=== PATIENT | male | born 1950 | race Caucasian/White ===

== ENCOUNTER 2020-12-17 10:09 | Inpatient (IN) ==
[2020-12-17] MEDS ORDERED: ONDANSETRON INJ 2 MG/ML 2 ML VIAL IV STA ×2 (11:54→14:15)
[2020-12-17] MEDS ORDERED: MoRPHine SULFATE 2 MG/ML CARP IV STA (11:54)
--- NOTE | 2020-12-17 11:56 | Emergency Department Note ---
History of Present Illness General Chief complaint: Pain (Generalized) Stated complaint: ACID REFLUX AND GENERALIZED PAIN Time Seen by Provider: 12/17/20 11:42 History of Present Illness Maximum Pain Intensity: 8 This is a 70-year-old male with a past medical history significant for that of [place], CHF, hypertension, chronic back pain, diabetes that presents to the emergency department via private vehicle accompanied by male with complaints of "acid reflux and generalized pain". The patient notes that he is here because he has been experiencing back pain for the past 40 years. This began when he fell from a ladder. He notes that the site of the pain is at L3-L4. He has been managing this. Then yesterday he notes that he went to pick something up and turned and went to grab the item quickly. As he did this he felt a pop and heard a pop in his back. He notes pain in his low back since that time. He has been in pain he notes for about 12 hours. Patient does note some soreness in the chest and does feel shortness of breath with the pain. He denies any true chest pain. Patient denies any pain radiating down his legs. In addition, the patient notes that he is now nauseous and is vomiting. He does also note some pain in the epigastric region. He denies any current anticoagulant use but recent hospitalization at [facility] is he notes he was on Plavix and heparin about a month ago but had a significant bleeding in the urine, stool and stomach. The antiplatelet/anticoagulants were then stopped. The patient denies any fevers or chills. Current pain /10. Patient does note that he is able to tolerate morphine and Zofran but does have significant adverse reactions to other meds. Home Medications Medication Instructions Recorded Confirmed Type aspirin 81 mg tablet,delayed 81 mg PO QAM 12/17/20 12/17/20 History release carvedilol 3.125 mg tablet 3.125 mg PO HS 12/17/20 12/17/20 History furosemide 40 mg tablet 40 mg PO BIDM 12/17/20 12/17/20 History insulin detemir U-100 100 unit/mL 20 unit SUBCUT BID 12/17/20 12/17/20 History (3 mL) subcutaneous pen (Levemir FlexTouch U-100 Insulin) isosorbide mononitrate 30 mg 30 mg PO DAILY 12/17/20 12/17/20 History tablet,extended release 24 hr pantoprazole 40 mg tablet,delayed 40 mg PO QAM 12/17/20 12/17/20 History release spironolactone 25 mg tablet 25 mg PO QAM 12/17/20 12/17/20 History trazodone 50 mg tablet 50 mg PO BID 12/17/20 12/17/20 History Allergies Allergy/AdvReac Type Severity Reaction Status Date / Time amlodipine [From [facility]] Allergy Confusion Verified 12/17/20 17:42 lisinopril Allergy Unconscious Verified 12/17/20 17:42 metoprolol Allergy Hypertensio Verified 12/17/20 17:42 n oxycodone Allergy "stops my Verified 12/17/20 17:42 breathing" tramadol Allergy "stops my Verified 12/17/20 17:42 breathing" insulin glargine AdvReac muscle Verified 12/17/20 17:42 [From Lantus U-100 Insulin] spasms metformin AdvReac muscle Verified 12/17/20 17:42 spasms sitagliptin [From Januvia] AdvReac makes me Verified 12/17/20 17:42 just vibrate [id number] Reductase AdvReac "it Verified 12/17/20 17:42 Inhibitor destroys my organs Past Med/Surg History Medical History (Updated 12/17/20 @ 21:13 by Deshawn Li PA-C) CAD (coronary artery disease) Cardiac cath in 2019 showed severe multivessel CAD, patient declining CABG Chronic back pain Chronic diastolic CHF (congestive heart failure) DM type 2 (diabetes mellitus, type 2) History of CVA (cerebrovascular accident) History of GI bleed History of hypertension Paranoid personality (disorder) Surgical History Hx of tonsillectomy Family History Denies family history of Heart disease Social History (Updated 12/17/20 @ 17:14 by VIC Davis) Smoking Status: Never smoker Second Hand Exposure: No; Do You Dip or Chew Tobacco: No; Tobacco Cessation Education Requested by Patient: No Hx Alcohol Use: No Hx Substance Use: No Preferred Language: Cape Verdean Communication Ability: Effective 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 Beliefs That Will Affect Care: None Current Living Situation: Family Current Living Situation Comment: lives with 90 year old mother Other Information That Helps Us Care for You: No Feels Safe at Home: Yes Safety Concerns: Feels Safe At This Time Assistive Devices: Cane and Glasses Assistive Devices Comment: none with paitient Review of Systems A total of 10 systems reviewed and were otherwise negative Physical Exam Vital Signs Vital Signs - 24 hr 12/17/20 10:31 12/17/20 10:36 12/17/20 11:54 Temperature 36.7 C Temperature Source Temporal Artery Scan Pulse Rate 92 H Pulse Rate [Right Finger] Pulse Rhythm [Right Finger] Pulse Strength [Right Finger] Respiratory Rate 20 Respiratory Effort / Characteristics Non-Labored Non-Labored Spontaneous Respiratory Depth Normal Normal Respiratory Pattern Regular Blood Pressure 159/80 H Blood Pressure [Right Arm] Blood Pressure Mean 106 Blood Pressure Mean [Right Arm] Blood Pressure Position [Right Arm] Pulse Oximetry 96 Oxygen Delivery Method Room Air Room Air Sepsis Recent Fever Within 48 Hours No Sepsis New/Unexplained Change in Mental Status N/A Sepsis Action Taken by Nursing No Action Required 12/17/20 12:04 12/17/20 14:00 Temperature Temperature Source Pulse Rate Pulse Rate [Right Finger] 92 H 95 H Pulse Rhythm [Right Finger] Regular Regular Pulse Strength [Right Finger] Normal Normal Respiratory Rate 20 16 Respiratory Effort / Characteristics Non-Labored Non-Labored Respiratory Depth Normal Normal Respiratory Pattern Regular Regular Blood Pressure Blood Pressure [Right Arm] 217/115 H 184/101 H Blood Pressure Mean Blood Pressure Mean [Right Arm] 149 128 Blood Pressure Position [Right Arm] Lying Lying Pulse Oximetry 95 96 Oxygen Delivery Method Room Air Room Air Sepsis Recent Fever Within 48 Hours Sepsis New/Unexplained Change in Mental Status Sepsis Action Taken by Nursing VITAL SIGNS - Vital signs and nursing notes were reviewed. Hypertensive, otherwise stable. GENERAL -70-year-old male appearing his stated age who is in no acute distress. Communicates well with provider and answers questions appropriately. SKIN -overlying the low back region within the integument there is a dark er ythematous hue with mottling noted throughout this region. No bleeding. No fluctuance. HEAD - NC/AT. EYES - Sclera anicteric. EARS - No deformities of external structures noted on gross examination bilaterally. No pain elicited with palpation of the tragus bilaterally. External auditory canals without discharge or otorrhea. Tympanic membranes pearly clemens without retraction or bulging. No fluid or purulent material visualized behind the TM. Handle of malleus, umbo, cone of light, pars tensa/flaccid all easily visualized. NOSE - Midline and without cyanosis. No epistaxis or purulent drainage noted. MOUTH/OROPHARYNX - Without perioral cyanosis. NECK - Neck with FROM. No nuchal rigidity. LUNGS - Chest wall symmetric without accessory muscle use, intercostals retractions, or central cyanosis. Normal vesicular breath sounds CTA B/L. No wheezes, rales, or rhonchi appreciated. CARDIAC - RRR with S1/S2. No murmur, rubs, or gallops appreciated. ABDOMEN - Abdominal contour normal without pulsations or visible masses. BS normoactive all four quadrants. No tenderness, palpable masses, hepato splenomegaly, or ascites noted. EXTREMITIES - No clubbing or peripheral cyanosis. +5/5 strength noted in UE/LE bilaterally. NEUROLOGIC - Cranial nerves II through XII grossly intact. PSYCH - A&Ox3 and cooperates fully with examiner. Pt is very pleasant and interacts well with examiner. Course Administered Medications Pantoprazole Sodium 40 mg/ (Dextrose) 100 mls @ 20 mls/hr IV Q5H AMANDO Stop: 01/16/21 13:14 Last Admin: 12/17/20 13:46 Dose: 8 mg/hr, 20 mls/hr Documented by: [id number] Sodium Chloride (Nss 1000ml) 1,000 mls @ 125 mls/hr IV .Q8H AMANDO Stop: 01/16/21 15:59 Last Admin: 12/17/20 17:48 Dose: 80 mls/hr Documented by: [id number] Nitroglycerin (Nitroglycerin 2% Ointment 30gm Tube) 1 inch EXT Q6 AMANDO Stop: 01/16/21 17:59 Last Admin: 12/17/20 17:48 Dose: 1 inch Documented by: [id number] Discontinued Medications Pantoprazole Sodium (Protonix Bolus/Drip) 0 mls @ 1 mls/hr IV ONE STA Stop: 12/17/20 12:55 Last Admin: 12/17/20 20:39 Dose: Not Given Documented by: [id number] Pantoprazole Sodium 80 mg/ (Dextrose) 120 mls @ 400 mls/hr IV NOW ONE Stop: 12/17/20 13:11 Last Infusion: 12/17/20 14:03 Dose: 0 mls/hr Documented by: [id number] Admin: 12/17/20 13:45 Dose: 400 mls/hr Documented by: [id number] Insulin Human Regular 5 units/ (Syringe) 5 mls @ 30 mls/min IV NOW STA Stop: 12/17/20 18:06 Last Admin: 12/17/20 18:22 Dose: 30 mls/min Documented by: [id number] Cosigned by: [id number] Insulin Aspart (Insulin Aspart 100 Units/Ml 3 Ml Pen) 0 units SC NOW STA Stop: 12/17/20 17:52 Last Admin: 12/17/20 18:21 Dose: 7 units Documented by: [id number] Cosigned by: [id number] Insulin Detemir (Insulin Detemir Flexpen/Flex Touch 100 Units/Ml 3ml) 25 units SC NOW STA Stop: 12/17/20 17:51 Last Admin: 12/17/20 18:20 Dose: 25 units Documented by: [id number] Cosigned by: [id number] Ioversol (Optiray 320 125ml) 120 ml IV ONCE ONE Stop: 12/17/20 13:11 Last Admin: 12/17/20 17:48 Dose: Not Given Documented by: [id number] Ioversol (Optiray 320 125ml) 120 ml IV ONCE ONE Stop: 12/17/20 13:25 Last Admin: 12/17/20 13:24 Dose: 120 ml Documented by: [id number] Morphine Sulfate (Morphine Sulfate 2 Mg/Ml Carp) 1 mg IV NOW STA Stop: 12/17/20 11:55 Last Admin: 12/17/20 12:23 Dose: 1 mg Documented by: [id number] Nitroglycerin (Nitroglycerin 2% Ointment 30gm Tube) Confirm Administered Dose 18 inch .ROUTE .STK-MED ONE Stop: 12/17/20 17:17 Last Admin: 12/17/20 17:48 Dose: Not Given Documented by: [id number] Ondansetron HCl (Ondansetron Inj 2 Mg/Ml 2 Ml Vial) 4 mg IV NOW STA Stop: 12/17/20 11:55 Last Admin: 12/17/20 12:23 Dose: 4 mg Documented by: [id number] Ondansetron HCl (Ondansetron Inj 2 Mg/Ml 2 Ml Vial) 4 mg IV NOW STA Stop: 12/17/20 14:16 Last Admin: 12/17/20 14:24 Dose: 4 mg Documented by: [id number] Medical Decision Making Laboratory Data Result diagrams: 12/17/20 19:33 12/17/20 19:33 Lab Results 12/17/20 12/17/20 12/17/20 Range/Units 12:11 12:12 12:12 WBC (4.8-10.8) K/uL RBC (4.7-6.1) M/uL Hgb (14.0-18.0) g/dL Hct (42-52) % MCV (80-100) fL MCH (25-34) pg MCHC (32-36) g/dL RDW Std Deviation (36.4-46.3) fL RDW Coeff of Pham (11.5-14.5) % Plt Count (130-400) K/uL MPV (7.4-10.4) fL Immature Gran % (Auto) % Neut % (Auto) % Lymph % (Auto) % Mclean % (Auto) % Eos % (Auto) % Baso % (Auto) % Neut # (Auto) (1.4-6.5) K/uL Lymph # (Auto) (1.2-3.4) K/uL Mclean # (Auto) (0.11-0.59) K/uL Eos # (Auto) (0-0.5) K/uL Baso # (Auto) (0-0.2) K/uL Immature Gran # (Auto) (0.00-0.02) K/uL PT 10.1 (9.0-12.0) Seconds INR 1.0 (0.9-1.1) APTT 26.4 (21.0-31.0) Seconds PTT Ratio 1.0 Sodium (136-145) mmol/L Potassium (3.5-5.1) mmol/L Chloride (98-107) mmol/L Carbon Dioxide (21-32) mmol/L Anion Gap (3-11) BUN (7-18) mg/dl Creatinine (0.6-1.4) mg/dl Est Cr Clr Drug Dosing Est GFR ( Amer) ml/min Est GFR (Non-Af Amer) ml/min BUN/Creatinine Ratio (10-20) Glucose (70-99) mg/dl Lactate Calcium (8.5-10.1) mg/dl Magnesium (1.8-2.4) mg/dl Total Bilirubin (0.2-1) mg/dl AST (15-37) U/L ALT (12-78) U/L Alkaline Phosphatase (45-117) U/L Total Creatine Kinase (39-308) U/L Troponin I (0-0.045) ng/ml Total Protein (6.4-8.2) gm/dl Albumin (3.4-5.0) gm/dl Globulin (2.5-4.0) gm/dl Albumin/Globulin Ratio (0.9-2) Lipase (73-393) U/L Procalcitonin (0-0.5) ng/ml TSH (0.300-4.500) uIu/ml Gastric Fluid pH 1 Gastric Occult Blood Positive A (Negative) COVID-19 Eval Order SARS-CoV-2 (PCR) (Negative) Blood Type AB Positive Antibody Screen NEGATIVE Crossmatch See Detail 12/17/20 12/17/20 12/17/20 Range/Units 12:12 12:50 12:50 WBC (4.8-10.8) K/uL RBC (4.7-6.1) M/uL Hgb (14.0-18.0) g/dL Hct (42-52) % MCV (80-100) fL MCH (25-34) pg MCHC (32-36) g/dL RDW Std Deviation (36.4-46.3) fL RDW Coeff of Pham (11.5-14.5) % Plt Count (130-400) K/uL MPV (7.4-10.4) fL Immature Gran % (Auto) % Neut % (Auto) % Lymph % (Auto) % Mclean % (Auto) % Eos % (Auto) % Baso % (Auto) % Neut # (Auto) (1.4-6.5) K/uL Lymph # (Auto) (1.2-3.4) K/uL Mclean # (Auto) (0.11-0.59) K/uL Eos # (Auto) (0-0.5) K/uL Baso # (Auto) (0-0.2) K/uL Immature Gran # (Auto) (0.00-0.02) K/uL PT (9.0-12.0) Seconds INR (0.9-1.1) APTT (21.0-31.0) Seconds PTT Ratio Sodium 132 L (136-145) mmol/L Potassium 4.3 (3.5-5.1) mmol/L Chloride 99 (98-107) mmol/L Carbon Dioxide 25 (21-32) mmol/L Anion Gap 8.0 (3-11) BUN 9 (7-18) mg/dl Creatinine 1.29 (0.6-1.4) mg/dl Est Cr Clr Drug Dosing Not Reportable Est GFR ( Amer) 65.1 ml/min Est GFR (Non-Af Amer) 56.2 ml/min BUN/Creatinine Ratio 7.3 L (10-20) Glucose 293 H (70-99) mg/dl Lactate Calcium 11.0 H (8.5-10.1) mg/dl Magnesium 2.3 (1.8-2.4) mg/dl Total Bilirubin 0.6 (0.2-1) mg/dl AST 19 (15-37) U/L ALT 17 (12-78) U/L Alkaline Phosphatase 99 (45-117) U/L Total Creatine Kinase 96 (39-308) U/L Troponin I 1.100 H* (0-0.045) ng/ml Total Protein 8.6 H (6.4-8.2) gm/dl Albumin 3.6 (3.4-5.0) gm/dl Globulin 5.0 H (2.5-4.0) gm/dl Albumin/Globulin Ratio 0.7 L (0.9-2) Lipase 124 (73-393) U/L Procalcitonin (0-0.5) ng/ml TSH 1.740 (0.300-4.500) uIu/ml Gastric Fluid pH Gastric Occult Blood (Negative) COVID-19 Eval Order Covid19 at [facility] SARS-CoV-2 (PCR) NEGATIVE (Negative) Blood Type Antibody Screen Crossmatch 12/17/20 12/17/20 12/17/20 Range/Units 12:55 12:55 12:55 WBC 10.91 H (4.8-10.8) K/uL RBC 5.06 (4.7-6.1) M/uL Hgb 15.8 (14.0-18.0) g/dL Hct 46.0 (42-52) % MCV 90.9 (80-100) fL MCH 31.2 (25-34) pg MCHC 34.3 (32-36) g/dL RDW Std Deviation 45.2 (36.4-46.3) fL RDW Coeff of Pham 13.7 (11.5-14.5) % Plt Count 282 (130-400) K/uL MPV 10.6 H (7.4-10.4) fL Immature Gran % (Auto) 0.2 % Neut % (Auto) 83.8 % Lymph % (Auto) 11.7 % Mclean % (Auto) 4.0 % Eos % (Auto) 0.1 % Baso % (Auto) 0.2 % Neut # (Auto) 9.14 H (1.4-6.5) K/uL Lymph # (Auto) 1.28 (1.2-3.4) K/uL Mclean # (Auto) 0.44 (0.11-0.59) K/uL Eos # (Auto) 0.01 (0-0.5) K/uL Baso # (Auto) 0.02 (0-0.2) K/uL Immature Gran # (Auto) 0.02 (0.00-0.02) K/uL PT (9.0-12.0) Seconds INR (0.9-1.1) APTT (21.0-31.0) Seconds PTT Ratio Sodium (136-145) mmol/L Potassium (3.5-5.1) mmol/L Chloride (98-107) mmol/L Carbon Dioxide (21-32) mmol/L Anion Gap (3-11) BUN (7-18) mg/dl Creatinine (0.6-1.4) mg/dl Est Cr Clr Drug Dosing Est GFR ( Amer) ml/min Est GFR (Non-Af Amer) ml/min BUN/Creatinine Ratio (10-20) Glucose (70-99) mg/dl Lactate Cancelled Calcium (8.5-10.1) mg/dl Magnesium (1.8-2.4) mg/dl Total Bilirubin (0.2-1) mg/dl AST (15-37) U/L ALT (12-78) U/L Alkaline Phosphatase (45-117) U/L Total Creatine Kinase (39-308) U/L Troponin I (0-0.045) ng/ml Total Protein (6.4-8.2) gm/dl Albumin (3.4-5.0) gm/dl Globulin (2.5-4.0) gm/dl Albumin/Globulin Ratio (0.9-2) Lipase (73-393) U/L Procalcitonin < 0.05 (0-0.5) ng/ml TSH (0.300-4.500) uIu/ml Gastric Fluid pH Gastric Occult Blood (Negative) COVID-19 Eval Order SARS-CoV-2 (PCR) (Negative) Blood Type Antibody Screen Crossmatch 12/17/20 Range/Units 14:30 WBC (4.8-10.8) K/uL RBC (4.7-6.1) M/uL Hgb (14.0-18.0) g/dL Hct (42-52) % MCV (80-100) fL MCH (25-34) pg MCHC (32-36) g/dL RDW Std Deviation (36.4-46.3) fL RDW Coeff of Hpam (11.5-14.5) % Plt Count (130-400) K/uL MPV (7.4-10.4) fL Immature Gran % (Auto) % Neut % (Auto) % Lymph % (Auto) % Mclean % (Auto) % Eos % (Auto) % Baso % (Auto) % Neut # (Auto) (1.4-6.5) K/uL Lymph # (Auto) (1.2-3.4) K/uL Mclean # (Auto) (0.11-0.59) K/uL Eos # (Auto) (0-0.5) K/uL Baso # (Auto) (0-0.2) K/uL Immature Gran # (Auto) (0.00-0.02) K/uL PT (9.0-12.0) Seconds INR (0.9-1.1) APTT (21.0-31.0) Seconds PTT Ratio Sodium (136-145) mmol/L Potassium (3.5-5.1) mmol/L Chloride (98-107) mmol/L Carbon Dioxide (21-32) mmol/L Anion Gap (3-11) BUN (7-18) mg/dl Creatinine (0.6-1.4) mg/dl Est Cr Clr Drug Dosing Est GFR ( Amer) ml/min Est GFR (Non-Af Amer) ml/min BUN/Creatinine Ratio (10-20) Glucose (70-99) mg/dl Lactate 2.1 H* Calcium (8.5-10.1) mg/dl Magnesium (1.8-2.4) mg/dl Total Bilirubin (0.2-1) mg/dl AST (15-37) U/L ALT (12-78) U/L Alkaline Phosphatase (45-117) U/L Total Creatine Kinase (39-308) U/L Troponin I (0-0.045) ng/ml Total Protein (6.4-8.2) gm/dl Albumin (3.4-5.0) gm/dl Globulin (2.5-4.0) gm/dl Albumin/Globulin Ratio (0.9-2) Lipase (73-393) U/L Procalcitonin (0-0.5) ng/ml TSH (0.300-4.500) uIu/ml Gastric Fluid pH Gastric Occult Blood (Negative) COVID-19 Eval Order SARS-CoV-2 (PCR) (Negative) Blood Type Antibody Screen Crossmatch Imaging Data Radiologist's Impression: Abdomen/Pelvis CT 12/17/20 11:54 CT abd pelvis IV con only CLINICAL HISTORY: back pain, emesis TECHNIQUE: Helical axial images of the abdomen and pelvis were obtained and displayed. Automated dose lowering techniques and/or adjustment according to patient size were utilized for this exam. This exam was performed with intravenous contrast. COMPARISON: None available at the time of this dictation. FINDINGS: Lower chest: For findings above the diaphragm, please see CT chest performed same day. Liver: Unremarkable. No focal lesions are seen. Gallbladder and biliary tree: No calcified gallstones. Normal caliber wall. No intra- or extrahepatic biliary ductal dilation. Pancreas: Fatty replacement of the pancreas is seen. Spleen: Unremarkable. Adrenals: Unremarkable. Kidneys and ureters: Unremarkable. Bladder: Unremarkable. Reproductive organs: Prostatomegaly is seen. Bowel: Unremarkable appearance of the bowel. The appendix is normal. A moderate hiatal hernia is seen. Mild smooth wall thickening is seen in the pylorus. Lymph nodes Retroperitoneal: Subcentimeter lewis hepatis nodes are noted. Mesenteric: Unremarkable. Pelvic: Unremarkable. Peritoneum: Normal Vessels: Extensive calcified and noncalcified atherosclerotic disease is seen in the aorta. Origin of the great vessels appears patent in this nonangiographic phase study. Abdominal wall: Bilateral fat-containing inguinal hernias are seen. Bones: Degenerative changes in the visualized spine. IMPRESSION: Moderate hiatal hernia. Questionable smooth wall thickening of the pylorus may represent inflammatory process. No evidence of other acute abnormality and in particular no evidence of bowel obstruction. ACT 112: Negative or not required by law. Electronically signed by: Adonis Bearden M.D. 12/17/2020 1:43 PM Chest CTA 12/17/20 13:01 CT angio chest PE protocol CLINICAL HISTORY: emesis, troponin elevation, dyspnea TECHNIQUE: Multidetector row helical CT of the chest was performed. Coronal and sagittal reformations were obtained. Automated dose lowering techniques and/or adjustment according to patient size were utilized for this exam. Comparison: None available at the time of this dictation. FINDINGS: Lungs and pleura: Pleural based linear and nodular opacities in the right lung base are seen. There is a left upper lobe pulmonary nodule measuring 7 mm in diameter. Heart and pericardium: There is cardiomegaly without evidence of pericardial effusion. Vessels: No evidence of pulmonary embolism. Mediastinum and roly: Unremarkable. Chest wall and lower neck: Unremarkable. Abdomen: For findings below the diaphragm, please refer to CT of the abdomen dated the same. Bones: Degenerative changes in the thoracic spine. IMPRESSION: 1. No evidence of pulmonary embolism. 2. Right lower lung reticulonodular opacities may represent pleural-based scarring, airspace disease, or underlying nodule. Follow-up to resolution is recommended. 3. 7 mm pulmonary nodule in the left upper lobe. According to Fleischner criter ia, CT chest should be performed at 6-12 months. In high-risk patients, a 18-24 month follow-up is recommended, in low-risk patients, this 18-24 month follow-up CT is optional. ACT 112: Negative or not required by law. Electronically signed by: Adonis Bearden M.D. 12/17/2020 1:37 PM MDM Narrative Patient was seen and evaluated as above in room A04. Review was performed of nursing notes and vital signs. No previous history for review in the EMR. Patient reportedly has been to [facility] before. I did have our staff reach out to that facility to obtain record. No report available thus far. After obtaining a thorough history and physical examination the above work up was performed. Patient presents to us today with several complaints. He has back pain but also epigastric abdominal pain that has developed upon arrival with associated nausea, and vomiting that is a black-like/dark substance. No bright red blood. Patient is concerned that this is blood. He also has some soreness in his chest. He has some shortness of breath from the back pain. No signs of trauma. Vital signs reveal hypertension. Afebrile. No evidence of cauda equina syndrome. No lower extremity weakness, bowel or bladder incontinence, numbness or tingling in the genital region. IV access was established. Labs were drawn. Patient does note that he can tolerate morphine and Zofran. These were ordered. Patient also notes he is able to tolerate IV contrast for CT scans. CTA chest and abd/pelvis ct obtained. These are as above. These are essentially negative for any emergent process. EKG was obtained. This reveals sinus rhythm at a rate of [address] elevation. QTc 450. QRS 100. Mild leukocytosis 10.91. No anemia. Mild hyponatremia at 132. There is lactate elevation minimally. Hyperglycemia. Troponin elevation noted at 1.1. Gastric occult blood test positive. Covid negative. Type and screen and 2 units of blood were ordered with the patient's dark emesis that is heme positive. Patient ultimately consented to receiving transfusion if medically necessary but only if medically necessary. Patient does not have any findings of ST [place]RON on EKG. No active chest pain at this time. With the patient's emesis at this time containing blood as well as in the setting of troponin elevation I do believe that further evaluation and management in the inpatient setting is warranted. Case discussed with the attending physician as well as the hospitalist. Please refer to further docum entation regarding his stay. Patient was medicated here with IV Zofran, IV morphine for pain, IV Protonix bolus/drip. GCS: 15 In the evaluation and treatment of this patient the following differential diagnoses were entertained: Perforation, [place], PE, dissection, GI bleed, acute abdomen, bowel obstruction, cauda equina syndrome, among others. Impression & Plan UGIB (upper gastrointestinal bleed), Elevated troponin, Chronic back pain, Coffee ground emesis Discharge Plan Visit Data Chief Complaint: Pain (Generalized) Stated Complaint: ACID REFLUX AND GENERALIZED PAIN ED Provider: Demetrius Stringer ED Midlevel Provider: Deshawn Li Discharge Problem: UGIB (upper gastrointestinal bleed), Elevated troponin, Chronic back pain, Coffee ground emesis Patient Disposition: Admitted As Inpatient Condition: Good Discharge Instructions Interventions: ED Discharge Assessment Last Done: 12/17/20 15:38
[2020-12-17 12:36] LABS: Gastric Occult Blood Positive (Negative); pH Gastric Fluid 1
[2020-12-17 12:39] LABS: Partial Thromboplastin Time 26.4 Seconds (21.0-31.0); Prothrombin Time 10.1 Seconds (9.0-12.0)
[2020-12-17 12:43] LABS: Albumin Level 3.6 gm/dl (3.4-5.0); BUN Creatinine Ratio 7.3 (10-20); Blood Urea Nitrogen 9 mg/dl (7-18); Carbon Dioxide 25 mmol/L (21-32); Chloride 99 mmol/L (98-107); Est GFR (African American) 65.1 ml/min; Est GFR (Non-African American) 56.2 ml/min; Glucose 293 mg/dl (70-99); Lipase 124 U/L (73-393); Magnesium 2.3 mg/dl (1.8-2.4); Potassium 4.3 mmol/L (3.5-5.1); Sodium 132 mmol/L (136-145)
[2020-12-17] MEDS ORDERED: PANTOprazole 80 MG in DEXTROSE 5% 100 ML IV ONE (12:54)
[2020-12-17] MEDS ORDERED: PANTOPRAZOLE BOLUS/DRIP 1 EA IV STA (12:54)
[2020-12-17 12:59] LABS: Alanine Aminotransferase 17 U/L (12-78); Albumin Globulin Ratio 0.7 (0.9-2); Alkaline Phosphatase 99 U/L (45-117); Aspartate Aminotransferase 19 U/L (15-37); Bilirubin,Total 0.6 mg/dl (0.2-1); Creatine Kinase 96 U/L (39-308); Total Protein 8.6 gm/dl (6.4-8.2)
[2020-12-17] MEDS ORDERED: OPTIRAY 320 125ml IV ONE ×2 (13:10→13:24)
[2020-12-17 13:15] LABS: Basophils # (auto) 0.02 K/uL (0-0.2); Basophils % (auto) 0.2 %; Eosinophils # (auto) 0.01 K/uL (0-0.5); Eosinophils % (auto) 0.1 %; Hemoglobin 15.8 g/dL (14.0-18.0); Immature Granulocytes # (auto) 0.02 K/uL (0.00-0.02); Immature Granulocytes % (auto) 0.2 %; Lymphocytes # (auto) 1.28 K/uL (1.2-3.4); Lymphocytes % (auto) 11.7 %; Mean Corpuscular Hemoglobin 31.2 pg (25-34); Mean Corpuscular Hgb Conc 34.3 g/dL (32-36); Mean Corpuscular Volume 90.9 fL (80-100); Mean Platelet Volume 10.6 fL (7.4-10.4); Monocytes # (auto) 0.44 K/uL (0.11-0.59); Neutrophils # (auto) 9.14 K/uL (1.4-6.5); Neutrophils % (auto) 83.8 %; Platelet Count 282 K/uL (130-400); RDW Coefficient of Variation 13.7 % (11.5-14.5); RDW Standard Deviation 45.2 fL (36.4-46.3); Red Blood Count 5.06 M/uL (4.7-6.1); White Blood Count 10.91 K/uL (4.8-10.8)
--- NOTE | 2020-12-17 13:39 | CT Scan Report ---
CT angio chest PE protocol CLINICAL HISTORY: emesis, troponin elevation, dyspnea TECHNIQUE: Multidetector row helical CT of the chest was performed. Coronal and sagittal reformations were obtained. Automated dose lowering techniques and/or adjustment according to patient size were u tilized for this exam. Comparison: None available at the time of this dictation. FINDINGS: Lungs and pleura: Pleural based linear and nodular opacities in the right lung base are seen. There i s a left upper lobe pulmonary nodule measuring 7 mm in diameter. Heart and pericardium: There is cardiomegaly without evidence of pericardial effusion. Vessels: No evidence of pulmonary embolism. Mediastinum and roly: Unremarkable. Chest wall and lower neck: Unremarkable. Abdomen: For findings below the diaphragm, please refer to CT of the abdomen dated the same. Bones: Degenerative changes in the thoracic spine. IMPRESSION: 1. No evidence of pulmonary embolism. 2. Right lower lung reticulonodular opacities may represent pleural-based scarring, airspace disease , or underlying nodule. Follow-up to resolution is recommended. 3. 7 mm pulmonary nodule in the left upper lobe. According to Fleischner criteria, CT chest should b e performed at 6-12 months. In high-risk patients, a 18-24 month follow-up is recommended, in low-ris k patients, this 18-24 month follow-up CT is optional. ACT 112: Negative or not required by law. Electronically signed by: Adonis Bearden M.D. 12/17/2020 1:37 PM
--- NOTE | 2020-12-17 13:44 | CT Scan Report ---
CT abd pelvis IV con only CLINICAL HISTORY: back pain, emesis TECHNIQUE: Helical axial images of the abdomen and pelvis were obtained and displayed. Automated dose lowering techniques and/or adjustment according to patient size were utilized for this exam. This e xam was performed with intravenous contrast. COMPARISON: None available at the time of this dictation. FINDINGS: Lower chest: For findings above the diaphragm, please see CT chest performed same day. Liver: Unremarkable. No focal lesions are seen. Gallbladder and biliary tree: No calcified gallstones. Normal caliber wall. No intra- or extrahepatic biliary ductal dilation. Pancreas: Fatty replacement of the pancreas is seen. Spleen: Unremarkable. Adrenals: Unremarkable. Kidneys and ureters: Unremarkable. Bladder: Unremarkable. Reproductive organs: Prostatomegaly is seen. Bowel: Unremarkable appearance of the bowel. The appendix is normal. A moderate hiatal hernia is seen . Mild smooth wall thickening is seen in the pylorus. Lymph nodes Retroperitoneal: Subcentimeter lewis hepatis nodes are noted. Mesenteric: Unremarkable. Pelvic: Unremarkable. Peritoneum: Normal Vessels: Extensive calcified and noncalcified atherosclerotic disease is seen in the aorta. Origin of the great vessels appears patent in this nonangiographic phase study. Abdominal wall: Bilateral fat-containing inguinal hernias are seen. Bones: Degenerative changes in the visualized spine. IMPRESSION: Moderate hiatal hernia. Questionable smooth wall thickening of the pylorus may represent inflammatory process. No evidence of other acute abnormality and in particular no evidence of bowel obstruction. ACT 112: Negative or not required by law. Electronically signed by: Adonis Bearden M.D. 12/17/2020 1:43 PM
[2020-12-17] MEDS: PANTOprazole 40 MG in DEXTROSE 5% 100 ML IV SCH ×2 (13:46→21:04)
--- NOTE | 2020-12-17 13:52 | Electrocardiogram Report ---
Test Reason : Blood Pressure : / mmHG Vent. Rate : 090 BPM Atrial Rate : 090 BPM P-R Int : 266 ms QRS Dur : 100 ms QT Int : 368 ms P-R-T Axes : 069 -42 112 degrees QTc Int : 450 ms Sinus rhythm with 1st degree A-V block with occasional Premature ventricular complexes Left axis deviation Left ventricular hypertrophy with repolarization abnormality Possible Anterolateral infarct , age undetermined Inferior infarct , age undetermined Abnormal ECG No previous ECGs available Confirmed by Lionel Luther ([id number]) on 12/17/2020 1:51:42 PM Referred By: Confirmed By:Lionel Luther
[2020-12-17] MEDS ORDERED: SODIUM CHLORIDE 0.9% 250 ML IV PRN (14:00)
[2020-12-17] MEDS ORDERED: PATIENT'S ALLERGY INFO NEEDS ENTERED SCH (15:30)
[2020-12-17] MEDS ORDERED: PHARMACY GLYCEMIC MGMT CONSULT PRN (15:49)
--- NOTE | 2020-12-17 15:58 | Gastrointestinal Consultation ---
Date of Consultation December 17, 2020 Assessment & Plan (1) Coffee ground emesis: Tre presented to the emergency room for evaluation of back discomfort and had coffee-ground emesis this afternoon. It appears that he has had no significant drop in his hemoglobin or hematocrit. Of note the patient is presently on dual antiplatelet therapy which could certainly cause gastritis. He does have a hiatal hernia on imaging which could even indicate a lesion such as a Lamine's erosion. As there has been no drop in hematocrit or hemoglobin and the patient has no melena upper endoscopy can probably be done on Sunday unless the patient develops instability over the weekend. Recommendations Protonix 40 mg twice daily Monitor hemoglobin and hematocrit should there be significant drop endoscopy could be expedited Upper endoscopy to be arranged for Sunday with Dr. Contreras Recommend holding NSAIDS, antiplatelet agents and anticoagulation if possible History of Present Illness Reason for Consultation: Coffee-ground emesis Attending Physician: Chema Estrada MD History of Present Illness The patient is a 70-year-old male who presented to the emergency room this afternoon for evaluation of back discomfort. Based on a review of the ER note the patient notes that he was in his usual state of health until he moved in the wrong direction and developed severe back discomfort. He was recently seen at another emergency room and left AGAINST MEDICAL ADVICE. Of note the patient had mild epigastric discomfort and coffee-ground emesis in the emergency room this afternoon. The patient is somewhat of a poor historian as a result of underlying schizophrenia and denies having black sticky stool, difficulty with swallowing pain with swallowing fevers chills or sweats. Home Medications Medication Instructions Recorded Confirmed Type aspirin 81 mg tablet,delayed 81 mg PO QAM 12/17/20 12/17/20 History release carvedilol 3.125 mg tablet 3.125 mg PO HS 12/17/20 12/17/20 History furosemide 40 mg tablet 40 mg PO BIDM 12/17/20 12/17/20 History insulin detemir U-100 100 unit/mL 20 unit SUBCUT BID 12/17/20 12/17/20 History (3 mL) subcutaneous pen (Levemir FlexTouch U-100 Insulin) isosorbide mononitrate 30 mg 30 mg PO DAILY 12/17/20 12/17/20 History tablet,extended release 24 hr pantoprazole 40 mg tablet,delayed 40 mg PO QAM 12/17/20 12/17/20 History release spironolactone 25 mg tablet 25 mg PO QAM 12/17/20 12/17/20 History trazodone 50 mg tablet 50 mg PO BID 12/17/20 12/17/20 History Patient History Medical History CHF (congestive heart failure) History of GI bleed History of hypertension Hx of myocardial infarction Surgical History Hx of tonsillectomy Social History Smoking Status: Never smoker Feels Safe at Home: Yes Review of Systems Constitutional: no fever, no sweats and no weight loss Eyes: no diplopia Ear, Nose, Mouth, Throat: no ear pain and no ear trauma Respiratory: no cough and no hemoptysis Cardiovascular: no chest pain with activity and no dyspnea at rest Gastrointestinal: + heartburn, + vomiting and + coffee ground emesis; no belching, no bloating, no early satiety, no nausea, no hematemesis, no pain with swallowing, no dysphagia and no change in stools Genitourinary: no urinary frequency Musculoskeletal: no radicular pain Integumentary: no rash Neurologic: no falls and no paralysis Psychiatric: + problem reported (history of schizophrenia) Physical Exam Constitutional: WD/WN, vitals as above Eyes: PERRL, conjunctivae normal, anicteric sclerae ENMT: external ear and nose normal, oropharynx normal Neck: + trachea not midline and no neck crepitus Respiratory: Auscultation: + wheezes; no crackles and no rales Cardiovascular: Rate/Rhythm: regular rate Gastrointestinal (Abdomen): normal bowel sounds, soft, nontender, no hepatosplenomegaly Skin: no rashes, warm and dry Neurologic: PERRL, EOMI, accommodation nl, no face palsy, no dysarthria Results & Data ([facility]) Vital Signs (Past 12 Hours) Vital Signs Temp Pulse Pulse Resp BP BP Pulse Ox 12/17/20 15:38 37.0 C 96 H 18 173/98 H 98 12/17/20 14:00 95 H 16 184/101 H 96 12/17/20 12:04 92 H 20 217/115 H 95 12/17/20 10:31 36.7 C 92 H 20 159/80 H 96 Laboratory Results Laboratory Results - last 24 hr 12/17/20 12/17/20 12/17/20 12:11 12:12 12:12 WBC RBC Hgb Hct MCV MCH MCHC RDW Std Deviation RDW Coeff of Pham Plt Count MPV Immature Gran % (Auto) Neut % (Auto) Lymph % (Auto) [place] % (Auto) Eos % (Auto) Baso % (Auto) Neut # (Auto) Lymph # (Auto) [place] # (Auto) Eos # (Auto) Baso # (Auto) Immature Gran # (Auto) PT 10.1 INR 1.0 APTT 26.4 PTT Ratio 1.0 Sodium Potassium Chloride Carbon Dioxide Anion Gap BUN Creatinine Est Cr Clr Drug Dosing Est GFR ( Amer) Est GFR (Non-Af Amer) BUN/Creatinine Ratio Glucose Lactate Calcium Magnesium Total Bilirubin AST ALT Alkaline Phosphatase Total Creatine Kinase Troponin I Total Protein Albumin Globulin Albumin/Globulin Ratio Lipase Procalcitonin TSH Gastric Fluid pH 1 Gastric Occult Blood Positive A COVID-19 Eval Order SARS-CoV-2 (PCR) Blood Type AB Positive Antibody Screen NEGATIVE Crossmatch See Detail 12/17/20 12/17/20 12/17/20 12:12 12:50 12:50 WBC RBC Hgb Hct MCV MCH MCHC RDW Std Deviation RDW Coeff of Pham Plt Count MPV Immature Gran % (Auto) Neut % (Auto) Lymph % (Auto) [place] % (Auto) Eos % (Auto) Baso % (Auto) Neut # (Auto) Lymph # (Auto) [place] # (Auto) Eos # (Auto) Baso # (Auto) Immature Gran # (Auto) PT INR APTT PTT Ratio Sodium 132 L Potassium 4.3 Chloride 99 Carbon Dioxide 25 Anion Gap 8.0 BUN 9 Creatinine 1.29 Est Cr Clr Drug Dosing Not Reportable Est GFR ( Amer) 65.1 Est GFR (Non-Af Amer) 56.2 BUN/Creatinine Ratio 7.3 L Glucose 293 H Lactate Calcium 11.0 H Magnesium 2.3 Total Bilirubin 0.6 AST 19 ALT 17 Alkaline Phosphatase 99 Total Creatine Kinase 96 Troponin I 1.100 H* Total Protein 8.6 H Albumin 3.6 Globulin 5.0 H Albumin/Globulin Ratio 0.7 L Lipase 124 Procalcitonin TSH 1.740 Gastric Fluid pH Gastric Occult Blood COVID-19 Eval Order Covid19 at [facility] SARS-CoV-2 (PCR) NEGATIVE Blood Type Antibody Screen Crossmatch 12/17/20 12/17/20 12/17/20 12:55 12:55 12:55 WBC 10.91 H RBC 5.06 Hgb 15.8 Hct 46.0 MCV 90.9 MCH 31.2 MCHC 34.3 RDW Std Deviation 45.2 RDW Coeff of Pham 13.7 Plt Count 282 MPV 10.6 H Immature Gran % (Auto) 0.2 Neut % (Auto) 83.8 Lymph % (Auto) 11.7 [place] % (Auto) 4.0 Eos % (Auto) 0.1 Baso % (Auto) 0.2 Neut # (Auto) 9.14 H Lymph # (Auto) 1.28 [place] # (Auto) 0.44 Eos # (Auto) 0.01 Baso # (Auto) 0.02 Immature Gran # (Auto) 0.02 PT INR APTT PTT Ratio Sodium Potassium Chloride Carbon Dioxide Anion Gap BUN Creatinine Est Cr Clr Drug Dosing Est GFR ( Amer) Est GFR (Non-Af Amer) BUN/Creatinine Ratio Glucose Lactate Cancelled Calcium Magnesium Total Bilirubin AST ALT Alkaline Phosphatase Total Creatine Kinase Troponin I Total Protein Albumin Globulin Albumin/Globulin Ratio Lipase Procalcitonin < 0.05 TSH Gastric Fluid pH Gastric Occult Blood COVID-19 Eval Order SARS-CoV-2 (PCR) Blood Type Antibody Screen Crossmatch 12/17/20 14:30 WBC RBC Hgb Hct MCV MCH MCHC RDW Std Deviation RDW Coeff of Pahm Plt Count MPV Immature Gran % (Auto) Neut % (Auto) Lymph % (Auto) [place] % (Auto) Eos % (Auto) Baso % (Auto) Neut # (Auto) Lymph # (Auto) [place] # (Auto) Eos # (Auto) Baso # (Auto) Immature Gran # (Auto) PT INR APTT PTT Ratio Sodium Potassium Chloride Carbon Dioxide Anion Gap BUN Creatinine Est Cr Clr Drug Dosing Est GFR ( Amer) Est GFR (Non-Af Amer) BUN/Creatinine Ratio Glucose Lactate 2.1 H* Calcium Magnesium Total Bilirubin AST ALT Alkaline Phosphatase Total Creatine Kinase Troponin I Total Protein Albumin Globulin Albumin/Globulin Ratio Lipase Procalcitonin TSH Gastric Fluid pH Gastric Occult Blood COVID-19 Eval Order SARS-CoV-2 (PCR) Blood Type Antibody Screen Crossmatch Diagnostic Findings CT abd pelvis IV con only CLINICAL HISTORY: back pain, emesis TECHNIQUE: Helical axial images of the abdomen and pelvis were obtained and displayed. Automated dose lowering techniques and/or adjustment according to patient size were utilized for this exam. This exam was performed with intravenous contrast. COMPARISON: None available at the time of this dictation. FINDINGS: Lower chest: For findings above the diaphragm, please see CT chest performed same day. Liver: Unremarkable. No focal lesions are seen. Gallbladder and biliary tree: No calcified gallstones. Normal caliber wall. No intra- or extrahepatic biliary ductal dilation. Pancreas: Fatty replacement of the pancreas is seen. Spleen: Unremarkable. Adrenals: Unremarkable. Kidneys and ureters: Unremarkable. Bladder: Unremarkable. Reproductive organs: Prostatomegaly is seen. Bowel: Unremarkable appearance of the bowel. The appendix is normal. A moderate hiatal hernia is seen. Mild smooth wall thickening is seen in the pylorus. Lymph nodes Retroperitoneal: Subcentimeter lewis hepatis nodes are noted. Mesenteric: Unremarkable. Pelvic: Unremarkable. Peritoneum: Normal Vessels: Extensive calcified and noncalcified atherosclerotic disease is seen in the aorta. Origin of the great vessels appears patent in this nonangiographic phase study. Abdominal wall: Bilateral fat-containing inguinal hernias are seen. Bones: Degenerative changes in the visualized spine. IMPRESSION: Moderate hiatal hernia. Questionable smooth wall thickening of the pylorus may represent inflammatory process. No evidence of other acute abnormality and in particular no evidence of bowel obstruction.
--- NOTE | 2020-12-17 16:42 | Anesthesiology Progress Note ---
Date of Service December 17, 2020 Assessment & Plan Admission and Anticipated Discharge Date Admission Date: December 17, 2020 Subjective The patient developed coffee ground emesis in the ED and may require endoscopy. The patient requested to speak to an anesthesiologist due to his fear of anesthesia. Per the patient, his heart stopped during a surgical procedure in [place] during the 1970s. Since then he has had a fear of anesthesia. He adds that this was further reinforced 4 years ago during an admission to [facility] when he experienced heart failure after being in the ICU. Of note, he denies receiving any anesthesia or having a surgical procedure during that admission. At this time, there are no plans to bring the patient to the operating room in the next 1-2 days. GI currently plans to monitor the patient over the weekend and possibly do an endoscopy on Sunday. In addition, the patient is currently being evaluated by cardiology for his troponin levels. I reassured the patient that we should be able to provide him with a safe anesthetic, but it is difficult to discuss anesthetic details when the patient is still being evaluated and does not have a definitive surgical procedure scheduled. Anesthesia will continue to monitor the patient's chart over the weekend and can discuss an anesthetic plan in more detail when more information is available. Serina Gaston MD, PhD Anesthesiologist Physical Exam Vital Signs: Last Vital Signs Temp 37.0 C 12/17/20 15:38 Pulse 96 H 12/17/20 15:38 Resp 18 12/17/20 15:38 BP 173/98 H 12/17/20 15:38 Pulse Ox 98 12/17/20 15:38 Results & Data ([facility]) Medications Administered Pantoprazole Sodium 40 mg/ (Dextrose) 100 mls @ 20 mls/hr IV Q5H AMANDO Stop: 01/16/21 13:14 Last Admin: 12/17/20 13:46 Dose: 8 mg/hr, 20 mls/hr Documented by: [id number]
--- NOTE | 2020-12-17 16:59 | History & Physical Report ---
Date of Service December 17, 2020 Assessment & Plan (1) UGIB (upper gastrointestinal bleed): Plan: -Admit to telemetry -Patient presenting from home with reports of worsening chronic back pain and coffee-ground emesis. Patient recently admitted to [facility] 11/13- 11/14 for hematemesis. Patient was treated with an NG tube and had improvement in symptoms. Patient declined EGD. FOBT was negative. Hgb 13.7. -In the ED, patient is hemodynamically stable with actually hypertension. Hgb is 15.8 -CT ABD/pelvis unremarkable for acute findings -Emesis tested occult blood positive -S/p Protonix bolus and drip in the ED, continue with IV PPI drip -Trend H&H -Patient expresses concern over sedation for EGD procedure, will have anesthesia evaluate the patient -GI consult, case discussed with Neha HO (2) Elevated troponin: (3) CAD (coronary artery disease): (4) Hypertensive urgency: Plan: -Initial troponin 1.1, EKG nonischemic appearing -Cardiac cath in 2019 demonstrated multivessel CAD however patient declined CABG -No reports of chest pain -Elevated troponin likely due to demand ischemia from acute GI bleeding and hypertensive urgency -Trend troponin, resting echo -Cardiology consult, input appreciated - Recommend discontinuation of isosorbide with addition of topical nitrates to improve blood pressure control -Continue beta-luisa, hold ASA in the setting of acute upper GI bleeding (5) DM type 2 (diabetes mellitus, type 2): Plan: -Unknown HgbA1c, check with a.m. labs -On Levemir at home -Glycemic pharmacy consult (6) Chronic diastolic CHF (congestive heart failure): Plan: -EF reported as low as 35% in the past, however normal per most recent echocardiogram -Appears euvolemic, hold home diuretics for now in the setting of acute upper GI bleeding -Monitor volume status closely (7) Paranoid personality (disorder): Plan: -Currently not on any psychiatric medications -During exam, patient appears to be very paranoid and distrustful of medical procedures and medications. (8) History of CVA (cerebrovascular accident): Plan: -Holding ASA due to acute upper GI bleeding (9) Chronic back pain: Plan: -Typically controlled with Tylenol, patient reports he initially presented with acute worsening of his chronic back pain however states that it is currently at baseline (10) DVT prophylaxis: Plan: -SCDs due to GI bleeding Admission and Anticipated Discharge Date Admission Date: December 17, 2020 History of Present Illness Chief Complaint: Back pain, vomiting Primary Care Provider: Scarlett Ariza MD 70-year-old male with PMH DM type II, chronic diastolic CHF, history of CVA, chart history of CAD, chronic back pain, paranoid personality disorder, other problems to below who presents the ED for evaluation of back pain and vomiting. Patient recently admitted to [facility] 11/13-11/14 for hematemesis. Patient was treated with an NG tube and had improvement in symptoms. Patient declined EGD. FOBT was negative. Hgb 13.7. Patient reports he went to bend over and reach for something yesterday and are exacerbated his chronic back pain. He initially wanted to be evaluated in the ED for worsening back pain however shortly before leaving for the hospital, he developed coffee-ground emesis. Reports a black bowel movement this morning. Patient denies abdominal pain. No chest pain or shortness of breath. Patient denies lightheadedness, dizziness, diaphoresis, syncopal events. No fevers or chills. Denies urinary symptoms. In the ED, Hgb is stable at 15.8. Blood pressures are running on the higher side. CT ABD/pelvis shows signs of moderate hiatal hernia, no other acute findings noted. Initial troponin 1.1, EKG appears nonischemic. Patient was given IV morphine, IV Zofran, Protonix bolus and started on a drip. Allergies Allergy/AdvReac Type Severity Reaction Status Date / Time amlodipine [From Norvasc] Allergy Confusion Verified 12/17/20 17:42 lisinopril Allergy Unconscious Verified 12/17/20 17:42 metoprolol Allergy Hypertensio Verified 12/17/20 17:42 n oxycodone Allergy "stops my Verified 12/17/20 17:42 breathing" tramadol Allergy "stops my Verified 12/17/20 17:42 breathing" insulin glargine AdvReac muscle Verified 12/17/20 17:42 [From Lantus U-100 Insulin] spasms metformin AdvReac muscle Verified 12/17/20 17:42 spasms sitagliptin [From Januvia] AdvReac makes me Verified 12/17/20 17:42 just vibrate [id number] Reductase AdvReac "it Verified 12/17/20 17:42 Inhibitor destroys my organs Home Medications Medication Instructions Recorded Confirmed Type aspirin 81 mg tablet,delayed 81 mg PO QAM 12/17/20 12/17/20 History release carvedilol 3.125 mg tablet 3.125 mg PO HS 12/17/20 12/17/20 History furosemide 40 mg tablet 40 mg PO BIDM 12/17/20 12/17/20 History insulin detemir U-100 100 unit/mL 20 unit SUBCUT BID 12/17/20 12/17/20 History (3 mL) subcutaneous pen (Levemir FlexTouch U-100 Insulin) isosorbide mononitrate 30 mg 30 mg PO DAILY 12/17/20 12/17/20 History tablet,extended release 24 hr pantoprazole 40 mg tablet,delayed 40 mg PO QAM 12/17/20 12/17/20 History release spironolactone 25 mg tablet 25 mg PO QAM 12/17/20 12/17/20 History trazodone 50 mg tablet 50 mg PO BID 12/17/20 12/17/20 History Past Med/Surg History Medical History (Updated 12/17/20 @ 21:13 by Deshawn Li PA-C) CAD (coronary artery disease) Cardiac cath in 2019 showed severe multivessel CAD, patient declining CABG Chronic back pain Chronic diastolic CHF (congestive heart failure) DM type 2 (diabetes mellitus, type 2) History of CVA (cerebrovascular accident) History of GI bleed History of hypertension Paranoid personality (disorder) Surgical History Hx of tonsillectomy Family History Denies family history of Heart disease Social History (Updated 12/17/20 @ 17:14 by VIC Davis) Smoking Status: Never smoker Second Hand Exposure: No; Do You Dip or Chew Tobacco: No; Tobacco Cessation Education Requested by Patient: No Hx Alcohol Use: No Hx Substance Use: No Preferred Language: Kiswahili Communication Ability: Effective Optometrist Owner Required: No Beliefs That Will Affect Care: None Current Living Situation: Family Current Living Situation Comment: lives with 90 year old mother Other Information That Helps Us Care for You: No Feels Safe at Home: Yes Safety Concerns: Feels Safe At This Time Assistive Devices: None Assistive Devices Comment: none with paitient Review of Systems Review of Systems: ROS per HPI, all other systems reviewed and negative Physical Exam Constitutional: WD/WN, vitals as above Eyes: PERRL, conjunctivae normal, anicteric sclerae ENMT: external ear and nose normal, oropharynx normal Respiratory: normal respiratory effort, lungs clear to auscultation Cardiovascular: Rate/Rhythm: regular rate and regular rhythm Vessels: normal peripheral pulses Extremities: + edema (Trace edema BLE) Gastrointestinal (Abdomen): normal bowel sounds, soft, nontender, no hepatosplenomegaly Coffee-ground emesis noted Musculoskeletal: no cyanosis or clubbing, extremities motor strength 5/5 Skin: no rashes, warm and dry Neurologic: PERRL, EOMI, accommodation nl, no face palsy, no dysarthria Psychiatric: Orientation: alert and oriented x 3 Affect: + flat affect Thought Content: + paranoid Results & Data Results & Data ([facility]) Vital Signs (Past 12 Hours) Vital Signs Temp Pulse Pulse Resp BP BP Pulse Ox 12/17/20 15:38 37.0 C 96 H 18 173/98 H 98 12/17/20 14:00 95 H 16 184/101 H 96 12/17/20 12:04 92 H 20 217/115 H 95 12/17/20 10:31 36.7 C 92 H 20 159/80 H 96 Laboratory Results Short CBC 12/17/20 Range/Units 12:55 WBC 10.91 H (4.8-10.8) K/uL Hgb 15.8 (14.0-18.0) g/dL Hct 46.0 (42-52) % Plt Count 282 (130-400) K/uL BMP 12/17/20 12:12 Sodium 132 L Potassium 4.3 Chloride 99 Carbon Dioxide 25 BUN 9 Creatinine 1.29 Glucose 293 H Calcium 11.0 H Cardiac Enzymes 12/17/20 Range/Units 12:12 Total Creatine Kinase 96 (39-308) U/L Troponin I 1.100 H* (0-0.045) ng/ml Liver Function 12/17/20 Range/Units 12:12 Total Bilirubin 0.6 (0.2-1) mg/dl AST 19 (15-37) U/L ALT 17 (12-78) U/L Alkaline Phosphatase 99 (45-117) U/L Albumin 3.6 (3.4-5.0) gm/dl Diagnostic Findings Abdomen/Pelvis CT 12/17/20 11:54 CT abd pelvis IV con only CLINICAL HISTORY: back pain, emesis TECHNIQUE: Helical axial images of the abdomen and pelvis were obtained and displayed. Automated dose lowering techniques and/or adjustment according to patient size were utilized for this exam. This exam was performed with intravenous contrast. COMPARISON: None available at the time of this dictation. FINDINGS: Lower chest: For findings above the diaphragm, please see CT chest performed same day. Liver: Unremarkable. No focal lesions are seen. Gallbladder and biliary tree: No calcified gallstones. Normal caliber wall. No intra- or extrahepatic biliary ductal dilation. Pancreas: Fatty replacement of the pancreas is seen. Spleen: Unremarkable. Adrenals: Unremarkable. Kidneys and ureters: Unremarkable. Bladder: Unremarkable. Reproductive organs: Prostatomegaly is seen. Bowel: Unremarkable appearance of the bowel. The appendix is normal. A moderate hiatal hernia is seen. Mild smooth wall thickening is seen in the pylorus. Lymph nodes Retroperitoneal: Subcentimeter lewis hepatis nodes are noted. Mesenteric: Unremarkable. Pelvic: Unremarkable. Peritoneum: Normal Vessels: Extensive calcified and noncalcified atherosclerotic disease is seen in the aorta. Origin of the great vessels appears patent in this nonangiographic phase study. Abdominal wall: Bilateral fat-containing inguinal hernias are seen. Bones: Degenerative changes in the visualized spine. IMPRESSION: Moderate hiatal hernia. Questionable smooth wall thickening of the pylorus may represent inflammatory process. No evidence of other acute abnormality and in particular no evidence of bowel obstruction. ACT 112: Negative or not required by law. Electronically signed by: Adonis Bearden M.D. 12/17/2020 1:43 PM Chest CTA 12/17/20 13:01 CT angio chest PE protocol CLINICAL HISTORY: emesis, troponin elevation, dyspnea TECHNIQUE: Multidetector row helical CT of the chest was performed. Coronal and sagittal reformations were obtained. Automated dose lowering techniques and/or adjustment according to patient size were utilized for this exam. Comparison: None available at the time of this dictation. FINDINGS: Lungs and pleura: Pleural based linear and nodular opacities in the right lung base are seen. There is a left upper lobe pulmonary nodule measuring 7 mm in diameter. Heart and pericardium: There is cardiomegaly without evidence of pericardial effusion. Vessels: No evidence of pulmonary embolism. Mediastinum and roly: Unremarkable. Chest wall and lower neck: Unremarkable. Abdomen: For findings below the diaphragm, please refer to CT of the abdomen dated the same. Bones: Degenerative changes in the thoracic spine. IMPRESSION: 1. No evidence of pulmonary embolism. 2. Right lower lung reticulonodular opacities may represent pleural-based scarring, airspace disease, or underlying nodule. Follow-up to resolution is recommended. 3. 7 mm pulmonary nodule in the left upper lobe. According to Fleischner criteria, CT chest should be performed at 6-12 months. In high-risk patients, a 18-24 month follow-up is recommended, in low-risk patients, this 18-24 month follow-up CT is optional. ACT 112: Negative or not required by law. Electronically signed by: Adonis Bearden M.D. 12/17/2020 1:37 PM Code Status & VTE Plan Code Status Patient is a full code as per my discussion with him. VTE Prophylaxis Plan VTE Prophylaxis will be ordered: Yes Supervising Physician Co-Signing Physician Notes Pt seen and examined by me, care coordinated w/ L. Martha HO, pls refer to my note above for further detail. 70-year-old male w/ hx of DM type II, chronic diastolic CHF, CAD, history of CVA, chronic back pain, paranoid personality disorder,who presents for evaluation of back pain and vomiting/ hematemesis. Patient recently admitted to [facility] 11/13-11/14 for hematemesis. Patient declined EGD there.Patient denies abdominal pain. No chest pain or shortness of breath. In the ED, Hgb is stable at 15.8.CT ABD/pelvis shows signs of moderate hiatal hernia, no other acute findings noted. Initial troponin 1.1, EKG appears nonischemic. Patient was given IV morphine, IV Zofran, Protonix bolus and started on a drip. Pt is currently laying in bed, in no acute distress, he is awake alert oriented able to answer questions appropriately however he is wary about different tests. Worried about anesthesia and EGD. Also to auscultation bilaterally without any wheezing rhonchi or crackles. Heart sounds regular. Abdomen soft doesn't seem to be tender to palpation, positive bowel sounds. Patient moves extremities spontaneously. Skin is warm dry, there is some minimal lower extremity edema noted. Patient started on IV PPI, monitor H&H, closely monitor hemodynamics. GI consulted. Admitted to telemetry, given elevated troponin, likely demand ischemia, patient denies having any chest pain. Cardiology also contacted. Gregory Estrada MD
--- NOTE | 2020-12-17 17:03 | Cardiology Consultation ---
Date of Consultation December 17, 2020 Assessment & Plan (1) Elevated troponin: (2) UGIB (upper gastrointestinal bleed): (3) CAD (coronary artery disease): (4) Hypertensive urgency: 70-year-old patient present to the emergency department with severe low back pain, nausea, vomiting, and coffee-ground emesis. Troponin elevated secondary to demand ischemia in the setting of acute pain, hypertensive urgency with underlying multivessel coronary disease. Plaque rupture event less likely given presentation. ECG demonstrating left ventricular hypertrophy with repolarization abnormality, poor R wave progression. Unchanged when directly compared to ECG dated 12/17/2020. He is currently chest pain free. History of multivessel coronary disease diagnosed in 2016 with patient declining surgical revascularization at that time. Ejection fractions reported as low as 35% in the past, however, left ventricular ejection fraction normal per most recent echocardiogram. He appears compensated to mildly hypovolemic currently. No indication for intravenous Lasix. Recommend discontinuation of isosorbide with addition of topical nitrates to improve blood pressure control. Anticoagulation antiplatelet therapy will remain on hold currently. Serial H&H ordered per the primary service. Trend cardiac enzymes x3 sets. Repeat echocardiogram in a.m. Thank you for allow me to participate in the care of your patient. History of Present Illness Reason for Consultation: Elevated troponin Requesting Physician: Dr. Estrada Attending Physician: Chema Estrada MD History of Present Illness 70-year-old patient presented emergency department with back pain. While in the ER he also complained of severe nausea and vomiting. Reports hematemesis at home. Coffee-ground emesis reported in the ER. He was evaluated by gastroenterology who is considering EGD on Sunday. Denies any chest pain or shortness of breath. Troponin elevated on admission. ECG is abnormal, however, unchanged when directly compared to ECG from prior hospitalization in [place] is 11/15/2020. Carries a history of multivessel coronary disease diagnosed via cardiac catheterization in 2016. Coronary artery bypass grafting was recommended, however, declined by the patient. He has been managed medically since that time. Most recent echocardiogram performed per review of medical records on 11/15/2020 demonstrates preserved LV systolic function with mild aortic valve stenosis. Currently patient is resting comfortably. Lying supine without shortness of breath. Denies orthopnea or PND. No palpitations, lightheadedness, dizziness, syncope, or near syncope. Continues to feel nauseat ed. Denies hematochezia, melena, or diarrhea. Blood pressure is elevated. No longer taking Plavix which was discontinued during his most recent hospitalization due to coffee-ground emesis. He has continued aspirin in addition to other medical therapies noted below. Back pain improved with intravenous morphine. Home Medications Medication Instructions Recorded Confirmed Type aspirin 81 mg tablet,delayed 81 mg PO QAM 12/17/20 12/17/20 History release carvedilol 3.125 mg tablet 3.125 mg PO HS 12/17/20 12/17/20 History furosemide 40 mg tablet 40 mg PO BIDM 12/17/20 12/17/20 History insulin detemir U-100 100 unit/mL 20 unit SUBCUT BID 12/17/20 12/17/20 History (3 mL) subcutaneous pen (Levemir FlexTouch U-100 Insulin) isosorbide mononitrate 30 mg 30 mg PO DAILY 12/17/20 12/17/20 History tablet,extended release 24 hr pantoprazole 40 mg tablet,delayed 40 mg PO QAM 12/17/20 12/17/20 History release spironolactone 25 mg tablet 25 mg PO QAM 12/17/20 12/17/20 History trazodone 50 mg tablet 50 mg PO BID 12/17/20 12/17/20 History Patient History Medical History CAD (coronary artery disease) chart history of Chronic diastolic CHF (congestive heart failure) DM type 2 (diabetes mellitus, type 2) History of GI bleed History of hypertension Paranoid personality (disorder) Surgical History Hx of tonsillectomy Social History Smoking Status: Never smoker Feels Safe at Home: Yes Review of Systems Review of Systems: Unobtainable due to cognitive status Physical Exam Constitutional: + disheveled and cooperative; no acute distress Respiratory: no respiratory distress and no labored breathing Auscultation: no crackles, no rales, no rhonchi and no wheezes Cardiovascular: Rate/Rhythm: regular rate and regular rhythm Heart Sounds: normal S1, normal S2 and + murmur (2/6 systolic ejection murmur) Gastrointestinal (Abdomen): Inspection/Auscultation: abdomen normal to inspection and normal bowel sounds; abdomen not distended Percussion/Palpation: + abdomen tender and abdomen soft; no guarding and abdomen not rigid Neurologic: CN's II-XI intact bilaterally and moves all extremities; no focal motor deficits Motor/Sensory: no tremor Results & Data ([facility]) Vital Signs (Past 12 Hours) Vital Signs Temp Pulse Pulse Resp BP BP Pulse Ox 12/17/20 15:38 37.0 C 96 H 18 173/98 H 98 12/17/20 14:00 95 H 16 184/101 H 96 12/17/20 12:04 92 H 20 217/115 H 95 12/17/20 10:31 36.7 C 92 H 20 159/80 H 96
[2020-12-17] MEDS ORDERED: NITROGLYCERIN 2% OINTMENT 30GM TUBE ONE (17:16)
[2020-12-17] MEDS: SODIUM CHLORIDE 0.9% 1000ML 1,000 ML IV SCH (17:48)
[2020-12-17] MEDS: NITROGLYCERIN 2% OINTMENT 30GM TUBE EXT SCH (17:48)
[2020-12-17] MEDS ORDERED: INSULIN DETEMIR FLEXPEN/FLEX TOUCH 100 UNITS/ML 3ML SC STA (17:50)
[2020-12-17] MEDS ORDERED: INSULIN ASPART 100 UNITS/ML 3 ML PEN SC STA (17:51)
[2020-12-17] MEDS ORDERED: INSULIN HUMAN REGULAR PER UNIT 5 UNITS in SYRINGE 4.95 ML IV STA (18:05)
--- NOTE | 2020-12-17 19:22 | Pharmacy Report ---
Pharmacy Glycemic Short Note 2 - Date of Service December 17, 2020 - Glycemic Short BSG Results (Last 24 hours): 12/17/20 12/17/20 12:12 17:43 Glucose 293 H POC Glucose 328 H* OUTPATIENT ANTIDIABETIC REGIMEN: * Levemir 20 units SC BID * HbA1c ordered ASSESSMENT: * TK is a 70 year old male admitted with upper GI bleed and hypertensive urgency * BSG on presentation is 293 mg/dL, recheck this evening of 328 mg/dL * Ordered IV insulin bolus at time of consult and will give reduced daily dose of Levemir x 1 in light of NPO status * Receiving Protonix gtt (mixed in dextrose) PLAN FOR INPATIENT GLYCEMIC CONTROL: * Basal insulin * Levemir 25 units SC x 1 * Bolus insulin * NovoLog per scale ACHS or Q6hrs while NPO * Goal Range: Low 110 mg/dL - High 140 mg/dL * Correction Factor: 30 mg/dL/unit * Nutritional / Prandial insulin per carb ratio of 1 unit per 10 grams CHO consumed PLAN FOR DISCHARGE: * tbd - awaiting HbA1c
[2020-12-17 19:39] LABS: Hematocrit (blood only) 43.2 % (42-52); Hemoglobin 14.4 g/dL (14.0-18.0)
[2020-12-17 20:05] LABS: Potassium 4.1 mmol/L (3.5-5.1)
[2020-12-17 20:43] LABS: Troponin I 1.42 ng/ml (0-0.045)
[2020-12-17] MEDS ORDERED: INSULIN ASPART 100 UNITS/ML 3 ML PEN SC SCH (21:00)
[2020-12-17] MEDS: carvediloL 3.125 MG TAB PO SCH (21:20)
[2020-12-17] MEDS: traZODone HCL 50 MG TAB PO SCH (21:20)
[2020-12-18] MEDS: INSULIN ASPART 100 UNITS/ML 3 ML PEN SC SCH ×4 (00:27→18:11)
[2020-12-18] MEDS: NITROGLYCERIN 2% OINTMENT 30GM TUBE EXT SCH ×4 (00:55→18:11)
[2020-12-18] MEDS: PANTOprazole 40 MG in DEXTROSE 5% 100 ML IV SCH ×5 (00:56→21:03)
[2020-12-18] MEDS: SODIUM CHLORIDE 0.9% 1000ML 1,000 ML IV SCH ×3 (03:17→18:07)
[2020-12-18] MEDS: ACETAMINOPHEN 325 MG TAB PO PRN ×2 (08:45→17:50)
[2020-12-18] MEDS: traZODone HCL 50 MG TAB PO SCH ×2 (08:45→21:07)
[2020-12-18] MEDS: INSULIN DETEMIR FLEXPEN/FLEX TOUCH 100 UNITS/ML 3ML SC SCH ×2 (08:50→21:04)
[2020-12-18] MEDS ORDERED: PANTOprazole 40 MG TAB PO SCH (09:00)
[2020-12-18] MEDS ORDERED: ISOSORBIDE MONO EXTENDED REL 30 MG TABCR PO SCH (09:00)
[2020-12-18 10:02] LABS: Hematocrit (blood only) 39.4 % (42-52); Mean Corpuscular Hemoglobin 30.5 pg (25-34); Mean Corpuscular Volume 92.5 fL (80-100); Platelet Count 285 K/uL (130-400); RDW Coefficient of Variation 14.1 % (11.5-14.5); RDW Standard Deviation 47.8 fL (36.4-46.3); Red Blood Count 4.26 M/uL (4.7-6.1); White Blood Count 13.31 K/uL (4.8-10.8)
[2020-12-18 10:24] LABS: BUN Creatinine Ratio 7.3 (10-20); Calcium 8.8 mg/dl (8.5-10.1); Creatinine Clr Calc Pharmacy 34.3 ml/min; Est GFR (African American) 34.3 ml/min; Est GFR (Non-African American) 29.6 ml/min; Potassium 4.3 mmol/L (3.5-5.1); Troponin I 0.641 ng/ml (0-0.045)
--- NOTE | 2020-12-18 10:42 | Pharmacy Report ---
Pharmacy Glycemic Short Note 2 - Date of Service December 18, 2020 - Glycemic Short BSG Results (Last 24 hours): 12/17/20 12/17/20 12/17/20 12:12 17:43 20:12 Glucose 293 H POC Glucose 328 H* 207 H 12/17/20 12/18/20 12/18/20 23:38 05:47 09:33 Glucose 142 H POC Glucose 169 H 165 H OUTPATIENT ANTIDIABETIC REGIMEN: * Levemir 20 units SC BID * HbA1c ordered ASSESSMENT: * Pt remains NPO * BSGs trended down nicely with Levemir 25 units SQ last evening. * Outpatient dosing is Levemir 20 units SQ BID - will reduce to 12 units SQ BID for NPO status and continue to titrate based on BSG trends. 12/17/20 * TK is a 70 year old male admitted with upper GI bleed and hypertensive urgency * BSG on presentation is 293 mg/dL, recheck this evening of 328 mg/dL * Ordered IV insulin bolus at time of consult and will give reduced daily dose of Levemir x 1 in light of NPO status * Receiving Protonix gtt (mixed in dextrose) PLAN FOR INPATIENT GLYCEMIC CONTROL: * Basal insulin * Levemir 12 units SC BID * Bolus insulin * NovoLog per scale ACHS or Q6hrs while NPO * Goal Range: Low 110 mg/dL - High 140 mg/dL * Correction Factor: 30 mg/dL/unit * Nutritional / Prandial insulin per carb ratio of 1 unit per 10 grams CHO consumed PLAN FOR DISCHARGE: * tbd - awaiting HbA1c, pending for 12/18/20
[2020-12-18] MEDS: ALUMINUM/MAGNESIUM SUSP 30 ML UDC PO PRN ×2 (11:05→17:49)
--- NOTE | 2020-12-18 11:36 | Cardiology Progress Note ---
Date of Service December 18, 2020 Assessment & Plan (1) Elevated troponin: (2) UGIB (upper gastrointestinal bleed): (3) CAD (coronary artery disease): (4) Hypertensive urgency: Plan: 70-year-old patient present to the emergency department with severe low back pain, nausea, vomiting, and coffee-ground emesis. Troponin elevated secondary to demand ischemia in the setting of acute pain, hypertensive urgency with underlying multivessel coronary disease. Plaque rupture event less likely given presentation. ECG demonstrating left ventricular hypertrophy with repolarization abnormality, poor R wave progression. Unchanged when directly compared to ECG dated 12/17/2020. He is currently chest pain free. History of multivessel coronary disease diagnosed in 2015 and 2019with patient declining surgical revascularization. Outpatient records were reviewed. Patient presents for second episode of back pain with hematemesis with hospitalization at [facility] on 11/14/2020. We will repeat echocardiogram today. EKG without acute changes but troponins elevated secondary to demand issues. Patient warrants GI evaluation to assess symptoms and allow ongoing cardiac care. Patient once again emphasized that he would not consider cardiovascular surgical revascularization. Admission and Anticipated Discharge Date Admission Date: December 17, 2020 Subjective Patient was seen and examined, chart, medications, telemetry reviewed. No chest pains or discomfort. No further hematemesis. Blood pressures improved since hospitalization. No fevers chills or unexplained infections. EKG without evolution or acute abnormality. Echocardiogram pending Review of Systems Review of Systems: All systems reviewed & are unremarkable except as noted in Subjective Physical Exam Constitutional: + disheveled and cooperative; no acute distress ENMT: external ear and nose normal, oropharynx normal Respiratory: no respiratory distress and no labored breathing Auscultation: no crackles, no rales, no rhonchi and no wheezes Cardiovascular: Rate/Rhythm: regular rate and regular rhythm Heart Sounds: normal S1, normal S2 and + murmur (2/6 systolic ejection murmur) Gastrointestinal (Abdomen): Inspection/Auscultation: abdomen normal to inspection and normal bowel sounds; abdomen not distended Percussion/Palpation: + abdomen tender and abdomen soft; no guarding and abdomen not rigid Neurologic: CN's II-XI intact bilaterally and moves all extremities; no focal motor deficits Motor/Sensory: no tremor Psychiatric: Orientation: oriented x 3 and + guarded Results & Data ([place]) Vital Signs (Past 12 Hours) Vital Signs Temp Pulse Resp BP BP Pulse Ox 12/18/20 08:02 36.5 C 72 16 110/60 95 12/18/20 04:00 36.7 C 73 16 92/54 L 96 Laboratory Results Laboratory Results - last 24 hr 12/17/20 12/17/20 12/17/20 12:11 12:12 12:12 WBC RBC Hgb Hct MCV MCH MCHC RDW Std Deviation RDW Coeff of Pham Plt Count MPV Immature Gran % (Auto) Neut % (Auto) Lymph % (Auto) [place] % (Auto) Eos % (Auto) Baso % (Auto) Neut # (Auto) Lymph # (Auto) [place] # (Auto) Eos # (Auto) Baso # (Auto) Immature Gran # (Auto) PT 10.1 INR 1.0 APTT 26.4 PTT Ratio 1.0 Sodium Potassium Chloride Carbon Dioxide Anion Gap BUN Creatinine Est Cr Clr Drug Dosing Est GFR ( Amer) Est GFR (Non-Af Amer) BUN/Creatinine Ratio Glucose POC Glucose Estimat Average Glucose Hemoglobin A1c Lactate Calcium Magnesium Total Bilirubin AST ALT Alkaline Phosphatase Total Creatine Kinase Troponin I Total Protein Albumin Globulin Albumin/Globulin Ratio Lipase Procalcitonin TSH Gastric Fluid pH 1 Gastric Occult Blood Positive A COVID-19 Eval Order SARS-CoV-2 (PCR) Blood Type AB Positive Antibody Screen NEGATIVE Crossmatch See Detail 12/17/20 12/17/20 12/17/20 12:12 12:50 12:50 WBC RBC Hgb Hct MCV MCH MCHC RDW Std Deviation RDW Coeff of Pham Plt Count MPV Immature Gran % (Auto) Neut % (Auto) Lymph % (Auto) [place] % (Auto) Eos % (Auto) Baso % (Auto) Neut # (Auto) Lymph # (Auto) [place] # (Auto) Eos # (Auto) Baso # (Auto) Immature Gran # (Auto) PT INR APTT PTT Ratio Sodium 132 L Potassium 4.3 Chloride 99 Carbon Dioxide 25 Anion Gap 8.0 BUN 9 Creatinine 1.29 Est Cr Clr Drug Dosing Not Reportable Est GFR ( Amer) 65.1 Est GFR (Non-Af Amer) 56.2 BUN/Creatinine Ratio 7.3 L Glucose 293 H POC Glucose Estimat Average Glucose Hemoglobin A1c Lactate Calcium 11.0 H Magnesium 2.3 Total Bilirubin 0.6 AST 19 ALT 17 Alkaline Phosphatase 99 Total Creatine Kinase 96 Troponin I 1.100 H* Total Protein 8.6 H Albumin 3.6 Globulin 5.0 H Albumin/Globulin Ratio 0.7 L Lipase 124 Procalcitonin TSH 1.740 Gastric Fluid pH Gastric Occult Blood COVID-19 Eval Order Covid19 at [facility] SARS-CoV-2 (PCR) NEGATIVE Blood Type Antibody Screen Crossmatch 12/17/20 12/17/20 12/17/20 12:55 12:55 12:55 WBC 10.91 H RBC 5.06 Hgb 15.8 Hct 46.0 MCV 90.9 MCH 31.2 MCHC 34.3 RDW Std Deviation 45.2 RDW Coeff of Pham 13.7 Plt Count 282 MPV 10.6 H Immature Gran % (Auto) 0.2 Neut % (Auto) 83.8 Lymph % (Auto) 11.7 [place] % (Auto) 4.0 Eos % (Auto) 0.1 Baso % (Auto) 0.2 Neut # (Auto) 9.14 H Lymph # (Auto) 1.28 [place] # (Auto) 0.44 Eos # (Auto) 0.01 Baso # (Auto) 0.02 Immature Gran # (Auto) 0.02 PT INR APTT PTT Ratio Sodium Potassium Chloride Carbon Dioxide Anion Gap BUN Creatinine Est Cr Clr Drug Dosing Est GFR ( Amer) Est GFR (Non-Af Amer) BUN/Creatinine Ratio Glucose POC Glucose Estimat Average Glucose Hemoglobin A1c Lactate Cancelled Calcium Magnesium Total Bilirubin AST ALT Alkaline Phosphatase Total Creatine Kinase Troponin I Total Protein Albumin Globulin Albumin/Globulin Ratio Lipase Procalcitonin < 0.05 TSH Gastric Fluid pH Gastric Occult Blood COVID-19 Eval Order SARS-CoV-2 (PCR) Blood Type Antibody Screen Crossmatch 12/17/20 12/17/20 12/17/20 14:30 16:32 17:43 WBC RBC Hgb Hct MCV MCH MCHC RDW Std Deviation RDW Coeff of Pham Plt Count MPV Immature Gran % (Auto) Neut % (Auto) Lymph % (Auto) [place] % (Auto) Eos % (Auto) Baso % (Auto) Neut # (Auto) Lymph # (Auto) [place] # (Auto) Eos # (Auto) Baso # (Auto) Immature Gran # (Auto) PT INR APTT PTT Ratio Sodium Potassium Chloride Carbon Dioxide Anion Gap BUN Creatinine Est Cr Clr Drug Dosing Est GFR ( Amer) Est GFR (Non-Af Amer) BUN/Creatinine Ratio Glucose POC Glucose 328 H* Estimat Average Glucose Hemoglobin A1c Lactate 2.1 H* 1.8 Calcium Magnesium Total Bilirubin AST ALT Alkaline Phosphatase Total Creatine Kinase Troponin I Total Protein Albumin Globulin Albumin/Globulin Ratio Lipase Procalcitonin TSH Gastric Fluid pH Gastric Occult Blood COVID-19 Eval Order SARS-CoV-2 (PCR) Blood Type Antibody Screen Crossmatch 12/17/20 12/17/20 12/17/20 19:06 19:33 19:33 WBC RBC Hgb 14.4 Hct 43.2 MCV MCH MCHC RDW Std Deviation RDW Coeff of Pham Plt Count MPV Immature Gran % (Auto) Neut % (Auto) Lymph % (Auto) [place] % (Auto) Eos % (Auto) Baso % (Auto) Neut # (Auto) Lymph # (Auto) [place] # (Auto) Eos # (Auto) Baso # (Auto) Immature Gran # (Auto) PT INR APTT PTT Ratio Sodium Potassium 4.1 Chloride Carbon Dioxide Anion Gap BUN Creatinine Est Cr Clr Drug Dosing Est GFR ( Amer) Est GFR (Non-Af Amer) BUN/Creatinine Ratio Glucose POC Glucose Estimat Average Glucose Hemoglobin A1c Lactate 2.8 H* Calcium Magnesium Total Bilirubin AST ALT Alkaline Phosphatase Total Creatine Kinase Troponin I 1.420 H* Total Protein Albumin Globulin Albumin/Globulin Ratio Lipase Procalcitonin TSH Gastric Fluid pH Gastric Occult Blood COVID-19 Eval Order SARS-CoV-2 (PCR) Blood Type Antibody Screen Crossmatch 12/17/20 12/17/20 12/18/20 20:12 23:38 05:47 WBC RBC Hgb Hct MCV MCH MCHC RDW Std Deviation RDW Coeff of Pham Plt Count MPV Immature Gran % (Auto) Neut % (Auto) Lymph % (Auto) [place] % (Auto) Eos % (Auto) Baso % (Auto) Neut # (Auto) Lymph # (Auto) [place] # (Auto) Eos # (Auto) Baso # (Auto) Immature Gran # (Auto) PT INR APTT PTT Ratio Sodium Potassium Chloride Carbon Dioxide Anion Gap BUN Creatinine Est Cr Clr Drug Dosing Est GFR ( Amer) Est GFR (Non-Af Amer) BUN/Creatinine Ratio Glucose POC Glucose 207 H 169 H 165 H Estimat Average Glucose Hemoglobin A1c Lactate Calcium Magnesium Total Bilirubin AST ALT Alkaline Phosphatase Total Creatine Kinase Troponin I Total Protein Albumin Globulin Albumin/Globulin Ratio Lipase Procalcitonin TSH Gastric Fluid pH Gastric Occult Blood COVID-19 Eval Order SARS-CoV-2 (PCR) Blood Type Antibody Screen Crossmatch 12/18/20 12/18/20 12/18/20 09:33 09:33 09:33 WBC 13.31 H RBC 4.26 L Hgb 13.0 L Hct 39.4 L MCV 92.5 MCH 30.5 MCHC 33.0 RDW Std Deviation 47.8 H RDW Coeff of Pham 14.1 Plt Count 285 MPV 10.0 Immature Gran % (Auto) Neut % (Auto) Lymph % (Auto) [place] % (Auto) Eos % (Auto) Baso % (Auto) Neut # (Auto) Lymph # (Auto) [place] # (Auto) Eos # (Auto) Baso # (Auto) Immature Gran # (Auto) PT INR APTT PTT Ratio Sodium 137 Potassium 4.3 Chloride 105 Carbon Dioxide 28 Anion Gap 4.0 BUN 16 D Creatinine 2.19 H D Est Cr Clr Drug Dosing 34.3 Est GFR ( Amer) 34.3 Est GFR (Non-Af Amer) 29.6 BUN/Creatinine Ratio 7.3 L Glucose 142 H POC Glucose Estimat Average Glucose Pending Hemoglobin A1c Pending Lactate Calcium 8.8 D Magnesium Total Bilirubin AST ALT Alkaline Phosphatase Total Creatine Kinase Troponin I 0.641 H* Total Protein Albumin Globulin Albumin/Globulin Ratio Lipase Procalcitonin TSH Gastric Fluid pH Gastric Occult Blood COVID-19 Eval Order SARS-CoV-2 (PCR) Blood Type Antibody Screen Crossmatch 12/18/20 11:22 WBC RBC Hgb Hct MCV MCH MCHC RDW Std Deviation RDW Coeff of Pham Plt Count MPV Immature Gran % (Auto) Neut % (Auto) Lymph % (Auto) [place] % (Auto) Eos % (Auto) Baso % (Auto) Neut # (Auto) Lymph # (Auto) [place] # (Auto) Eos # (Auto) Baso # (Auto) Immature Gran # (Auto) PT INR APTT PTT Ratio Sodium Potassium Chloride Carbon Dioxide Anion Gap BUN Creatinine Est Cr Clr Drug Dosing Est GFR ( Amer) Est GFR (Non-Af Amer) BUN/Creatinine Ratio Glucose POC Glucose 132 H Estimat Average Glucose Hemoglobin A1c Lactate Calcium Magnesium Total Bilirubin AST ALT Alkaline Phosphatase Total Creatine Kinase Troponin I Total Protein Albumin Globulin Albumin/Globulin Ratio Lipase Procalcitonin TSH Gastric Fluid pH Gastric Occult Blood COVID-19 Eval Order SARS-CoV-2 (PCR) Blood Type Antibody Screen Crossmatch
[2020-12-18 12:44] LABS: Estimated Average Glucose 301 mg/dl; Hemoglobin A1C 12.1 % (4.5-5.6)
[2020-12-18 14:49] LABS: Appearance Urine Clear (Clear); Bacteria Urine Automated Negative (Negative); Bilirubin Urine Negative (Negative); Blood Urine 1+ (Negative); Color Urine Dark Yellow; Epithelial Cell Urine Auto >30 /lpf (0-5); Glucose Urine UA 3+ (Negative); Ketones Urine Trace (Negative); Leukocyte Esterase Urine Negative (Negative); Nitrite Urine Negative (Negative); Protein Urine 4+ (Negative); Specific Gravity Urine > 1.045 (1.000-1.030); Urobilinogen Urine Negative (Negative)
[2020-12-18 14:59] LABS: RBC Urine Automated 0-4 /hpf (0-4)
--- NOTE | 2020-12-18 15:43 | Hospitalist Progress Note ---
Date of Service December 18, 2020 Assessment & Plan (1) UGIB (upper gastrointestinal bleed): Plan: -Patient presenting from home with reports of worsening chronic back pain and coffee-ground emesis. Patient recently admitted to [facility] 11/13- 11/14 for hematemesis. Patient was treated with an NG tube and had improvement in symptoms. Patient declined EGD. FOBT was negative. Hgb 13.7. -In the ED, patient is hemodynamically stable with actually hypertension. Hgb is 15.8 -CT ABD/pelvis unremarkable for acute findings -Emesis tested occult blood positive -S/p Protonix bolus and drip in the ED, continue with IV PPI drip -Patient expresses concern over sedation for EGD procedure, will have anesthesia evaluate the patient -Appreciate GI input and recommendation of EGD on Sunday -Denies any significant abdominal discomfort and/or nausea vomiting -Hemoglobin is minimally low at 13.0 from 15.8 (2) Elevated troponin: Plan: Initial troponin was 1.1 which subsequently trended down to 0.641 Has history of CAD with known EF of 35% and an echo recently Appreciate cardiology input and recommendation Awaiting repeat echo (3) CAD (coronary artery disease): (4) Hypertensive urgency: Plan: -Initial troponin 1.1, EKG nonischemic appearing -Cardiac cath in 2019 demonstrated multivessel CAD however patient declined CABG -No reports of chest pain -Elevated troponin likely due to demand ischemia from acute GI bleeding and hypertensive urgency -Trend troponin as above -Cardiology consult, input appreciated - Recommend discontinuation of isosorbide with addition of topical nitrates to improve blood pressure control -Continue beta-luisa, hold ASA in the setting of acute upper GI bleeding -Remains free of cardiac pain but the patient is refusing any kind of cardiac work-up (5) DM type 2 (diabetes mellitus, type 2): Plan: -Unknown HgbA1c, check with a.m. labs -On Levemir at home -Glycemic pharmacy consult (6) Chronic diastolic CHF (congestive heart failure): Plan: -EF reported as low as 35% in the past, however normal per most recent echocardiogram -Appears euvolemic, hold home diuretics for now in the setting of acute upper GI bleeding -Monitor volume status closely (7) Paranoid personality (disorder): Plan: -Currently not on any psychiatric medications -During exam, patient appears to be very paranoid and distrustful of medical procedures and medications. (8) History of CVA (cerebrovascular accident): Plan: -Holding ASA due to acute upper GI bleeding (9) Chronic back pain: Plan: -Typically controlled with Tylenol, patient reports he initially presented with acute worsening of his chronic back pain however states that it is currently at baseline -Lidocaine patch was given to control back pain (10) DVT prophylaxis: Plan: -SCDs due to GI bleeding Admission and Anticipated Discharge Date Admission Date: December 17, 2020 Subjective 12/18/2020 The patient was seen and examined in telemetry unit He refused to have any cardiac work-up including echocardiogram He has been agreeable to have blood test Complains today of some pain at the back but denies any other significant symptoms Review of Systems Review of Systems: All systems reviewed and are unremarkable except as noted below Gastrointestinal: No abdominal discomfort Musculoskeletal: Back pain Physical Exam Physical Exam: Lying in bed comfortably Constitutional: well developed, well nourished, + ill appearing and + obese Eyes: PERRL, conjunctivae normal, anicteric sclerae ENMT: external ear and nose normal, oropharynx normal Neck: trachea midline, no thyromegaly Respiratory: no respiratory distress and no cough Auscultation: lungs clear to auscultation bilaterally Cardiovascular: Rate/Rhythm: regular rate and regular rhythm; not tachycardic Heart Sounds: normal S1, normal S2 and + murmur (2/6 ESM over precordium) Extremities: + edema (No edema) Gastrointestinal (Abdomen): Inspection/Auscultation: normal bowel sounds; abdomen not distended Percussion/Palpation: + abdomen tender (Minimally tender in the epigastrium) and abdomen soft Musculoskeletal: No acute arthritis in any joint Neurologic: Alert, awake and oriented x3 Results & Data Results & Data ([facility]) Vital Signs (Past 12 Hours) Vital Signs Temp Pulse Pulse Resp BP BP Pulse Ox 12/18/20 11:30 36.7 C 73 16 158/77 H 94 12/18/20 08:02 36.5 C 72 16 110/60 95 12/18/20 08:00 66 12/18/20 04:00 36.7 C 73 16 92/54 L 96 Laboratory Results Short CBC 12/17/20 12/18/20 Range/Units 19:33 09:33 WBC 13.31 H (4.8-10.8) K/uL Hgb 14.4 13.0 L (14.0-18.0) g/dL Hct 43.2 39.4 L (42-52) % Plt Count 285 (130-400) K/uL BMP 12/17/20 12/18/20 19:33 09:33 Sodium 137 Potassium 4.1 4.3 Chloride 105 Carbon Dioxide 28 BUN 16 D Creatinine 2.19 H D Glucose 142 H Calcium 8.8 D Cardiac Enzymes 12/17/20 12/18/20 Range/Units 19:33 09:33 Troponin I 1.420 H* 0.641 H* (0-0.045) ng/ml Urine 12/18/20 Range/Units 14:35 Urine Color Dark Yellow Urine Appearance Clear (Clear) Urine pH 5.0 (4.5-7.5) Ur Specific [place] > 1.045 H (1.000-1.030) Urine Protein 4+ H (Negative) Urine Glucose (UA) 3+ H (Negative) Medications Administered Current Inpatient Medications Acetaminophen (Acetaminophen 325 Mg Tab) 650 mg PO Q4H PRN PRN Reason: Pain or Fever Stop: 01/16/21 15:16 Last Admin: 12/18/20 08:45 Dose: 650 mg Documented by: Al Hydrox/Mg Hydrox/Simethicone (Aluminum/Magnesium Susp 30 Ml Udc) 30 ml PO Q6H PRN PRN Reason: Dyspepsia Stop: 01/17/21 10:08 Last Admin: 12/18/20 11:05 Dose: 30 ml Documented by: Carvedilol (Carvedilol 3.125 Mg Tab) 3.125 mg PO HS AMANDO Stop: 01/16/21 20:59 Last Admin: 12/17/20 21:20 Dose: 3.125 mg Documented by: Pantoprazole Sodium 40 mg/ (Dextrose) 100 mls @ 20 mls/hr IV Q5H AMANDO Stop: 01/16/21 13:14 Last Admin: 12/18/20 15:32 Dose: 8 mg/hr, 20 mls/hr Documented by: Sodium Chloride (Nss 1000ml) 1,000 mls @ 125 mls/hr IV .Q8H AMANDO Stop: 01/16/21 15:59 Last Admin: 12/18/20 10:21 Dose: 125 mls/hr Documented by: Insulin Aspart (Insulin Aspart 100 Units/Ml 3 Ml Pen) 0 units SC Q6 [facility] Stop: 01/16/21 20:59 Last Admin: 12/18/20 12:36 Dose: Not Given Documented by: Insulin Detemir (Insulin Detemir Flexpen/Flex Touch 100 Units/Ml 3ml) 12 units SC BID [facility] Stop: 01/17/21 08:59 Last Admin: 12/18/20 08:50 Dose: 12 units Documented by: Lidocaine (Lidocaine 5% 1 Patch) 1 patch TD QAM [facility]ANDO Stop: 01/17/21 14:59 Miscellaneous (Remove Lidoderm Patch) 1 ea N/A DAILY@2100 [facility] Stop: 01/17/21 22:59 Miscellaneous Information (Pharmacy Glycemic Mgmt Consult) 1 ea N/A UD PRN PRN Reason: Consult Stop: 01/16/21 15:48 Nitroglycerin (Nitroglycerin 2% Ointment 30gm Tube) 1 inch EXT Q6 [facility] Stop: 01/16/21 17:59 Last Admin: 12/18/20 12:35 Dose: 1 inch Documented by: Pantoprazole Sodium (Pantoprazole 40 Mg Tab) 40 mg PO QAM [facility] Stop: 01/17/21 08:59 Trazodone HCl (Trazodone Hcl 50 Mg Tab) 50 mg PO BID [facility] Stop: 01/16/21 20:59 Last Admin: 12/18/20 08:45 Dose: 50 mg Documented by:
[2020-12-18] MEDS: LIDOCAINE 5% 1 PATCH TD SCH (16:09)
[2020-12-18] MEDS: carvediloL 3.125 MG TAB PO SCH (21:04)
[2020-12-19] MEDS: INSULIN ASPART 100 UNITS/ML 3 ML PEN SC SCH ×4 (00:03→17:59)
[2020-12-19] MEDS: NITROGLYCERIN 2% OINTMENT 30GM TUBE EXT SCH ×4 (00:06→17:59)
[2020-12-19] MEDS: PANTOprazole 40 MG in DEXTROSE 5% 100 ML IV SCH ×5 (00:08→20:26)
[2020-12-19] MEDS: ACETAMINOPHEN 325 MG TAB PO PRN ×2 (00:16→13:42)
[2020-12-19] MEDS: ALUMINUM/MAGNESIUM SUSP 30 ML UDC PO PRN (01:08)
[2020-12-19] MEDS: SODIUM CHLORIDE 0.9% 1000ML 1,000 ML IV SCH ×3 (01:09→16:43)
--- NOTE | 2020-12-19 07:09 | Electrocardiogram Report ---
Test Reason : Blood Pressure : / mmHG Vent. Rate : 075 BPM Atrial Rate : 075 BPM P-R Int : 270 ms QRS Dur : 086 ms QT Int : 402 ms P-R-T Axes : 038 -41 126 degrees QTc Int : 448 ms Sinus rhythm with 1st degree A-V block Left axis deviation Inferior infarct Anterior infarct T wave abnormality, consider lateral ischemia Abnormal ECG When compared with ECG of 17-DEC-2020 11:35, Premature ventricular complexes are no longer Present Confirmed by Marty Thurston ([id number] on 12/19/2020 7:09:43 AM Referred By: REFERRED SELF Confirmed By:Marty Thurston
[2020-12-19 07:23] LABS: Basophils # (auto) 0.03 K/uL (0-0.2); Basophils % (auto) 0.3 %; Eosinophils % (auto) 1.9 %; Hemoglobin 11.2 g/dL (14.0-18.0); Immature Granulocytes # (auto) 0.01 K/uL (0.00-0.02); Immature Granulocytes % (auto) 0.1 %; Lymphocytes # (auto) 1.98 K/uL (1.2-3.4); Lymphocytes % (auto) 19.2 %; Mean Corpuscular Hemoglobin 29.9 pg (25-34); Mean Corpuscular Volume 93.3 fL (80-100); Mean Platelet Volume 9.7 fL (7.4-10.4); Monocytes # (auto) 0.64 K/uL (0.11-0.59); Monocytes % (auto) 6.2 %; Neutrophils # (auto) 7.46 K/uL (1.4-6.5); Neutrophils % (auto) 72.3 %; Platelet Count 266 K/uL (130-400); RDW Coefficient of Variation 14.1 % (11.5-14.5); RDW Standard Deviation 48.4 fL (36.4-46.3); Red Blood Count 3.75 M/uL (4.7-6.1); White Blood Count 10.32 K/uL (4.8-10.8)
[2020-12-19 07:48] LABS: BUN Creatinine Ratio 8.1 (10-20); Calcium 8.1 mg/dl (8.5-10.1); Est GFR (African American) 35.9 ml/min; Magnesium 2.4 mg/dl (1.8-2.4); Potassium 4.2 mmol/L (3.5-5.1)
--- NOTE | 2020-12-19 07:54 | Hospitalist Progress Note ---
Date of Service December 19, 2020 Assessment & Plan (1) UGIB (upper gastrointestinal bleed): Plan: -Admitted to telemetry -Patient presenting from home with reports of worsening chronic back pain and coffee-ground emesis. Patient recently admitted to [facility] 11/13-11/14 for hematemesis. Patient was treated with an NG tube and had improvement in symptoms. Patient declined EGD. FOBT was negative. Hgb 13.7. -In the ED, patient is hemodynamically stable with actually hypertension. Hgb is 15.8 -CT ABD/pelvis unremarkable for acute findings -Emesis tested occult blood positive -S/p Protonix bolus and drip in the ED, continue with IV PPI drip -Trend H&H -Patient expresses concern over sedation for EGD procedure, will have anesthesia evaluate the patient -GI consult, case discussed with Neha HO - plan for EGD Sunday (12/20) (2) Elevated troponin: (3) CAD (coronary artery disease): (4) Hypertensive urgency: Plan: -Initial troponin 1.1, EKG nonischemic appearing -Cardiac cath in 2019 demonstrated multivessel CAD however patient declined CABG -No reports of chest pain -Elevated troponin likely due to demand ischemia from acute GI bleeding and hypertensive urgency -Trend troponin, resting echo -Cardiology consult, input appreciated Echocardiogram performed on 11/13/2020: (Per report) Mild left ventricular hypertrophy EF 50 to 55%, mild aortic stenosis peak aortic valve velocity 2.3 m/s Currently pt refuses to repeat echo -Continue beta-luisa, hold ASA in the setting of acute upper GI bleeding (5) DM type 2 (diabetes mellitus, type 2): Plan: -HgbA1c 12.1% -On Levemir at home -Glycemic pharmacy consult, peer educator consulted (6) Chronic diastolic CHF (congestive heart failure): Plan: -EF reported as low as 35% in the past, however normal per most recent echocardiogram -Appears euvolemic, hold home diuretics for now in the setting of acute upper GI bleeding -Monitor volume status closely (7) Paranoid personality (disorder): Plan: -Currently not on any psychiatric medications -During exam, patient appears to be paranoid and distrustful of medical procedures and medications. (8) History of CVA (cerebrovascular accident): Plan: -Holding ASA due to acute upper GI bleeding (9) Chronic back pain: Plan: -Typically controlled with Tylenol, add lidocaine patch (10) DVT prophylaxis: Plan: -SCDs due to GI bleeding Admission and Anticipated Discharge Date Admission Date: December 17, 2020 Subjective Patient seen in follow-up of back pain, upper GI bleed, elevated troponin Currently laying in bed, in no distress, however says that he again pulled his back Denies chest pain or shortness of breath No more hematemesis He refused to have any cardiac work-up including echocardiogram Review of Systems Review of Systems: All systems reviewed & are unremarkable except as noted in Subjective Physical Exam Physical Exam: Constitutional:L WD/WN, vitals as a natasha Eyes: PERRL, EOMI, conju nctivae normal, an icteric sclerae ENMT: external ear and n ose normal, oropha rynx normal Respiratory: normal respiratory effort, lungs maria l ar to auscultation Cardiovascular:L Rate/Rhythm: regul ar rate and regula r rhythm Vessels: normal peripheral pulses Extremiti es: + edema (Trace edema BLE) Gastrointestinal ( Abdomen): normal bowel sound s, soft, nontender Musculoskeletal: extremities motor strength 5/5 Skin: no rashes, warm an d dry Neurologic: PERRL, EOMI, no fa ce palsy, no dysar thria, moves extre mities Psychiatric: Orientation: alert and oriented x 3 Affect: + flat af fect Thought Cont ent: + paranoid Results & Data Results & Data ([facility]) Vital Signs (Past 12 Hours) Vital Signs Temp Pulse Resp BP Pulse Ox 12/19/20 03:41 37.2 C 72 18 108/72 96 12/18/20 23:54 36.7 C 74 18 132/68 94 Laboratory Results 12/19/20 12/19/20 12/19/20 Range/Units 06:44 06:44 05:33 WBC 10.32 (4.8-10.8) K/uL RBC 3.75 L (4.7-6.1) M/uL Hgb 11.2 L (14.0-18.0) g/dL Hct 35.0 L (42-52) % MCV 93.3 (80-100) fL MCH 29.9 (25-34) pg MCHC 32.0 (32-36) g/dL RDW Std Deviation 48.4 H (36.4-46.3) fL RDW Coeff of Pham 14.1 (11.5-14.5) % Plt Count 266 (130-400) K/uL MPV 9.7 (7.4-10.4) fL Immature Gran % (Auto) 0.1 % Neut % (Auto) 72.3 % Lymph % (Auto) 19.2 % Sunflower % (Auto) 6.2 % Eos % (Auto) 1.9 % Baso % (Auto) 0.3 % Neut # (Auto) 7.46 H (1.4-6.5) K/uL Lymph # (Auto) 1.98 (1.2-3.4) K/uL Sunflower # (Auto) 0.64 H (0.11-0.59) K/uL Eos # (Auto) 0.20 (0-0.5) K/uL Baso # (Auto) 0.03 (0-0.2) K/uL Immature Gran # (Auto) 0.01 (0.00-0.02) K/uL Sodium 139 (136-145) mmol/L Potassium 4.2 (3.5-5.1) mmol/L Chloride 110 H (98-107) mmol/L Carbon Dioxide 24 (21-32) mmol/L Anion Gap 5.0 (3-11) BUN 17 (7-18) mg/dl Creatinine 2.11 H (0.6-1.4) mg/dl Est Cr Clr Drug Dosing 36.0 ml/min Est GFR ( Amer) 35.9 ml/min Est GFR (Non-Af Amer) 31.0 ml/min BUN/Creatinine Ratio 8.1 L (10-20) Glucose 126 H (70-99) mg/dl POC Glucose 127 H (70-99) mg/dl Estimat Average Glucose mg/dl Hemoglobin A1c (4.5-5.6) % Calcium 8.1 L (8.5-10.1) mg/dl Magnesium 2.4 (1.8-2.4) mg/dl Troponin I (0-0.045) ng/ml Urine Color Urine Appearance (Clear) Urine pH (4.5-7.5) Ur Specific [place] (1.000-1.030) Urine Protein (Negative) Urine Glucose (UA) (Negative) Urine Ketones (Negative) Urine Blood (Negative) Urine Nitrite (Negative) Urine Bilirubin (Negative) Urine Urobilinogen (Negative) Ur Leukocyte Esterase (Negative) Urine WBC (Auto) (0-5) /hpf Urine RBC (Auto) (0-4) /hpf U Hyaline Cast (Auto) (0-5) /lpf U Epithel Cells (Auto) (0-5) /lpf Urine Bacteria (Auto) (Negative) Ur Renal Epithelial Cell 12/19/20 12/18/20 12/18/20 Range/Units 00:02 20:20 18:10 WBC (4.8-10.8) K/uL RBC (4.7-6.1) M/uL Hgb (14.0-18.0) g/dL Hct (42-52) % MCV (80-100) fL MCH (25-34) pg MCHC (32-36) g/dL RDW Std Deviation (36.4-46.3) fL RDW Coeff of Pham (11.5-14.5) % Plt Count (130-400) K/uL MPV (7.4-10.4) fL Immature Gran % (Auto) % Neut % (Auto) % Lymph % (Auto) % [place] % (Auto) % Eos % (Auto) % Baso % (Auto) % Neut # (Auto) (1.4-6.5) K/uL Lymph # (Auto) (1.2-3.4) K/uL Sunflower # (Auto) (0.11-0.59) K/uL Eos # (Auto) (0-0.5) K/uL Baso # (Auto) (0-0.2) K/uL Immature Gran # (Auto) (0.00-0.02) K/uL Sodium (136-145) mmol/L Potassium (3.5-5.1) mmol/L Chloride (98-107) mmol/L Carbon Dioxide (21-32) mmol/L Anion Gap (3-11) BUN (7-18) mg/dl Creatinine (0.6-1.4) mg/dl Est Cr Clr Drug Dosing ml/min Est GFR ( Amer) ml/min Est GFR (Non-Af Amer) ml/min BUN/Creatinine Ratio (10-20) Glucose (70-99) mg/dl POC Glucose 121 H 130 H 132 H (70-99) mg/dl Estimat Average Glucose mg/dl Hemoglobin A1c (4.5-5.6) % Calcium (8.5-10.1) mg/dl Magnesium (1.8-2.4) mg/dl Troponin I (0-0.045) ng/ml Urine Color Urine Appearance (Clear) Urine pH (4.5-7.5) Ur Specific [place] (1.000-1.030) Urine Protein (Negative) Urine Glucose (UA) (Negative) Urine Ketones (Negative) Urine Blood (Negative) Urine Nitrite (Negative) Urine Bilirubin (Negative) Urine Urobilinogen (Negative) Ur Leukocyte Esterase (Negative) Urine WBC (Auto) (0-5) /hpf Urine RBC (Auto) (0-4) /hpf U Hyaline Cast (Auto) (0-5) /lpf U Epithel Cells (Auto) (0-5) /lpf Urine Bacteria (Auto) (Negative) Ur Renal Epithelial Cell 12/18/20 12/18/20 12/18/20 Range/Units 14:35 11:42 11:22 WBC (4.8-10.8) K/uL RBC (4.7-6.1) M/uL Hgb (14.0-18.0) g/dL Hct (42-52) % MCV (80-100) fL MCH (25-34) pg MCHC (32-36) g/dL RDW Std Deviation (36.4-46.3) fL RDW Coeff of Pham (11.5-14.5) % Plt Count (130-400) K/uL MPV (7.4-10.4) fL Immature Gran % (Auto) % Neut % (Auto) % Lymph % (Auto) % [place] % (Auto) % Eos % (Auto) % Baso % (Auto) % Neut # (Auto) (1.4-6.5) K/uL Lymph # (Auto) (1.2-3.4) K/uL Sunflower # (Auto) (0.11-0.59) K/uL Eos # (Auto) (0-0.5) K/uL Baso # (Auto) (0-0.2) K/uL Immature Gran # (Auto) (0.00-0.02) K/uL Sodium (136-145) mmol/L Potassium (3.5-5.1) mmol/L Chloride (98-107) mmol/L Carbon Dioxide (21-32) mmol/L Anion Gap (3-11) BUN (7-18) mg/dl Creatinine (0.6-1.4) mg/dl Est Cr Clr Drug Dosing ml/min Est GFR ( Amer) ml/min Est GFR (Non-Af Amer) ml/min BUN/Creatinine Ratio (10-20) Glucose (70-99) mg/dl POC Glucose 128 H 132 H (70-99) mg/dl Estimat Average Glucose mg/dl Hemoglobin A1c (4.5-5.6) % Calcium (8.5-10.1) mg/dl Magnesium (1.8-2.4) mg/dl Troponin I (0-0.045) ng/ml Urine Color Dark Yellow Urine Appearance Clear (Clear) Urine pH 5.0 (4.5-7.5) Ur Specific [place] > 1.045 H (1.000-1.030) Urine Protein 4+ H (Negative) Urine Glucose (UA) 3+ H (Negative) Urine Ketones Trace H (Negative) Urine Blood 1+ H (Negative) Urine Nitrite Negative (Negative) Urine Bilirubin Negative (Negative) Urine Urobilinogen Negative (Negative) Ur Leukocyte Esterase Negative (Negative) Urine WBC (Auto) 10-30 H (0-5) /hpf Urine RBC (Auto) 0-4 (0-4) /hpf U Hyaline Cast (Auto) 1-5 (0-5) /lpf U Epithel Cells (Auto) >30 H (0-5) /lpf Urine Bacteria (Auto) Negative (Negative) Ur Renal Epithelial Cell Not Reportable 12/18/20 12/18/20 12/18/20 Range/Units 09:33 09:33 09:33 WBC 13.31 H (4.8-10.8) K/uL RBC 4.26 L (4.7-6.1) M/uL Hgb 13.0 L (14.0-18.0) g/dL Hct 39.4 L (42-52) % MCV 92.5 (80-100) fL MCH 30.5 (25-34) pg MCHC 33.0 (32-36) g/dL RDW Std Deviation 47.8 H (36.4-46.3) fL RDW Coeff of Pham 14.1 (11.5-14.5) % Plt Count 285 (130-400) K/uL MPV 10.0 (7.4-10.4) fL Immature Gran % (Auto) % Neut % (Auto) % Lymph % (Auto) % [place] % (Auto) % Eos % (Auto) % Baso % (Auto) % Neut # (Auto) (1.4-6.5) K/uL Lymph # (Auto) (1.2-3.4) K/uL Sunflower # (Auto) (0.11-0.59) K/uL Eos # (Auto) (0-0.5) K/uL Baso # (Auto) (0-0.2) K/uL Immature Gran # (Auto) (0.00-0.02) K/uL Sodium 137 (136-145) mmol/L Potassium 4.3 (3.5-5.1) mmol/L Chloride 105 (98-107) mmol/L Carbon Dioxide 28 (21-32) mmol/L Anion Gap 4.0 (3-11) BUN 16 D (7-18) mg/dl Creatinine 2.19 H D (0.6-1.4) mg/dl Est Cr Clr Drug Dosing 34.3 ml/min Est GFR ( Amer) 34.3 ml/min Est GFR (Non-Af Amer) 29.6 ml/min BUN/Creatinine Ratio 7.3 L (10-20) Glucose 142 H (70-99) mg/dl POC Glucose (70-99) mg/dl Estimat Average Glucose 301 mg/dl Hemoglobin A1c 12.1 H (4.5-5.6) % Calcium 8.8 D (8.5-10.1) mg/dl Magnesium (1.8-2.4) mg/dl Troponin I 0.641 H* (0-0.045) ng/ml Urine Color Urine Appearance (Clear) Urine pH (4.5-7.5) Ur Specific [place] (1.000-1.030) Urine Protein (Negative) Urine Glucose (UA) (Negative) Urine Ketones (Negative) Urine Blood (Negative) Urine Nitrite (Negative) Urine Bilirubin (Negative) Urine Urobilinogen (Negative) Ur Leukocyte Esterase (Negative) Urine WBC (Auto) (0-5) /hpf Urine RBC (Auto) (0-4) /hpf U Hyaline Cast (Auto) (0-5) /lpf U Epithel Cells (Auto) (0-5) /lpf Urine Bacteria (Auto) (Negative) Ur Renal Epithelial Cell Medications Administered Current Inpatient Medications Acetaminophen (Acetaminophen 325 Mg Tab) 650 mg PO Q4H PRN PRN Reason: Pain or Fever Stop: 01/16/21 15:16 Last Admin: 12/19/20 00:16 Dose: 650 mg Documented by: Al Hydrox/Mg Hydrox/Simethicone (Aluminum/Magnesium Susp 30 Ml Udc) 30 ml PO Q6H PRN PRN Reason: Dyspepsia Stop: 01/17/21 10:08 Last Admin: 12/19/20 01:08 Dose: 30 ml Documented by: Carvedilol (Carvedilol 3.125 Mg Tab) 3.125 mg PO HS [facility] Stop: 01/16/21 20:59 Last Admin: 12/18/20 21:04 Dose: 3.125 mg Documented by: Pantoprazole Sodium 40 mg/ (Dextrose) 100 mls @ 20 mls/hr IV Q5H [facility] Stop: 01/16/21 13:14 Last Admin: 12/19/20 05:34 Dose: 8 mg/hr, 20 mls/hr Documented by: Sodium Chloride (Nss 1000ml) 1,000 mls @ 125 mls/hr IV .Q8H [facility] Stop: 01/16/21 15:59 Last Admin: 12/19/20 01:09 Dose: 125 mls/hr Documented by: Insulin Aspart (Insulin Aspart 100 Units/Ml 3 Ml Pen) 0 units SC Q6 [facility] Stop: 01/16/21 20:59 Last Admin: 12/19/20 05:34 Dose: Not Given Documented by: Insulin Detemir (Insulin Detemir Flexpen/Flex Touch 100 Units/Ml 3ml) 12 units SC BID [facility] Stop: 01/17/21 08:59 Last Admin: 12/18/20 21:04 Dose: 12 units Documented by: Lidocaine (Lidocaine 5% 1 Patch) 1 patch TD QAM [facility] Stop: 01/17/21 14:59 Last Admin: 12/18/20 16:09 Dose: 1 patch Documented by: Miscellaneous (Remove Lidoderm Patch) 1 ea N/A DAILY@2100 [facility] Stop: 01/17/21 22:59 Last Admin: 12/19/20 00:06 Dose: 1 ea Documented by: Miscellaneous Information (Pharmacy Glycemic Mgmt Consult) 1 ea N/A UD PRN PRN Reason: Consult Stop: 01/16/21 15:48 Nitroglycerin (Nitroglycerin 2% Ointment 30gm Tube) 1 inch EXT Q6 [facility] Stop: 01/16/21 17:59 Last Admin: 12/19/20 05:34 Dose: 1 inch Documented by: Pantoprazole Sodium (Pantoprazole 40 Mg Tab) 40 mg PO QAM [facility] Stop: 01/17/21 08:59 Trazodone HCl (Trazodone Hcl 50 Mg Tab) 50 mg PO BID [facility] Stop: 01/16/21 20:59 Last Admin: 12/18/20 21:07 Dose: 50 mg Documented by:
[2020-12-19] MEDS: INSULIN DETEMIR FLEXPEN/FLEX TOUCH 100 UNITS/ML 3ML SC SCH ×2 (08:44→20:28)
[2020-12-19] MEDS: LIDOCAINE 5% 1 PATCH TD SCH (08:44)
[2020-12-19] MEDS: traZODone HCL 50 MG TAB PO SCH ×2 (08:49→20:27)
--- NOTE | 2020-12-19 13:33 | Cardiology Progress Note ---
Date of Service December 19, 2020 Assessment & Plan (1) Elevated troponin: (2) UGIB (upper gastrointestinal bleed): (3) CAD (coronary artery disease): (4) Hypertensive urgency: Plan: 70-year-old patient present to the emergency department with severe low back pain, nausea, vomiting, and coffee-ground emesis. Troponin elevated secondary to demand ischemia in the setting of acute pain, hypertensive urgency with underlying multivessel coronary disease. Plaque rupture event less likely given presentation. ECG demonstrating left ventricular hypertrophy with repolarization abnormality, poor R wave progression. Unchanged when directly compared to ECG dated 12/17/2020. He is currently chest pain free. History of multivessel coronary disease diagnosed in 2015 and 2019with patient declining surgical revascularization. Outpatient records were reviewed. Patient presents for second episode of back pain with hematemesis with hospitalization at [facility] on 11/14/2020. Echocardiogram performed on 11/13/2020: (Per report) Mild left ventricular hypertrophy EF 50 to 55%, mild aortic stenosis peak aortic valve velocity 2.3 m/s We will continue current cardiac therapies with carvedilol and topical nitrates. Dissipate restarting statin on discharge Aspirin depending on GI evaluation Strongly encourage patient to undergo EGD Admission and Anticipated Discharge Date Admission Date: December 17, 2020 Subjective Patient was seen and examined, chart, medications, telemetry reviewed. No cardiac complaints with chronic back pain issues worse this morning. Nauseated but no hematemesis. No arrhythmias on telemetry Review of Systems Review of Systems: All systems reviewed & are unremarkable except as noted in Subjective Physical Exam Constitutional: + disheveled and cooperative; no acute distress ENMT: external ear and nose normal, oropharynx normal Respiratory: no respiratory distress and no labored breathing Auscultation: no crackles, no rales, no rhonchi and no wheezes Cardiovascular: Rate/Rhythm: regular rate and regular rhythm Heart Sounds: normal S1, normal S2 and + murmur (2/6 systolic ejection murmur) Gastrointestinal (Abdomen): Inspection/Auscultation: abdomen normal to inspection and normal bowel sounds; abdomen not distended Percussion/Palpation: + abdomen tender and abdomen soft; no guarding and abdomen not rigid Neurologic: CN's II-XI intact bilaterally and moves all extremities; no focal motor deficits Motor/Sensory: no tremor Psychiatric: Orientation: oriented x 3 and + guarded Results & Data ([facility]) Vital Signs (Past 12 Hours) Vital Signs Temp Pulse Pulse Resp BP BP Pulse Ox 12/19/20 11:30 36.3 C L 78 16 149/64 H 96 12/19/20 08:00 77 12/19/20 07:46 36.8 C 68 18 143/73 H 95 12/19/20 03:41 37.2 C 72 18 108/72 96 Laboratory Results Laboratory Results - last 24 hr 12/18/20 12/18/20 12/18/20 14:35 18:10 20:20 WBC RBC Hgb Hct MCV MCH MCHC RDW Std Deviation RDW Coeff of Pham Plt Count MPV Immature Gran % (Auto) Neut % (Auto) Lymph % (Auto) [place] % (Auto) Eos % (Auto) Baso % (Auto) Neut # (Auto) Lymph # (Auto) [place] # (Auto) Eos # (Auto) Baso # (Auto) Immature Gran # (Auto) Sodium Potassium Chloride Carbon Dioxide Anion Gap BUN Creatinine Est Cr Clr Drug Dosing Est GFR ( Amer) Est GFR (Non-Af Amer) BUN/Creatinine Ratio Glucose POC Glucose 132 H 130 H Calcium Magnesium Urine Color Dark Yellow Urine Appearance Clear Urine pH 5.0 Ur Specific [place] > 1.045 H Urine Protein 4+ H Urine Glucose (UA) 3+ H Urine Ketones Trace H Urine Blood 1+ H Urine Nitrite Negative Urine Bilirubin Negative Urine Urobilinogen Negative Ur Leukocyte Esterase Negative Urine WBC (Auto) 10-30 H Urine RBC (Auto) 0-4 U Hyaline Cast (Auto) 1-5 U Epithel Cells (Auto) >30 H Urine Bacteria (Auto) Negative Ur Renal Epithelial Cell Not Reportable 12/19/20 12/19/20 12/19/20 00:02 05:33 06:44 WBC 10.32 RBC 3.75 L Hgb 11.2 L Hct 35.0 L MCV 93.3 MCH 29.9 MCHC 32.0 RDW Std Deviation 48.4 H RDW Coeff of Pham 14.1 Plt Count 266 MPV 9.7 Immature Gran % (Auto) 0.1 Neut % (Auto) 72.3 Lymph % (Auto) 19.2 [place] % (Auto) 6.2 Eos % (Auto) 1.9 Baso % (Auto) 0.3 Neut # (Auto) 7.46 H Lymph # (Auto) 1.98 [place] # (Auto) 0.64 H Eos # (Auto) 0.20 Baso # (Auto) 0.03 Immature Gran # (Auto) 0.01 Sodium Potassium Chloride Carbon Dioxide Anion Gap BUN Creatinine Est Cr Clr Drug Dosing Est GFR ( Amer) Est GFR (Non-Af Amer) BUN/Creatinine Ratio Glucose POC Glucose 121 H 127 H Calcium Magnesium Urine Color Urine Appearance Urine pH Ur Specific [place] Urine Protein Urine Glucose (UA) Urine Ketones Urine Blood Urine Nitrite Urine Bilirubin Urine Urobilinogen Ur Leukocyte Esterase Urine WBC (Auto) Urine RBC (Auto) U Hyaline Cast (Auto) U Epithel Cells (Auto) Urine Bacteria (Auto) Ur Renal Epithelial Cell 12/19/20 12/19/20 06:44 11:33 WBC RBC Hgb Hct MCV MCH MCHC RDW Std Deviation RDW Coeff of Pham Plt Count MPV Immature Gran % (Auto) Neut % (Auto) Lymph % (Auto) [place] % (Auto) Eos % (Auto) Baso % (Auto) Neut # (Auto) Lymph # (Auto) [place] # (Auto) Eos # (Auto) Baso # (Auto) Immature Gran # (Auto) Sodium 139 Potassium 4.2 Chloride 110 H Carbon Dioxide 24 Anion Gap 5.0 BUN 17 Creatinine 2.11 H Est Cr Clr Drug Dosing 36.0 Est GFR ( Amer) 35.9 Est GFR (Non-Af Amer) 31.0 BUN/Creatinine Ratio 8.1 L Glucose 126 H POC Glucose 129 H Calcium 8.1 L Magnesium 2.4 Urine Color Urine Appearance Urine pH Ur Specific [place] Urine Protein Urine Glucose (UA) Urine Ketones Urine Blood Urine Nitrite Urine Bilirubin Urine Urobilinogen Ur Leukocyte Esterase Urine WBC (Auto) Urine RBC (Auto) U Hyaline Cast (Auto) U Epithel Cells (Auto) Urine Bacteria (Auto) Ur Renal Epithelial Cell Medications Administered Current Medications Acetaminophen (Acetaminophen 325 Mg Tab) 650 mg PO Q4H PRN PRN Reason: Pain or Fever Stop: 01/16/21 15:16 Last Admin: 12/19/20 00:16 Dose: 650 mg Documented by: Al Hydrox/Mg Hydrox/Simethicone (Aluminum/Magnesium Susp 30 Ml Udc) 30 ml PO Q6H PRN PRN Reason: Dyspepsia Stop: 01/17/21 10:08 Last Admin: 12/19/20 01:08 Dose: 30 ml Documented by: Carvedilol (Carvedilol 3.125 Mg Tab) 3.125 mg PO HS [facility] Stop: 01/16/21 20:59 Last Admin: 12/18/20 21:04 Dose: 3.125 mg Documented by: Pantoprazole Sodium 40 mg/ (Dextrose) 100 mls @ 20 mls/hr IV Q5H [facility] Stop: 01/16/21 13:14 Last Admin: 12/19/20 10:34 Dose: 8 mg/hr, 20 mls/hr Documented by: Sodium Chloride (Nss 1000ml) 1,000 mls @ 125 mls/hr IV .Q8H [facility] Stop: 01/16/21 15:59 Last Admin: 12/19/20 08:50 Dose: 125 mls/hr Documented by: Insulin Aspart (Insulin Aspart 100 Units/Ml 3 Ml Pen) 0 units SC Q6 [facility] Stop: 01/16/21 20:59 Last Admin: 12/19/20 12:32 Dose: Not Given Documented by: Insulin Detemir (Insulin Detemir Flexpen/Flex Touch 100 Units/Ml 3ml) 12 units SC BID [facility] Stop: 01/17/21 08:59 Last Admin: 12/19/20 08:44 Dose: 12 units Documented by: Lidocaine (Lidocaine 5% 1 Patch) 1 patch TD QAM [facility] Stop: 01/17/21 14:59 Last Admin: 12/19/20 08:44 Dose: 1 patch Documented by: Miscellaneous (Remove Lidoderm Patch) 1 ea N/A DAILY@2100 [facility] Stop: 01/17/21 22:59 Last Admin: 12/19/20 00:06 Dose: 1 ea Documented by: Miscellaneous Information (Pharmacy Glycemic Mgmt Consult) 1 ea N/A UD PRN PRN Reason: Consult Stop: 01/16/21 15:48 Nitroglycerin (Nitroglycerin 2% Ointment 30gm Tube) 1 inch EXT Q6 [facility] Stop: 01/16/21 17:59 Last Admin: 12/19/20 12:34 Dose: 1 inch Documented by: Pantoprazole Sodium (Pantoprazole 40 Mg Tab) 40 mg PO QAM [facility] Stop: 01/17/21 08:59 Trazodone HCl (Trazodone Hcl 50 Mg Tab) 50 mg PO BID [facility] Stop: 01/16/21 20:59 Last Admin: 12/19/20 08:49 Dose: 50 mg Documented by:
[2020-12-19] MEDS ORDERED: ACETAMINOPHEN 1000 MG/100 ML IV IV ONE (16:37)
[2020-12-19] MEDS: carvediloL 3.125 MG TAB PO SCH (20:27)
[2020-12-20] MEDS: INSULIN ASPART 100 UNITS/ML 3 ML PEN SC SCH ×4 (00:19→17:53)
[2020-12-20] MEDS: NITROGLYCERIN 2% OINTMENT 30GM TUBE EXT SCH ×4 (00:34→17:55)
[2020-12-20] MEDS: SODIUM CHLORIDE 0.9% 1000ML 1,000 ML IV SCH ×3 (00:54→16:50)
[2020-12-20] MEDS: PANTOprazole 40 MG in DEXTROSE 5% 100 ML IV SCH ×5 (00:59→20:07)
[2020-12-20] MEDS: ACETAMINOPHEN 325 MG TAB PO PRN ×4 (03:12→21:25)
[2020-12-20] MEDS: INSULIN DETEMIR FLEXPEN/FLEX TOUCH 100 UNITS/ML 3ML SC SCH ×2 (07:49→22:16)
[2020-12-20] MEDS: LIDOCAINE 5% 1 PATCH TD SCH (07:51)
[2020-12-20] MEDS: traZODone HCL 50 MG TAB PO SCH ×2 (07:51→21:25)
--- NOTE | 2020-12-20 08:03 | Gastroenterology Progress Note ---
Date of Service December 20, 2020 Assessment & Plan (1) Coffee ground emesis: Plan: Discussed pros/cons of EGD vs. UGI series. Pt prefers UGI series. UGI series today. Further recommendations to follow. No evidence of current GI bleeding. Could change PPI drip to po BID. Admission and Anticipated Discharge Date Admission Date: December 17, 2020 Supervising Physician Co-Signing Physician Notes Attg add: Pt adamantly refuses EGD, risks and benefits explained. He is amenable to UGIS. Please reconsult us if needed. Subjective 70 yr old male with DM type II, chronic diastolic CHF, CAD, history of CVA, chronic back pain, paranoid personality disorder,who presented to the ED on 12/17 for coffee grounds emesis. He tells me that he had only one episode, prior to admission and that he hasn't had further since then. Hb 15->11.2 BUN has been normal. Most recent BM 8PM last night, loose, brown. Plan is for EGD today, however, the pt tells Dr. Contreras and that he has had allx reactions to anesthesia in the past and refuses EGD. He describes and requests an UGI series instead and infact believes that his PCP has one arranged as an OP. Review of Systems Review of Systems: ROS: Gen: Denies weakness, fevers, weight loss Eyes: No eye redness, or pain, no recent vision changes Resp: No SOB, no cough Cardio: No palpitations/irregular beats, no chest pain GI: Reports some periumbilical abdominal discomfort; See HPI, otherwise (-) : Denies pain on urination Skin: No jaundice, itching or new rashes Physical Exam Constitutional: well developed, + disheveled and cooperative Eyes: PERRL, conjunctivae normal, anicteric sclerae Respiratory: normal respiratory effort, lungs clear to auscultation Cardiovascular: Rate/Rhythm: regular rate and regular rhythm Heart Sounds: + murmur 2-3/6 systolic murmur loudest at left sternal border Gastrointestinal (Abdomen): normal bowel sounds, soft, nontender, no hepatosplenomegaly Skin: no rashes, warm and dry normal turgor Neurologic: PERRL, EOMI, accommodation nl, no face palsy, no dysarthria awake; not confused Psychiatric: A+Ox3, euthymic affect Orientation: alert, oriented x 3 and cooperative Results & Data ([facility]) Vital Signs (Past 12 Hours) Vital Signs Temp Pulse Pulse Resp BP Pulse Ox 12/20/20 07:31 36.8 C 68 20 179/98 H 97 12/20/20 03:44 36.7 C 73 18 169/89 H 93 12/20/20 00:22 70 12/19/20 23:25 36.8 C 67 18 153/72 H 94 Laboratory Results WBC 3,Hb 11.2, Hct 34, ptls 233, BUN 12, Cr 1.51, glucose 113 Diagnostic Findings CTAP 12/17 with IV contrast: Moderate hiatal hernia. Questionable smooth wall thickening of the pylorus may represent inflammatory process. No evidence of other acute abnormality and in particular no evidence of bowel obstruction. Medications Administered PPI Drip
[2020-12-20 08:12] LABS: Hematocrit (blood only) 34.7 % (42-52); Hemoglobin 11.2 g/dL (14.0-18.0); Mean Corpuscular Hemoglobin 29.9 pg (25-34); Mean Corpuscular Hgb Conc 32.3 g/dL (32-36); Mean Corpuscular Volume 92.8 fL (80-100); Mean Platelet Volume 9.7 fL (7.4-10.4); Platelet Count 233 K/uL (130-400); RDW Standard Deviation 48.2 fL (36.4-46.3); Red Blood Count 3.74 M/uL (4.7-6.1); White Blood Count 8.75 K/uL (4.8-10.8)
[2020-12-20 08:39] LABS: BUN Creatinine Ratio 11.1 (10-20); Calcium 7.8 mg/dl (8.5-10.1); Creatinine Clr Calc Pharmacy 51.6 ml/min; Est GFR (African American) 53.8 ml/min; Est GFR (Non-African American) 46.5 ml/min; Magnesium 2.5 mg/dl (1.8-2.4); Phosphorus 2.4 mg/dl (2.5-4.9); Potassium 4.2 mmol/L (3.5-5.1)
--- NOTE | 2020-12-20 08:48 | Anesthesiology Consultation ---
Date of Service December 20, 2020 Assessment & Plan (1) Encounter for pre-operative examination: Chart Review Chart Review: Acceptable Risk for Surgery History Surgery Operation Date: 12/20/20 17:00 Proposed Procedures p Esophagogastroduodenoscopy Dr Roberts - Sung Contreras MD Height/Weight Height: 5 ft 8 in Weight: 94.8 kg Allergies Allergy/AdvReac Type Severity Reaction Status Date / Time amlodipine [From Norvas] Allergy Confusion Verified 12/17/20 17:42 lisinopril Allergy Unconscious Verified 12/17/20 17:42 metoprolol Allergy Hypertensio Verified 12/17/20 17:42 n oxycodone Allergy "stops my Verified 12/17/20 17:42 breathing" tramadol Allergy "stops my Verified 12/17/20 17:42 breathing" insulin glargine AdvReac muscle Verified 12/17/20 17:42 [From Lantus U-100 Insulin] spasms metformin AdvReac muscle Verified 12/17/20 17:42 spasms sitagliptin [From Januvia] AdvReac makes me Verified 12/17/20 17:42 just vibrate [id number] Reductase AdvReac "it Verified 12/17/20 17:42 Inhibitor destroys my organs Medications Home Medications Medication Instructions Recorded Confirmed Last Taken aspirin 81 mg tablet,delayed 81 mg PO QAM 12/17/20 12/17/20 12/16/20 release carvedilol 3.125 mg tablet 3.125 mg PO HS 12/17/20 12/17/20 12/16/20 furosemide 40 mg tablet 40 mg PO BIDM 12/17/20 12/17/20 12/16/20 insulin detemir U-100 100 unit/mL 20 unit SUBCUT BID 12/17/20 12/17/20 12/16/20 (3 mL) subcutaneous pen (Levemir FlexTouch U-100 Insulin) isosorbide mononitrate 30 mg 30 mg PO DAILY 12/17/20 12/17/20 12/16/20 tablet,extended release 24 hr pantoprazole 40 mg tablet,delayed 40 mg PO QAM 12/17/20 12/17/20 12/16/20 release spironolactone 25 mg tablet 25 mg PO QAM 12/17/20 12/17/20 12/16/20 trazodone 50 mg tablet 50 mg PO BID 12/17/20 12/17/20 12/16/20 Active Medications Generic Name Dose Route Start Last Admin Trade Name Blu PRN Reason Stop Dose Admin Acetaminophen 650 mg 12/17/20 15:17 12/20/20 03:12 Acetaminophen 325 Mg Tab PO 01/16/21 15:16 650 mg Q4H PRN Administration Pain or Fever Al Hydrox/Mg Hydrox/Simethicone 30 ml 12/18/20 10:09 12/19/20 01:08 Aluminum/Magnesium Susp 30 Ml Udc PO 01/17/21 10:08 30 ml Q6H PRN Administration Dyspepsia Carvedilol 3.125 mg 12/17/20 21:00 12/19/20 20:27 Carvedilol 3.125 Mg Tab PO 01/16/21 20:59 3.125 mg HS AMANDO Administration Pantoprazole Sodium 40 mg/ 100 mls @ 20 mls/hr 12/17/20 13:15 12/20/20 05:37 Dextrose IV 01/16/21 13:14 8 mg/hr Q5H AMANDO 20 mls/hr Administration 8 MG/HR Sodium Chloride 1,000 mls @ 125 mls/hr 12/17/20 16:00 12/20/20 08:09 Nss 1000ml IV 01/16/21 15:59 125 mls/hr .Q8H AMANDO Administration Insulin Aspart 0 units 12/18/20 00:00 12/20/20 05:56 Insulin Aspart 100 Units/Ml 3 Ml Pen SC 01/16/21 20:59 Not Given Q6 AMANDO Insulin Detemir 12 units 12/18/20 09:00 12/20/20 07:49 Insulin Detemir Flexpen/Flex Touch 100 Units/Ml 3ml SC 01/17/21 08:59 12 units BID AMANDO Administration Lidocaine 1 patch 12/18/20 15:00 12/20/20 07:51 Lidocaine 5% 1 Patch TD 01/17/21 14:59 1 patch QAM AMANDO Administration Miscellaneous 1 ea 12/18/20 23:00 12/19/20 20:29 Remove Lidoderm Patch N/A 01/17/21 22:59 1 ea DAILY@2100 AMANDO Administration Nitroglycerin 1 inch 12/17/20 18:00 12/20/20 06:05 Nitroglycerin 2% Ointment 30gm Tube EXT 01/16/21 17:59 1 inch Q6 AMANDO Administration Trazodone HCl 50 mg 12/17/20 21:00 12/20/20 07:51 Trazodone Hcl 50 Mg Tab PO 01/16/21 20:59 50 mg BID AMANDO Administration Past Medical History Medical History (Updated 12/20/20 @ 08:51 by Jose Baum MD) CAD (coronary artery disease) Cardiac cath in 2019 showed severe multivessel CAD, patient declining CABG - troponin positive likely due to demand ischemia this admission Chronic back pain Chronic diastolic CHF (congestive heart failure) DM type 2 (diabetes mellitus, type 2) History of CVA (cerebrovascular accident) History of GI bleed History of hypertension Paranoid personality (disorder) Past Family History Family History Denies family history of Heart disease Past Surgical History Surgical History Hx of tonsillectomy Social History Smoking Status: Never smoker Do You Dip or Chew Tobacco: No Hx Alcohol Use: No Hx Substance Use: No Physical Exam Vital Signs Last Vital Signs Temp 36.8 C 12/20/20 07:31 Pulse 68 12/20/20 07:31 Resp 20 12/20/20 07:31 BP 179/98 H 12/20/20 07:31 Pulse Ox 97 12/20/20 07:31 Testing Laboratory Results 12/20/20 08:00 12/20/20 08:00 PT 10.1 Seconds (9.0-12.0) 12/17/20 12:12 INR 1.0 (0.9-1.1) 12/17/20 12:12 APTT 26.4 Seconds (21.0-31.0) 12/17/20 12:12 Hemoglobin A1c 12.1 % (4.5-5.6) H 12/18/20 09:33 Urine Color Dark Yellow 12/18/20 14:35 Urine Appearance Clear (Clear) 12/18/20 14:35 Urine pH 5.0 (4.5-7.5) 12/18/20 14:35 Ur Specific [place] > 1.045 (1.000-1.030) H 12/18/20 14:35 Urine Protein 4+ (Negative) H 12/18/20 14:35 Urine Glucose (UA) 3+ (Negative) H 12/18/20 14:35 Urine Ketones Trace (Negative) H 12/18/20 14:35 Urine Nitrite Negative (Negative) 12/18/20 14:35 Ur Leukocyte Esterase Negative (Negative) 12/18/20 14:35 Urine WBC (Auto) 10-30 /hpf (0-5) H 12/18/20 14:35 Urine RBC (Auto) 0-4 /hpf (0-4) 12/18/20 14:35 U Hyaline Cast (Auto) 1-5 /lpf (0-5) 12/18/20 14:35 U Epithel Cells (Auto) >30 /lpf (0-5) H 12/18/20 14:35 Urine Bacteria (Auto) Negative (Negative) 12/18/20 14:35 Blood Type AB Positive 12/17/20 12:12 Antibody Screen NEGATIVE 12/17/20 12:12 12/17/20 12:37 Aerobic Blood Culture - Preliminary Blood No growth in Aerobic bottle after 48 hours. Anaerobic Blood Culture - Final 12/17/20 12:12 Aerobic Blood Culture - Preliminary Blood No growth in Aerobic bottle after 48 hours. Anaerobic Blood Culture - Preliminary No growth in Anaerobic bottle after 48 hours. 12/18/20 14:35 Urine Culture - Final Urine,Clean Catch Three types of organisms present, all high counts. Repeat collection recommended. No further identifications or sensitivities to follow. 12/20/20 12/20/20 05:51 00:15 POC Glucose 113 H 119 H Electrocardiogram Date: 12/18/20 Findings: + NSR @ (75) and + MN (inferior and anterior) Echocardiogram Date: 11/15/20 EF: 50% Valvular Disease: + (mild)
--- NOTE | 2020-12-20 09:08 | Hospitalist Progress Note ---
Date of Service December 20, 2020 Assessment & Plan (1) UGIB (upper gastrointestinal bleed): Plan: -Admitted to telemetry -Patient presenting from home with reports of worsening chronic back pain and coffee-ground emesis. Patient recently admitted to [facility] 11/13-11/14 for hematemesis. Patient was treated with an NG tube and had improvement in symptoms. Patient declined EGD. FOBT was negative. Hgb 13.7. -In the ED, patient is hemodynamically stable with actually hypertension. Hgb is 15.8 -CT ABD/pelvis unremarkable for acute findings -Emesis tested occult blood positive -S/p Protonix bolus and drip in the ED, continue with IV PPI drip -Trend H&H -Patient expresses concern over sedation for EGD procedure, had anesthesia evaluate the patient -GI consulted - plan for EGD Sunday (12/20) 12/20 - pt declined EGD and after further discussion w/ GI agreed to proceed with upper GI series Hgb stable, no more hematemesis Update: was notified by RN in the evening that pt is now agreeable to EGD as long as his friend Carlos is present (likely Sunday), GI aware (2) Elevated troponin: (3) CAD (coronary artery disease): (4) Hypertensive urgency: Plan: -Initial troponin 1.1, EKG nonischemic appearing -Cardiac cath in 2019 demonstrated multivessel CAD however patient declined CABG -No reports of chest pain -Elevated troponin likely due to demand ischemia from acute GI bleeding and hypertensive urgency -Trend troponin, resting echo (pt declined to repeat echo) -Cardiology consult, input appreciated Echocardiogram performed on 11/13/2020: (Per report) Mild left ventricular hypertrophy EF 50 to 55%, mild aortic stenosis peak aortic valve velocity 2.3 m/s Currently pt refuses to repeat echo -Continue beta-luisa, hold ASA in the setting of acute upper GI bleeding (5) DM type 2 (diabetes mellitus, type 2): Plan: -HgbA1c 12.1% -On Levemir at home -Glycemic pharmacy consult, clinical systems educator consulted (6) Chronic diastolic CHF (congestive heart failure): Plan: -EF reported as low as 35% in the past, however normal per most recent echocardiogram -Appears euvolemic, hold home diuretics for now in the setting of acute upper GI bleeding -Monitor volume status closely (7) Paranoid personality (disorder): Plan: -Currently not on any psychiatric medications -During exam, patient appears to be paranoid and distrustful of medical procedures and medications. (8) History of CVA (cerebrovascular accident): Plan: -Holding ASA due to acute upper GI bleeding (9) Chronic back pain: Plan: -Typically controlled with Tylenol, add lidocaine patch (10) DVT prophylaxis: Plan: -SCDs due to GI bleeding Admission and Anticipated Discharge Date Admission Date: December 17, 2020 Subjective Patient seen in follow-up of back pain, upper GI bleed, elevated troponin Currently laying in bed, complains of nausea after getting upper GI series done He declined EGD and after discussion with GI agreed to upper GI series Denies chest pain or shortness of breath, says he never had chest pain No more hematemesis Review of Systems Review of Systems: All systems reviewed & are unremarkable except as noted in Subjective Physical Exam Physical Exam: Constitutional:L WD/WN, vitals as a natasha Eyes: PERRL, EOMI, conju nctivae normal, an icteric sclerae ENMT: external ear and n ose normal, oropha rynx normal Respiratory: normal respiratory effort, lungs maria l ar to auscultation Cardiovascular:L Rate/Rhythm: regul ar rate and regula r rhythm Vessels: normal peripheral pulses Extremiti es: + edema (Trace edema BLE) Gastrointestinal ( Abdomen): normal bowel sound s, soft, nontender Musculoskeletal: extremities motor strength 5/5 Skin: no rashes, warm an d dry Neurologic: PERRL, EOMI, no fa ce palsy, no dysar thria, moves extre mities Psychiatric: Orientation: alert and oriented x 3 Affect: + flat af fect Thought Cont ent: + paranoid Results & Data Results & Data ([facility]) Vital Signs (Past 12 Hours) Vital Signs Temp Pulse Pulse Resp BP Pulse Ox 12/20/20 07:31 36.8 C 68 20 179/98 H 97 12/20/20 03:44 36.7 C 73 18 169/89 H 93 12/20/20 00:22 70 12/19/20 23:25 36.8 C 67 18 153/72 H 94 Laboratory Results 12/20/20 12/20/20 12/20/20 Range/Units 08:00 08:00 05:51 WBC 8.75 (4.8-10.8) K/uL RBC 3.74 L (4.7-6.1) M/uL Hgb 11.2 L (14.0-18.0) g/dL Hct 34.7 L (42-52) % MCV 92.8 (80-100) fL MCH 29.9 (25-34) pg MCHC 32.3 (32-36) g/dL RDW Std Deviation 48.2 H (36.4-46.3) fL RDW Coeff of Pham 14.0 (11.5-14.5) % Plt Count 233 (130-400) K/uL MPV 9.7 (7.4-10.4) fL Sodium 140 (136-145) mmol/L Potassium 4.2 (3.5-5.1) mmol/L Chloride 112 H (98-107) mmol/L Carbon Dioxide 20 L (21-32) mmol/L Anion Gap 8.0 (3-11) BUN 17 (7-18) mg/dl Creatinine 1.51 H D (0.6-1.4) mg/dl Est Cr Clr Drug Dosing 51.6 ml/min Est GFR ( Amer) 53.8 ml/min Est GFR (Non-Af Amer) 46.5 ml/min BUN/Creatinine Ratio 11.1 (10-20) Glucose 113 H (70-99) mg/dl POC Glucose 113 H (70-99) mg/dl Calcium 7.8 L (8.5-10.1) mg/dl Phosphorus 2.4 L (2.5-4.9) mg/dl Magnesium 2.5 H (1.8-2.4) mg/dl 12/20/20 12/19/20 12/19/20 Range/Units 00:15 17:59 11:33 WBC (4.8-10.8) K/uL RBC (4.7-6.1) M/uL Hgb (14.0-18.0) g/dL Hct (42-52) % MCV (80-100) fL MCH (25-34) pg MCHC (32-36) g/dL RDW Std Deviation (36.4-46.3) fL RDW Coeff of Pham (11.5-14.5) % Plt Count (130-400) K/uL MPV (7.4-10.4) fL Sodium (136-145) mmol/L Potassium (3.5-5.1) mmol/L Chloride (98-107) mmol/L Carbon Dioxide (21-32) mmol/L Anion Gap (3-11) BUN (7-18) mg/dl Creatinine (0.6-1.4) mg/dl Est Cr Clr Drug Dosing ml/min Est GFR ( Amer) ml/min Est GFR (Non-Af Amer) ml/min BUN/Creatinine Ratio (10-20) Glucose (70-99) mg/dl POC Glucose 119 H 140 H 129 H (70-99) mg/dl Calcium (8.5-10.1) mg/dl Phosphorus (2.5-4.9) mg/dl Magnesium (1.8-2.4) mg/dl Medications Administered Current Inpatient Medications Acetaminophen (Acetaminophen 325 Mg Tab) 650 mg PO Q4H PRN PRN Reason: Pain or Fever Stop: 01/16/21 15:16 Last Admin: 12/20/20 03:12 Dose: 650 mg Documented by: Al Hydrox/Mg Hydrox/Simethicone (Aluminum/Magnesium Susp 30 Ml Udc) 30 ml PO Q6H PRN PRN Reason: Dyspepsia Stop: 01/17/21 10:08 Last Admin: 12/19/20 01:08 Dose: 30 ml Documented by: Carvedilol (Carvedilol 3.125 Mg Tab) 3.125 mg PO HS AMANDO Stop: 01/16/21 20:59 Last Admin: 12/19/20 20:27 Dose: 3.125 mg Documented by: Pantoprazole Sodium 40 mg/ (Dextrose) 100 mls @ 20 mls/hr IV Q5H AMANDO Stop: 01/16/21 13:14 Last Admin: 12/20/20 05:37 Dose: 8 mg/hr, 20 mls/hr Documented by: Sodium Chloride (Nss 1000ml) 1,000 mls @ 125 mls/hr IV .Q8H AMANDO Stop: 01/16/21 15:59 Last Admin: 12/20/20 08:09 Dose: 125 mls/hr Documented by: Insulin Aspart (Insulin Aspart 100 Units/Ml 3 Ml Pen) 0 units SC Q6 AMANDO Stop: 01/16/21 20:59 Last Admin: 12/20/20 05:56 Dose: Not Given Documented by: Insulin Detemir (Insulin Detemir Flexpen/Flex Touch 100 Units/Ml 3ml) 12 units SC BID [facility] Stop: 01/17/21 08:59 Last Admin: 12/20/20 07:49 Dose: 12 units Documented by: Lidocaine (Lidocaine 5% 1 Patch) 1 patch TD QAM [facility] Stop: 01/17/21 14:59 Last Admin: 12/20/20 07:51 Dose: 1 patch Documented by: Miscellaneous (Remove Lidoderm Patch) 1 ea N/A DAILY@2100 [facility] Stop: 01/17/21 22:59 Last Admin: 12/19/20 20:29 Dose: 1 ea Documented by: Miscellaneous Information (Pharmacy Glycemic Mgmt Consult) 1 ea N/A UD PRN PRN Reason: Consult Stop: 01/16/21 15:48 Nitroglycerin (Nitroglycerin 2% Ointment 30gm Tube) 1 inch EXT Q6 [facility] Stop: 01/16/21 17:59 Last Admin: 12/20/20 06:05 Dose: 1 inch Documented by: Pantoprazole Sodium (Pantoprazole 40 Mg Tab) 40 mg PO QAM [facility] Stop: 01/17/21 08:59 Trazodone HCl (Trazodone Hcl 50 Mg Tab) 50 mg PO BID [facility] Stop: 01/16/21 20:59 Last Admin: 12/20/20 07:51 Dose: 50 mg Documented by:
--- NOTE | 2020-12-20 10:45 | Pharmacy Report ---
Pharmacy Glycemic Short Note 2 - Date of Service December 20, 2020 - Glycemic Short BSG Results (Last 24 hours): 12/19/20 12/19/20 12/20/20 11:33 17:59 00:15 Glucose POC Glucose 129 H 140 H 119 H 12/20/20 12/20/20 05:51 08:00 Glucose 113 H POC Glucose 113 H OUTPATIENT ANTIDIABETIC REGIMEN: * Levemir 20 units SC BID * HbA1c: 12.1% (12/18/20) ASSESSMENT: 12/19 * BSGs remain very well controlled, ranging 119-140 mg/dL yesterday * Received 24 units of basal insulin only * Remains NPO for EGD today * Do not anticipate any changes today, may need to adjust regimen once diet ordered 12/18 * Pt remains NPO * BSGs trended down nicely with Levemir 25 units SQ last evening. * Outpatient dosing is Levemir 20 units SQ BID - will reduce to 12 units SQ BID for NPO status and continue to titrate based on BSG trends. 12/17/20 * TK is a 70 year old male admitted with upper GI bleed and hypertensive urgency * BSG on presentation is 293 mg/dL, recheck this evening of 328 mg/dL * Ordered IV insulin bolus at time of consult and will give reduced daily dose of Levemir x 1 in light of NPO status * Receiving Protonix gtt (mixed in dextrose) PLAN FOR INPATIENT GLYCEMIC CONTROL: * Basal insulin - continue * Levemir 12 units SC BID * Bolus insulin * NovoLog per scale ACHS or Q6hrs while NPO * Goal Range: Low 110 mg/dL - High 140 mg/dL * Correction Factor: 30 mg/dL/unit * Nutritional / Prandial insulin per carb ratio of 1 unit per 10 grams CHO consumed PLAN FOR DISCHARGE: * HbA1c of 12.1% suggests poor outpatient glycemic control * Patient is currently requiring less insulin while NPO as an inpatient, will follow inpatient insulin needs once diet is ordered * May benefit from addition of mealtime insulin vs. adjustment in basal * Of note, patient has multiple adverse reactions listed to oral antidiabetic medications * Support Patient Self-Management * Healthy Lifestyle (diet, exercise, and smoking cessation) * Disease self-management (SMBG) * Prevention of complications (BP, Lipid goals, Immunizations) * Consider outpatient Diabetes Self-Management Education & Support
--- NOTE | 2020-12-20 11:21 | Fluoroscopy Report ---
SINGLE CONTRAST UPPER GI SERIES CLINICAL HISTORY: Hematemesis COMPARISON STUDY: Abdominal CT dated 12/17/2020 TECHNIQUE: A single contrast upper GI series was performed by having the patient consumed approximat adriana 150 cc of Optiray 300. Spot images of the esophagus and stomach were obtained in multiple obliqui ties in the supine position. The examination is severely degraded by patient's to stand or move on th e table. FINDINGS: The patient swallowed the obturator 300 without difficulty. The esophagus is structurally normal with out evidence of intrinsic or extrinsic mass. There is mucosal irregularity throughout the esophagus s uggesting esophagitis. No gastroesophageal reflux was clearly identified during the examination. The gastroesophageal junction distends normally. The stomach is normal in configuration. There is no evidence of mass or ulceration on this single con trast examination. Question gastric fold thickening. The duodenal bulb and sweep are unremarkable. Fluoroscopy time: 0.6 minutes Fluoroscopic images: 12 IMPRESSION: Findings suggest significant esophagitis and gastritis. Clinical correlation will be requ ired. This can be further assessed with endoscopy if clinically warranted. ACT 112: Negative or not required by law. Electronically signed by: José Miguel Aguilar M.D. 12/20/2020 11:20 AM
[2020-12-20] MEDS: ALUMINUM/MAGNESIUM SUSP 30 ML UDC PO PRN (12:03)
--- NOTE | 2020-12-20 12:22 | Cardiology Progress Note ---
Date of Service December 20, 2020 Assessment & Plan (1) Elevated troponin: (2) UGIB (upper gastrointestinal bleed): (3) CAD (coronary artery disease): (4) Hypertensive urgency: Plan: 70-year-old patient present to the emergency department with severe low back pain, nausea, vomiting, and coffee-ground emesis. Troponin elevated secondary to demand ischemia in the setting of acute pain, hypertensive urgency with underlying multivessel coronary disease. Plaque rupture event less likely given presentation. ECG demonstrating left ventricular hypertrophy with repolarization abnormality, poor R wave progression. Unchanged when directly compared to ECG dated 12/17/2020. He is currently chest pain free. History of multivessel coronary disease diagnosed in 2015 and 2019with patient declining surgical revascularization. Outpatient records were reviewed. Patient presents for second episode of back pain with hematemesis with hospitalization at [facility] on 11/14/2020. Echocardiogram performed on 11/13/2020: (Per report) Mild left ventricular hypertrophy EF 50 to 55%, mild aortic stenosis peak aortic valve velocity 2.3 m/s Discussed cardiac status with patient. He has multiple personal opinions regarding etiology of coronary disease and heart ailments. Optimal medical regimen would include continuing carvedilol, adding ARB, low- dose losartan. Suggest resuming oral isosorbide mononitrate when able. Lipids should be addressed with resumption of statin and aspirin though patient declines all recommendations currently. "Not the doctor for me" Admission and Anticipated Discharge Date Admission Date: December 17, 2020 Subjective Patient seen and examined and telemetry reviewed. Patient declined EGD initially this morning. GI series consistent with significant gastritis/esophagitis Review of Systems Review of Systems: All systems reviewed & are unremarkable except as noted in Subjective Physical Exam Constitutional: + disheveled and cooperative; no acute distress ENMT: external ear and nose normal, oropharynx normal Respiratory: no respiratory distress and no labored breathing Auscultation: no crackles, no rales, no rhonchi and no wheezes Cardiovascular: Rate/Rhythm: regular rate and regular rhythm Heart Sounds: normal S1, normal S2 and + murmur (2/6 systolic ejection murmur) Gastrointestinal (Abdomen): Inspection/Auscultation: abdomen normal to inspection and normal bowel sounds; abdomen not distended Percussion/Palpation: + abdomen tender and abdomen soft; no guarding and abdomen not rigid Neurologic: CN's II-XI intact bilaterally and moves all extremities; no focal motor deficits Motor/Sensory: no tremor Psychiatric: Orientation: oriented x 3 and + guarded Results & Data ([facility]) Vital Signs (Past 12 Hours) Vital Signs Temp Pulse Pulse Resp BP Pulse Ox 12/20/20 11:20 36.7 C 71 18 188/96 H 97 12/20/20 08:00 67 12/20/20 07:31 36.8 C 68 20 179/98 H 97 12/20/20 03:44 36.7 C 73 18 169/89 H 93 12/20/20 00:22 70 Laboratory Results Laboratory Results - last 24 hr 12/17/20 12/19/20 12/20/20 12:12 17:59 00:15 WBC RBC Hgb Hct MCV MCH MCHC RDW Std Deviation RDW Coeff of Pham Plt Count MPV Sodium Potassium Chloride Carbon Dioxide Anion Gap BUN Creatinine Est Cr Clr Drug Dosing Est GFR ( Amer) Est GFR (Non-Af Amer) BUN/Creatinine Ratio Glucose POC Glucose 140 H 119 H Calcium Phosphorus Magnesium Crossmatch See Detail 12/20/20 12/20/20 12/20/20 05:51 08:00 08:00 WBC 8.75 RBC 3.74 L Hgb 11.2 L Hct 34.7 L MCV 92.8 MCH 29.9 MCHC 32.3 RDW Std Deviation 48.2 H RDW Coeff of Pham 14.0 Plt Count 233 MPV 9.7 Sodium 140 Potassium 4.2 Chloride 112 H Carbon Dioxide 20 L Anion Gap 8.0 BUN 17 Creatinine 1.51 H D Est Cr Clr Drug Dosing 51.6 Est GFR ( Amer) 53.8 Est GFR (Non-Af Amer) 46.5 BUN/Creatinine Ratio 11.1 Glucose 113 H POC Glucose 113 H Calcium 7.8 L Phosphorus 2.4 L Magnesium 2.5 H Crossmatch 12/20/20 11:15 WBC RBC Hgb Hct MCV MCH MCHC RDW Std Deviation RDW Coeff of Pham Plt Count MPV Sodium Potassium Chloride Carbon Dioxide Anion Gap BUN Creatinine Est Cr Clr Drug Dosing Est GFR ( Amer) Est GFR (Non-Af Amer) BUN/Creatinine Ratio Glucose POC Glucose 112 H Calcium Phosphorus Magnesium Crossmatch
[2020-12-20 18:50] LABS: Appearance Urine Clear (Clear); Bacteria Urine Automated Negative (Negative); Bilirubin Urine Negative (Negative); Blood Urine 1+ (Negative); Color Urine Yellow; Glucose Urine UA Trace (Negative); Ketones Urine 1+ (Negative); Leukocyte Esterase Urine Negative (Negative); Nitrite Urine Negative (Negative); Protein Urine 3+ (Negative); RBC Urine Automated 0-4 /hpf (0-4); Specific Gravity Urine 1.016 (1.000-1.030); Urobilinogen Urine Negative (Negative); pH Urine 5.5 (4.5-7.5)
[2020-12-20] MEDS: carvediloL 3.125 MG TAB PO SCH (21:22)
[2020-12-20] MEDS ORDERED: INSULIN DETEMIR FLEXPEN/FLEX TOUCH 100 UNITS/ML 3ML SC ONE ×2 (22:00→22:15)
[2020-12-21] MEDS: INSULIN ASPART 100 UNITS/ML 3 ML PEN SC SCH ×5 (00:04→22:30)
[2020-12-21] MEDS: NITROGLYCERIN 2% OINTMENT 30GM TUBE EXT SCH ×4 (00:17→11:07)
[2020-12-21] MEDS: SODIUM CHLORIDE 0.9% 1000ML 1,000 ML IV SCH ×6 (00:38→18:05)
[2020-12-21] MEDS: PANTOprazole 40 MG in DEXTROSE 5% 100 ML IV SCH ×5 (00:58→21:11)
[2020-12-21] MEDS: LIDOCAINE 5% 1 PATCH TD SCH (07:43)
[2020-12-21 08:03] LABS: Hematocrit (blood only) 35.3 % (42-52); Hemoglobin 11.4 g/dL (14.0-18.0); Mean Corpuscular Hgb Conc 32.3 g/dL (32-36); Mean Corpuscular Volume 92.9 fL (80-100); Mean Platelet Volume 9.5 fL (7.4-10.4); Platelet Count 253 K/uL (130-400); RDW Coefficient of Variation 14.1 % (11.5-14.5); RDW Standard Deviation 47.6 fL (36.4-46.3); White Blood Count 9.82 K/uL (4.8-10.8)
[2020-12-21] MEDS: INSULIN DETEMIR FLEXPEN/FLEX TOUCH 100 UNITS/ML 3ML SC SCH ×2 (08:57→22:30)
[2020-12-21] MEDS: traZODone HCL 50 MG TAB PO SCH ×2 (08:59→21:50)
[2020-12-21 09:10] LABS: BUN Creatinine Ratio 9.7 (10-20); Calcium 7.4 mg/dl (8.5-10.1); Creatinine Clr Calc Pharmacy 68.3 ml/min; Est GFR (African American) 75.6 ml/min; Est GFR (Non-African American) 65.3 ml/min; Magnesium 2.4 mg/dl (1.8-2.4); Phosphorus 1.9 mg/dl (2.5-4.9); Potassium 3.9 mmol/L (3.5-5.1)
[2020-12-21] MEDS ORDERED: Nursing to Pharmacy Communication SCH ×2 (10:45→16:45)
[2020-12-21] MEDS ORDERED: ACETAMINOPHEN 1000 MG/100 ML IV IV ONE (11:45)
--- NOTE | 2020-12-21 11:58 | Cardiology Progress Note ---
Date of Service December 21, 2020 Assessment & Plan (1) Elevated troponin: (2) UGIB (upper gastrointestinal bleed): (3) CAD (coronary artery disease): (4) Hypertensive urgency: Plan: 70-year-old patient present to the emergency department with severe low back pain, nausea, vomiting, and coffee-ground emesis. Troponin elevated secondary to demand ischemia in the setting of acute pain, hypertensive urgency with underlying multivessel coronary disease. Plaque rupture event less likely given presentation. ECG demonstrating left ventricular hypertrophy with repolarization abnormality, poor R wave progression. Unchanged when directly compared to ECG dated 12/17/2020. He is currently chest pain free. History of multivessel coronary disease diagnosed in 2015 and 2019with patient declining surgical revascularization. Outpatient records were reviewed. Patient presents for second episode of back pain with hematemesis with hospitalization at [facility] on 11/14/2020. Echocardiogram performed on 11/13/2020: (Per report) Mild left ventricular hypertrophy EF 50 to 55%, mild aortic stenosis peak aortic valve velocity 2.3 m/s Discussed cardiac status with patient. Recommendations: Resume oral isosorbide mononitrate, discontinue topical nitrate Likely increase carvedilol dosing in a.m. Suggest optimal medical regimen with patient once again. He would benefit from ARB and lipid-lowering therapies. Strongly reluctant to consider statin will discuss further with ezetimibe mentioned GI evaluation as per gastroenterology Resume aspirin when able Admission and Anticipated Discharge Date Admission Date: December 17, 2020 Subjective Patient seen and examined, chart, medications, telemetry reviewed. No arrhythmias on telemetry overnight. Blood pressure fluctuating. Patient states he is considering agreeing to have EGD, "later this week " Review of Systems Review of Systems: All systems reviewed & are unremarkable except as noted in Subjective Physical Exam Constitutional: cooperative; no acute distress ENMT: external ear and nose normal, oropharynx normal Respiratory: no respiratory distress and no labored breathing Auscultation: no crackles, no rales, no rhonchi and no wheezes Cardiovascular: Rate/Rhythm: regular rate and regular rhythm Heart Sounds: normal S1, normal S2 and + murmur (2/6 systolic ejection murmur) Gastrointestinal (Abdomen): Inspection/Auscultation: abdomen normal to inspection and normal bowel sounds; abdomen not distended Percussion/Palpation: + abdomen tender and abdomen soft; no guarding and abdomen not rigid Neurologic: CN's II-XI intact bilaterally and moves all extremities; no focal motor deficits Motor/Sensory: no tremor Psychiatric: Orientation: oriented x 3 and + guarded Results & Data ([facility]) Vital Signs (Past 12 Hours) Vital Signs Temp Pulse Pulse Resp BP Pulse Ox 12/21/20 11:40 36.8 C 87 20 118/63 12/21/20 08:15 36.8 C 70 18 178/84 H 98 12/21/20 04:25 61 Laboratory Results Laboratory Results - last 24 hr 12/20/20 12/20/20 12/20/20 16:44 18:08 21:32 WBC RBC Hgb Hct MCV MCH MCHC RDW Std Deviation RDW Coeff of Pham Plt Count MPV Sodium Potassium Chloride Carbon Dioxide Anion Gap BUN Creatinine Est Cr Clr Drug Dosing Est GFR ( Amer) Est GFR (Non-Af Amer) BUN/Creatinine Ratio Glucose POC Glucose 106 H 90 Calcium Phosphorus Magnesium Urine Color Yellow Urine Appearance Clear Urine pH 5.5 Ur Specific [place] 1.016 Urine Protein 3+ H Urine Glucose (UA) Trace H Urine Ketones 1+ H Urine Blood 1+ H Urine Nitrite Negative Urine Bilirubin Negative Urine Urobilinogen Negative Ur Leukocyte Esterase Negative Urine WBC (Auto) 1-5 Urine RBC (Auto) 0-4 U Hyaline Cast (Auto) 1-5 U Epithel Cells (Auto) 5-10 H Urine Bacteria (Auto) Negative 12/20/20 12/21/20 12/21/20 23:40 06:41 07:25 WBC RBC Hgb Hct MCV MCH MCHC RDW Std Deviation RDW Coeff of Pham Plt Count MPV Sodium Potassium Chloride Carbon Dioxide Anion Gap BUN Creatinine Est Cr Clr Drug Dosing Est GFR ( Amer) Est GFR (Non-Af Amer) BUN/Creatinine Ratio Glucose POC Glucose 90 82 102 H Calcium Phosphorus Magnesium Urine Color Urine Appearance Urine pH Ur Specific [place] Urine Protein Urine Glucose (UA) Urine Ketones Urine Blood Urine Nitrite Urine Bilirubin Urine Urobilinogen Ur Leukocyte Esterase Urine WBC (Auto) Urine RBC (Auto) U Hyaline Cast (Auto) U Epithel Cells (Auto) Urine Bacteria (Auto) 12/21/20 12/21/20 12/21/20 07:54 07:54 11:22 WBC 9.82 RBC 3.80 L Hgb 11.4 L Hct 35.3 L MCV 92.9 MCH 30.0 MCHC 32.3 RDW Std Deviation 47.6 H RDW Coeff of Pham 14.1 Plt Count 253 MPV 9.5 Sodium 141 Potassium 3.9 Chloride 113 H Carbon Dioxide 20 L Anion Gap 8.0 BUN 11 Creatinine 1.14 D Est Cr Clr Drug Dosing 68.3 Est GFR ( Amer) 75.6 Est GFR (Non-Af Amer) 65.3 BUN/Creatinine Ratio 9.7 L Glucose 84 POC Glucose 87 Calcium 7.4 L Phosphorus 1.9 L Magnesium 2.4 Urine Color Urine Appearance Urine pH Ur Specific [place] Urine Protein Urine Glucose (UA) Urine Ketones Urine Blood Urine Nitrite Urine Bilirubin Urine Urobilinogen Ur Leukocyte Esterase Urine WBC (Auto) Urine RBC (Auto) U Hyaline Cast (Auto) U Epithel Cells (Auto) Urine Bacteria (Auto) Medications Administered Current Medications Acetaminophen (Acetaminophen 325 Mg Tab) 650 mg PO Q4H PRN PRN Reason: Pain or Fever Stop: 01/16/21 15:16 Last Admin: 12/20/20 21:25 Dose: 650 mg Documented by: Al Hydrox/Mg Hydrox/Simethicone (Aluminum/Magnesium Susp 30 Ml Udc) 30 ml PO Q6H PRN PRN Reason: Dyspepsia Stop: 01/17/21 10:08 Last Admin: 12/20/20 12:03 Dose: 30 ml Documented by: Carvedilol (Carvedilol 3.125 Mg Tab) 3.125 mg PO HS [facility] Stop: 01/16/21 20:59 Last Admin: 12/20/20 21:22 Dose: 3.125 mg Documented by: Pantoprazole Sodium 40 mg/ (Dextrose) 100 mls @ 20 mls/hr IV Q5H [facility] Stop: 01/16/21 13:14 Last Admin: 12/21/20 11:12 Dose: 8 mg/hr, 20 mls/hr Documented by: Sodium Chloride (Nss 1000ml) 1,000 mls @ 125 mls/hr IV .Q8H [facility] Stop: 01/16/21 15:59 Last Admin: 12/21/20 08:59 Dose: 125 mls/hr Documented by: Insulin Aspart (Insulin Aspart 100 Units/Ml 3 Ml Pen) 0 units SC ACHS [facility] Stop: 01/20/21 11:29 Insulin Detemir (Insulin Detemir Flexpen/Flex Touch 100 Units/Ml 3ml) 9 units SC BID [facility] Stop: 01/20/21 08:59 Last Admin: 12/21/20 08:57 Dose: 9 units Documented by: Lidocaine (Lidocaine 5% 1 Patch) 1 patch TD QAM [facility] Stop: 01/17/21 14:59 Last Admin: 12/21/20 07:43 Dose: 1 patch Documented by: Miscellaneous (Remove Lidoderm Patch) 1 ea N/A DAILY@2100 [facility] Stop: 01/17/21 22:59 Last Admin: 12/20/20 21:25 Dose: 1 ea Documented by: Miscellaneous Information (Pharmacy Glycemic Mgmt Consult) 1 ea N/A UD PRN PRN Reason: Consult Stop: 01/16/21 15:48 Nitroglycerin (Nitroglycerin 2% Ointment 30gm Tube) 1 inch EXT Q6 [facility] Stop: 01/16/21 17:59 Last Admin: 12/21/20 11:07 Dose: 1 inch Documented by: Pantoprazole Sodium (Pantoprazole 40 Mg Tab) 40 mg PO QAM [facility] Stop: 01/17/21 08:59 Trazodone HCl (Trazodone Hcl 50 Mg Tab) 50 mg PO BID [facility] Stop: 01/16/21 20:59 Last Admin: 12/21/20 08:59 Dose: 50 mg Documented by:
[2020-12-21] MEDS: ISOSORBIDE MONO EXTENDED REL 30 MG TABCR PO SCH (13:07)
--- NOTE | 2020-12-21 15:08 | Communication Note ---
Date of Service: December 21, 2020 I was updated - being told last night by the primary hospitalists service that the pt was willing to undergo EGD. Therefore, this morning, I visited the pt and stated, "I heard that you are willing to have an EGD - an upper scope - to look in your stomach." He responded, "I said no such thing." We talked a bit longer. He continued to express that he does not wish to undergo endoscopy. An hour or so later the RN called me to tell me that the pt is agreebale to EGD. He continues to refuse this test when interviewed by attg. Would advance diet. Recommend BID PPI, such as pantoprazole 40mg BID x 1 months then daily and Carafate x 1 month. Discussed these meds and their purpose with the patient who agreed to the plan. May also prescribe an antiemetic such as Zofran if nausea. GI will sign off. Please notify us if new/worsening GI issues or if drop in Hb/Hct with gross GI bleeding. Attg add: UGIS shows esophageal thickening. Pt refusing EGD. Can use anti- secretory therapy as above.
[2020-12-21] MEDS ORDERED: ACETAMINOPHEN 1,000 MG/100 ML VIAL IV PRN (15:55)
[2020-12-21] MEDS: ACETAMINOPHEN 325 MG TAB PO PRN (21:50)
[2020-12-21] MEDS: carvediloL 3.125 MG TAB PO SCH (21:51)
[2020-12-21] MEDS ORDERED: SODIUM CHLORIDE 0.65% NA SOLN 45 ML (OCEAN) ONE (22:48)
[2020-12-21] MEDS ORDERED: SODIUM CHLORIDE 0.65% NA SOLN 45 ML (OCEAN) PRN (22:59)
[2020-12-22] MEDS: PANTOprazole 40 MG in DEXTROSE 5% 100 ML IV SCH ×3 (03:39→13:03)
[2020-12-22] MEDS: SODIUM CHLORIDE 0.9% 1000ML 1,000 ML IV SCH ×3 (06:02→08:43)
[2020-12-22] MEDS ORDERED: DEXTROSE 50% 50 ML SYRINGE IV PRN (07:30)
[2020-12-22] MEDS ORDERED: CARBOHYDRATES FOR HYPOGLYCEMIA PO PRN (07:30)
[2020-12-22] MEDS ORDERED: GLUCAGON FOR INJ 1 MG VIAL IM PRN (07:30)
[2020-12-22] MEDS ORDERED: GLUCOSE 40% GEL 15 GM TUBE PO PRN (07:30)
[2020-12-22] MEDS ORDERED: GLUCOSE 10 TABS/TUBE PO PRN (07:30)
--- NOTE | 2020-12-22 07:40 | Hospitalist Progress Note ---
Date of Service December 21, 2020 Assessment & Plan (1) UGIB (upper gastrointestinal bleed): Plan: -Admitted to telemetry -Patient presenting from home with reports of worsening chronic back pain and coffee-ground emesis. Patient recently admitted to [facility] 11/13-11/14 for hematemesis. Patient was treated with an NG tube and had improvement in symptoms. Patient declined EGD. FOBT was negative. Hgb 13.7. -In the ED, patient is hemodynamically stable with actually hypertension. Hgb is 15.8 -CT ABD/pelvis unremarkable for acute findings -Emesis tested occult blood positive -S/p Protonix bolus and drip in the ED, continue with IV PPI drip -Trend H&H -Patient expresses concern over sedation for EGD procedure, had anesthesia evaluate the patient -GI consulted - plan for EGD Sunday (12/20) 12/20 - pt declined EGD and after further discussion w/ GI agreed to proceed with upper GI series Upper GI series c/w significant gastritis and esophagitis Hgb stable, no more hematemesis Update: Pt is now agreeable to EGD as long as his friend Carlos is present (likely Sunday), GI aware (2) Elevated troponin: (3) CAD (coronary artery disease): (4) Hypertensive urgency: Plan: -Initial troponin 1.1, EKG nonischemic appearing -Cardiac cath in 2019 demonstrated multivessel CAD however patient declined CABG -No reports of chest pain -Elevated troponin likely due to demand ischemia from acute GI bleeding and hypertensive urgency -Trend troponin, resting echo (pt declined to repeat echo) -Cardiology consult, input appreciated Echocardiogram performed on 11/13/2020: (Per report) Mild left ventricular hypertrophy EF 50 to 55%, mild aortic stenosis peak aortic valve velocity 2.3 m/s Currently pt refuses to repeat echo -Continue beta-luisa, hold ASA initially (restart when able) in the setting of acute upper GI bleeding - pt distrustful about any procedures and / or medical management, often changes his mind about what he is ok with and what he does not want to do - continue discussion to try to achieve most adequate medical care (5) DM type 2 (diabetes mellitus, type 2): Plan: -HgbA1c 12.1% -On Levemir at home -Glycemic pharmacy consult, wellness educator consulted (6) Chronic diastolic CHF (congestive heart failure): Plan: -EF reported as low as 35% in the past, however normal per most recent echocardiogram -Appears euvolemic, hold home diuretics for now in the setting of acute upper GI bleeding -Monitor volume status closely (7) Paranoid personality (disorder): Plan: -Currently not on any psychiatric medications -During exam, patient appears to be paranoid and distrustful of medical procedures and medications. (8) History of CVA (cerebrovascular accident): Plan: -Holding ASA due to acute upper GI bleeding -resume ASA when able (9) Chronic back pain: Plan: -Typically controlled with Tylenol, add lidocaine patch (10) DVT prophylaxis: Plan: -SCDs due to GI bleeding Admission and Anticipated Discharge Date Admission Date: December 17, 2020 Subjective Patient seen in follow-up of back pain, upper GI bleed, elevated troponin Currently laying in bed, in NAD however reports that food "did not agree with him", he would like to go back to clear liquid diet Had upper GI series done yesterday as he declined EGD Now he says that he thought GI wanted to do colonoscopy , he is ok with EGD (GI notified) Denies chest pain or shortness of breath, says he never had chest pain No more hematemesis Review of Systems Review of Systems: All systems reviewed & are unremarkable except as noted in Subjective Physical Exam Physical Exam: Constitutional: WD/WN, vitals as above Eyes: PERRL, EOMI, conjunctivae normal, anicteric sclerae ENMT: external ear and nose normal, oropharynx normal Respiratory: normal respiratory effort, lungs clear to auscultation Cardiovascular:Rate/Rhythm: regular rate and regular rhythm Vessels: normal peripheral pulses Extremities: + edema (Trace edema BLE) Gastrointestinal (Abdomen): normal bowel sounds, soft, nontender Musculoskeletal:extremities motor, strength 5/5 Skin: no rashes, warm and dry Neurologic: PERRL, EOMI, no face palsy, no dysarthria, moves extremities Psychiatric: Orientation: alert and oriented x 3Affect: + flat affect Thought Content: + paranoid Results & Data Results & Data ([facility]) Vital Signs (Past 12 Hours) Vital Signs Temp Pulse Pulse Resp BP Pulse Ox 12/22/20 07:04 36.8 C 62 20 197/90 H 98 12/22/20 03:03 72 22 97 12/21/20 23:38 59 L 12/21/20 23:00 60 22 98 12/21/20 21:50 37.0 C 65 22 181/79 H 96
[2020-12-22] MEDS: ISOSORBIDE MONO EXTENDED REL 30 MG TABCR PO SCH (08:44)
[2020-12-22] MEDS: traZODone HCL 50 MG TAB PO SCH ×2 (08:44→20:01)
[2020-12-22] MEDS: LIDOCAINE 5% 1 PATCH TD SCH (08:45)
[2020-12-22] MEDS: INSULIN DETEMIR FLEXPEN/FLEX TOUCH 100 UNITS/ML 3ML SC SCH (08:45)
[2020-12-22] MEDS: INSULIN ASPART 100 UNITS/ML 3 ML PEN SC SCH ×5 (08:47→19:56)
--- NOTE | 2020-12-22 14:12 | Cardiology Progress Note ---
Date of Service December 22, 2020 Assessment & Plan (1) Elevated troponin: (2) UGIB (upper gastrointestinal bleed): (3) CAD (coronary artery disease): (4) Hypertensive urgency: Plan: 70-year-old patient present to the emergency department with severe low back pain, nausea, vomiting, and coffee-ground emesis. Troponin elevated secondary to demand ischemia in the setting of acute pain, hypertensive urgency with underlying multivessel coronary disease. Plaque rupture event less likely given presentation. ECG demonstrating left ventricular hypertrophy with repolarization abnormality, poor R wave progression. Unchanged when directly compared to ECG dated 12/17/2020. He is currently chest pain free. History of multivessel coronary disease diagnosed in 2015 and 2019with patient declining surgical revascularization. Outpatient records were reviewed. Patient presents for second episode of back pain with hematemesis with hospitalization at [facility] on 11/14/2020. Echocardiogram performed on 11/13/2020: (Per report) Mild left ventricular hypertrophy EF 50 to 55%, mild aortic stenosis peak aortic valve velocity 2.3 m/s Discussed cardiac status with patient. Recommendations: Increase isosorbide mononitrate to 60 mg/day. Once again discussed optimal medical regimen which patient declined Resume aspirin post hospital discharge GI follow-up Admission and Anticipated Discharge Date Admission Date: December 17, 2020 Subjective Patient seen and examined, chart, medications, telemetry reviewed. No cardiac complaints. GI issues appear stable. Blood pressures are trending higher but patient attributes to agitation while hospitalized Review of Systems Review of Systems: All systems reviewed & are unremarkable except as noted in Subjective Physical Exam Constitutional: cooperative; no acute distress ENMT: external ear and nose normal, oropharynx normal Respiratory: no respiratory distress and no labored breathing Auscultation: no crackles, no rales, no rhonchi and no wheezes Cardiovascular: Rate/Rhythm: regular rate and regular rhythm Heart Sounds: normal S1, normal S2 and + murmur (2/6 systolic ejection murmur) Gastrointestinal (Abdomen): Inspection/Auscultation: abdomen normal to inspection and normal bowel sounds; abdomen not distended Percussion/Palpation: + abdomen tender and abdomen soft; no guarding and abdomen not rigid Neurologic: CN's II-XI intact bilaterally and moves all extremities; no focal motor deficits Motor/Sensory: no tremor Psychiatric: Orientation: oriented x 3 and + guarded Results & Data ([facility]) Vital Signs (Past 12 Hours) Vital Signs Temp Pulse Pulse Resp BP Pulse Ox 12/22/20 11:57 36.7 C 69 18 189/109 H 99 12/22/20 08:30 52 L 12/22/20 07:04 36.8 C 62 20 197/90 H 98 12/22/20 03:03 72 22 97 Laboratory Results Laboratory Results - last 24 hr 12/21/20 12/21/20 12/21/20 13:15 16:38 21:49 POC Glucose 87 102 H Stl C. diff Tox B Gene Negative Cdiff Gene 12/22/20 12/22/20 07:17 11:24 POC Glucose 93 98 Stl C. diff Tox B Gene
--- NOTE | 2020-12-22 16:16 | Communication Note ---
Date of Service: December 22, 2020 Pt decided that he agrees to EGD. Will plan for EGD tomorrow by Dr. Contreras. NPO after midnight except meds.
--- NOTE | 2020-12-22 16:40 | XRay Report ---
XR lumbar spine 2-3V CLINICAL HISTORY: Chronic lower back pain TECHNIQUE: 3 views of the lumbar spine were obtained. Comparison: None available at the time of this dictation. FINDINGS: No fractures or subluxations are identified. Degenerative changes are seen in the lumbar spine. Align ment appears unremarkable. IMPRESSION: No acute fracture or subluxation. ACT 112: Negative or not required by law. Electronically signed by: Adonis Bearden M.D. 12/22/2020 4:39 PM
[2020-12-22] MEDS: SUCRALFATE 1 GM TAB PO SCH ×2 (17:51→20:00)
--- NOTE | 2020-12-22 19:22 | Hospitalist Progress Note ---
Date of Service December 22, 2020 Assessment & Plan (1) UGIB (upper gastrointestinal bleed): Plan: Upper GI bleed GI bleed possibly due to esophagitis and/or gastritis Patient recently admitted to [facility] 11/13-11/14 for hematemesis. --Upper GI series:Findings suggest significant esophagitis and gastritis. Clinical correlation will be required. This can be further assessed with endosco py if clinically warranted. --CT ABD:Moderate hiatal hernia. Questionable smooth wall thickening of the pylorus may represent inflammatory process. No evidence of other acute abnormality and in particular no evidence of bowel obstruction. --Patient declined EGD initially --Emesis tested occult blood positive Continue PPI, Carafate Monitor H&H and transfuse PRBCs as needed Appreciate GI input NPO after midnight for possible EGD tomorrow (2) Elevated troponin: (3) CAD (coronary artery disease): (4) Hypertensive urgency: Plan: Troponin elevation secondary to demand ischemia in setting of acute pain, hypertensive urgency with underlying multivessel coronary disease -Cardiac cath in 2019 demonstrated multivessel CAD however patient declined CABG Patient declined revascularization in the past Patient declined repeat echo Cardiology consulted, input appreciated Echocardiogram performed on 11/13/2020: (Per report) Mild left ventricular hypertrophy EF 50 to 55%, mild aortic stenosis peak aortic valve velocity 2.3 m/s Increase isosorbide to 60 mg daily Resume aspirin as able On carvedilol (5) DM type 2 (diabetes mellitus, type 2): Plan: -HgbA1c 12.1% -On Levemir at home -Glycemic pharmacy consult, paper cutting machine operator consulted (6) Chronic diastolic CHF (congestive heart failure): Plan: EF reported as low as 35% in the past, however normal per most recent echocardiogram Appears euvolemic Resume home diuretics as able Monitor volume status (7) Paranoid personality (disorder): Plan: -Currently not on any psychiatric medications (8) History of CVA (cerebrovascular accident): Plan: Hold ASA due to acute upper GI bleeding resume ASA when able (9) Chronic back pain: Plan: Chronic lower back pain Lumbar X ray:No fractures or subluxations are identified. Degenerative changes are seen in the lumbar spine. Alignment appears unremarkable PT/OT Tylenol, lidocaine patch (10) DVT prophylaxis: Plan: -SCDs due to GI bleeding Admission and Anticipated Discharge Date Admission Date: December 17, 2020 Subjective Patient is seen and examined at bedside States having chronic lower back pain Denies any bleeding issues today Discussed with GI today Patient agrees to have EGD tomorrow Keep him n.p.o. after midnight Review of Systems Review of Systems: All systems reviewed & are unremarkable except as noted in Subjective Physical Exam Physical Exam: Physical Exam: Vitals signs as noted above General Appearance:Obese, no apparent distress Head: normocephalic, Atraumatic Eyes: normal inspection, EOMI Neck: supple, Trachea midline Respiratory/Chest: Normal breath sounds, CTA, No accessory muscle use Cardiovascular: S1, S2, + murmur Abdomen/GI:Soft, Non tender, +Obese, Bowel sounds present Extremities/Musculoskeletal:normal inspection, 1+ B/L LE edema Neurologic/Psych:AAOX3, grossly no focal neurological deficits Skin: normal color, warm Results & Data Results & Data ([facility]) Vital Signs (Past 12 Hours) Vital Signs Temp Pulse Pulse Resp BP Pulse Ox 12/22/20 16:17 36.5 C 78 20 136/69 98 12/22/20 15:30 64 12/22/20 11:57 36.7 C 69 18 189/109 H 99 12/22/20 08:30 52 L
[2020-12-22] MEDS: ACETAMINOPHEN 325 MG TAB PO PRN (19:57)
[2020-12-22] MEDS: carvediloL 3.125 MG TAB PO SCH (20:00)
[2020-12-22] MEDS ORDERED: INSULIN DETEMIR FLEXPEN/FLEX TOUCH 100 UNITS/ML 3ML SC SCH ×2 (21:00)
[2020-12-22] MEDS ORDERED: PANTOprazole 40 MG TAB PO SCH (21:00)
[2020-12-23] MEDS: LIDOCAINE 5% 1 PATCH TD SCH (08:22)
[2020-12-23] MEDS: traZODone HCL 50 MG TAB PO SCH (08:22)
[2020-12-23] MEDS: INSULIN ASPART 100 UNITS/ML 3 ML PEN SC SCH ×2 (08:23→12:25)
[2020-12-23] MEDS: SUCRALFATE 1 GM TAB PO SCH ×2 (08:23→12:26)
[2020-12-23] MEDS ORDERED: ISOSORBIDE MONO EXTENDED REL 60 MG TABCR PO SCH (09:00)
--- NOTE | 2020-12-23 10:50 | Gastroenterology Progress Note ---
Date of Service December 23, 2020 Assessment & Plan (1) Coffee ground emesis: Plan: Likely secondary to esophagitis and gastritis. Twice daily PPI x1 month then daily. Please check Hp stool antigen and treat if positive. Will defer to patient and PCP to arrange outpt EGD if pt is agreeable to this. GI will sign off. Admission and Anticipated Discharge Date Admission Date: December 17, 2020 Supervising Physician Co-Signing Physician Notes Attg add: I interviewed and examined pt, reviewed chart and labs. I again explained pros and cons of endoscopy, risk of occult malignancy. Pt was scheduled for EGD today but now tells me the he does not want an endoscopy today, and does not want to do this while he is hospitalized. Will sign off. Please discharge on twice daily PPI. Pt can follow up with primary, and would ask them to arrange for outpt EGD if pt is amenable. Subjective 70-year-old male admitted on 12/17 for coffee-ground emesis. Upper GI series with esophagitis and gastritis. Through the week, the patient has at times agreed to EGD but at other times is adamantly against undergoing EGD. Today he says that he was forced to sign a consent form for this procedure against his will yesterday. He tells me that he is willing to undergo EGD but not today, that he wants to wait and see if medication helps him first. He tells me that he is feeling very good, that this first day that he has not had any abdominal discomfort. No gross GI bleeding since prior to arrival. Hemoglobin stable. Review of Systems Review of Systems: ROS: Gen: Denies weakness, fevers, weight loss Eyes: No eye redness, or pain, no recent vision changes Resp: No SOB, no cough Cardio: No palpitations/irregular beats, no chest pain GI: No abdominal pain, no nausea/vomiting : Denies pain on urination Skin: No jaundice, itching or new rashes Physical Exam Constitutional: well developed, + disheveled (Somewhat) and cooperative; not in distress Eyes: PERRL, conjunctivae normal, anicteric sclerae Cardiovascular: Regular rate and rhythm, 2/6 to 3/6 systolic murmur. Gastrointestinal (Abdomen): normal bowel sounds, soft, nontender, no hepatosplenomegaly Skin: no rashes, warm and dry normal turgor and + pallor Neurologic: PERRL, EOMI, accommodation nl, no face palsy, no dysarthria awake; not confused Psychiatric: Orientation: alert and oriented x 3 Results & Data ([facility]) Vital Signs (Past 12 Hours) Vital Signs Temp Pulse Pulse Resp BP BP Pulse Ox 12/23/20 10:07 60 12/23/20 08:19 36.7 C 69 20 210/99 H 97 12/23/20 03:07 36.8 C 64 20 196/84 H 97 12/23/20 00:00 36.4 C L 54 L 18 166/66 H 97 Laboratory Results Glucose 103. Hb 11.3 a few days ago. Diagnostic Findings Upper GI series 12/17/2020: Findings suggest significant esophagitis and gastritis. Clinical correlation will be required. This can be further assessed with endoscopy if clinically warranted. CTAP with IV contrast 12/17/2020: Moderate hiatal hernia. Questionable smooth wall thickening of the pylorus may represent inflammatory process. No evidence of other acute abnormality and in particular no evidence of bowel obstruction.
--- NOTE | 2020-12-23 11:31 | Cardiology Progress Note ---
Date of Service December 23, 2020 Assessment & Plan (1) Elevated troponin: (2) UGIB (upper gastrointestinal bleed): (3) CAD (coronary artery disease): (4) Hypertensive urgency: Plan: 70-year-old patient present to the emergency department with severe low back pain, nausea, vomiting, and coffee-ground emesis. Troponin elevated secondary to demand ischemia in the setting of acute pain, hypertensive urgency with underlying multivessel coronary disease. Plaque rupture event less likely given presentation. ECG demonstrating left ventricular hypertrophy with repolarization abnormality, poor R wave progression. Unchanged when directly compared to ECG dated 12/17/2020. He is currently chest pain free. History of multivessel coronary disease diagnosed in 2015 and 2019with patient declining surgical revascularization. Outpatient records were reviewed. Patient presents for second episode of back pain with hematemesis with hospitalization at [facility] on 11/14/2020. Echocardiogram performed on 11/13/2020: (Per report) Mild left ventricular hypertrophy EF 50 to 55%, mild aortic stenosis peak aortic valve velocity 2.3 m/s Discussed cardiac status with patient. Recommendations: Patient declines any further adjustments in medical therapies. Does not wish our service as his physicians. Will sign off Admission and Anticipated Discharge Date Admission Date: December 17, 2020 Subjective Patient was seen chart and laboratory studies reviewed Patient declines further cardiac evaluation or medication changes Declines EGD today Results & Data ([facility]) Vital Signs (Past 12 Hours) Vital Signs Temp Pulse Pulse Resp BP BP Pulse Ox 12/23/20 10:07 60 12/23/20 08:19 36.7 C 69 20 210/99 H 97 12/23/20 03:07 36.8 C 64 20 196/84 H 97 12/23/20 00:00 36.4 C L 54 L 18 166/66 H 97 Laboratory Results Laboratory Results - last 24 hr 12/22/20 12/22/20 12/22/20 16:45 16:52 19:56 POC Glucose 83 92 85 12/23/20 12/23/20 08:34 11:26 POC Glucose 103 H 106 H
[2020-12-23 12:01] VITALS: TEMP 98.6; O2SAT 96
--- NOTE | 2020-12-23 13:39 | Pharmacy Report ---
Pharmacy Glycemic Short Note 2 - Date of Service December 23, 2020 - Glycemic Short BSG Results (Last 24 hours): 12/22/20 12/22/20 12/22/20 16:45 16:52 19:56 POC Glucose 83 92 85 12/23/20 12/23/20 08:34 11:26 POC Glucose 103 H 106 H OUTPATIENT ANTIDIABETIC REGIMEN: * Levemir 20 units SC BID * HbA1c: 12.1% (12/18/20) ASSESSMENT: 12/23 * Patient received 9 units of insulin yesterday, all of which were basal insulin * BSGs remain very well controlled - protonix drip now discontinued (mixed in dextrose) ; may scale back slightly on basal for HS time * Diet resumed at lunch time 12/19 * BSGs remain very well controlled, ranging 119-140 mg/dL yesterday * Received 24 units of basal insulin only * Remains NPO for EGD today * Do not anticipate any changes today, may need to adjust regimen once diet ordered 12/18 * Pt remains NPO * BSGs trended down nicely with Levemir 25 units SQ last evening. * Outpatient dosing is Levemir 20 units SQ BID - will reduce to 12 units SQ BID for NPO status and continue to titrate based on BSG trends. 12/17/20 * TK is a 70 year old male admitted with upper GI bleed and hypertensive urgency * BSG on presentation is 293 mg/dL, recheck this evening of 328 mg/dL * Ordered IV insulin bolus at time of consult and will give reduced daily dose of Levemir x 1 in light of NPO status * Receiving Protonix gtt (mixed in dextrose) PLAN FOR INPATIENT GLYCEMIC CONTROL: * Basal insulin - decrease * Levemir 7 units HS * Bolus insulin * NovoLog per scale ACHS or Q6hrs while NPO * Goal Range: Low 110 mg/dL - High 140 mg/dL * Correction Factor: 30 mg/dL/unit * Nutritional / Prandial insulin per carb ratio of 1 unit per 10 grams CHO consumed PLAN FOR DISCHARGE: * HbA1c of 12.1% suggests poor outpatient glycemic control * Patient is currently requiring less insulin while NPO as an inpatient, will follow inpatient insulin needs once diet is ordered * May benefit from addition of mealtime insulin vs. adjustment in basal * Of note, patient has multiple adverse reactions listed to oral antidiabetic medications * Support Patient Self-Management * Healthy Lifestyle (diet, exercise, and smoking cessation) * Disease self-management (SMBG) * Prevention of complications (BP, Lipid goals, Immunizations) * Consider outpatient Diabetes Self-Management Education & Support
--- NOTE | 2020-12-23 14:02 | Hospitalist Progress Note ---
Date of Service December 23, 2020 Assessment & Plan (1) UGIB (upper gastrointestinal bleed): Plan: Upper GI bleed GI bleed possibly due to esophagitis and/or gastritis Patient recently admitted to [facility] 11/13-11/14 for hematemesis. --Upper GI series:Findings suggest significant esophagitis and gastritis. Clinical correlation will be required. This can be further assessed with endosco py if clinically warranted. --CT ABD:Moderate hiatal hernia. Questionable smooth wall thickening of the pylorus may represent inflammatory process. No evidence of other acute abnormality and in particular no evidence of bowel obstruction. --Patient declined EGD initially --Emesis tested occult blood positive Continue PPI, Carafate Monitor H&H and transfuse PRBCs as needed Appreciate GI input Refused EGD multiple times GI recommends to continue PPI twice a day for 1 month and then transition to once daily Patient to consider EGD as outpatient if he accepts (2) Elevated troponin: (3) CAD (coronary artery disease): (4) Hypertensive urgency: Plan: Troponin elevation secondary to demand ischemia in setting of acute pain, hypertensive urgency with underlying multivessel coronary disease -Cardiac cath in 2020 demonstrated multivessel CAD however patient declined CABG Patient declined revascularization in the past Patient declined repeat echo Cardiology consulted, input appreciated Echocardiogram performed on 11/13/2020: (Per report) Mild left ventricular hypertrophy EF 50 to 55%, mild aortic stenosis peak aortic valve velocity 2.3 m/s Increase isosorbide to 60 mg daily Resume aspirin as able On carvedilol Patient refused any further adjustment of medications or investigations (5) DM type 2 (diabetes mellitus, type 2): Plan: -HgbA1c 12.1% -On Levemir at home -Glycemic pharmacy consult, electrical sign servicer consulted (6) Chronic diastolic CHF (congestive heart failure): Plan: EF reported as low as 35% in the past, however normal per most recent echo cardiogram Appears euvolemic Resume home diuretics as able Monitor volume status (7) Paranoid personality (disorder): Plan: -Currently not on any psychiatric medications (8) History of CVA (cerebrovascular accident): Plan: Hold ASA due to acute upper GI bleeding resume ASA when able (9) Chronic back pain: Plan: Chronic lower back pain Lumbar X ray:No fractures or subluxations are identified. Degenerative changes are seen in the lumbar spine. Alignment appears unremarkable PT/OT Tylenol, lidocaine patch (10) DVT prophylaxis: Plan: -SCDs due to GI bleeding Disposition Patient refused rehab placement Agrees with home with home health Admission and Anticipated Discharge Date Admission Date: December 17, 2020 Subjective Patient is seen and examined at bedside States feeling better Denies any bleeding issues, abdominal pain, nausea, vomiting, chest pain, dyspnea Reports chronic back pain Discussed with GI and Cardiology today Refused EGD, blood draws and further investigations Tolerated diet Review of Systems Review of Systems: All systems reviewed & are unremarkable except as noted in Subjective Physical Exam Physical Exam: Physical Exam: Vitals signs as noted above General Appearance:Obese, no apparent distress Head: normocephalic, Atraumatic Eyes: normal inspection, EOMI Neck: supple, Trachea midline Respiratory/Chest: Normal breath sounds, CTA, No accessory muscle use Cardiovascular: S1, S2, + murmur Abdomen/GI:Soft, Non tender, +Obese, Bowel sounds present Extremities/Musculoskeletal:normal inspection, 1+ B/L LE edema Neurologic/Psych:AAOX3, grossly no focal neurological deficits Skin: normal color, warm Results & Data Results & Data ([facility]) Vital Signs (Past 12 Hours) Vital Signs Temp Pulse Pulse Resp BP Pulse Ox 12/23/20 11:59 37.0 C 89 18 159/79 H 96 12/23/20 10:07 60 12/23/20 08:19 36.7 C 69 20 210/99 H 97 12/23/20 03:07 36.8 C 64 20 196/84 H 97
[2020-12-23 15:30] VITALS: BP 166/66; PULSE 89
--- NOTE | 2020-12-23 16:55 | Discharge Summary ---
Date of Service December 23, 2020 Admission HPI Per Admitting Provider 70-year-old male with PMH DM type II, chronic diastolic CHF, history of CVA, chart history of CAD, chronic back pain, paranoid personality disorder, other problems to below who presents the ED for evaluation of back pain and vomiting. Patient recently admitted to [facility] 11/13-11/14 for hematemesis. Patient was treated with an NG tube and had improvement in symptoms. Patient declined EGD. FOBT was negative. Hgb 13.7. Patient reports he went to bend over and reach for something yesterday and are exacerbated his chronic back pain. He initially wanted to be evaluated in the ED for worsening back pain however shortly before leaving for the hospital, he developed coffee-ground emesis. Reports a black bowel movement this morning. Patient denies abdominal pain. No chest pain or shortness of breath. Patient denies lightheadedness, dizziness, diaphoresis, syncopal events. No fevers or chills. Denies urinary symptoms. In the ED, Hgb is stable at 15.8. Blood pressures are running on the higher side. CT ABD/pelvis shows signs of moderate hiatal hernia, no other acute findings noted. Initial troponin 1.1, EKG appears nonischemic. Patient was given IV morphine, IV Zofran, Protonix bolus and started on a drip. Admission Exam Per Admitting Provider Physical Exam Constitutional: WD/WN, vitals as above Eyes: PERRL, conjunctivae normal, anicteric sclerae ENMT: external ear and nose normal, oropharynx normal Respiratory: normal respiratory effort, lungs clear to auscultation Cardiovascular: Rate/Rhythm: regular rate and regular rhythm Vessels: normal peripheral pulses Extremities: + edema (Trace edema BLE) Gastrointestinal (Abdomen): normal bowel sounds, soft, nontender, no hepatosplenomegaly Coffee-ground emesis noted Musculoskeletal: no cyanosis or clubbing, extremities motor strength 5/5 Skin: no rashes, warm and dry Neurologic: PERRL, EOMI, accommodation nl, no face palsy, no dysarthria Psychiatric: Orientation: alert and oriented x 3 Affect: + flat affect Thought Content: + paranoid Principal Diagnosis Acute gastrointestinal bleeding Hypertensive urgency Chronic back pain Discharge Data Allergies Allergy/AdvReac Type Severity Reaction Status Date / Time amlodipine [[facility]] Allergy Confusion Verified 12/17/20 17:42 lisinopril Allergy Unconscious Verified 12/17/20 17:42 metoprolol Allergy Hypertensio Verified 12/17/20 17:42 n oxycodone Allergy "stops my Verified 12/17/20 17:42 breathing" tramadol Allergy "stops my Verified 12/17/20 17:42 breathing" insulin glargine AdvReac muscle Verified 12/17/20 17:42 [From Lantus U-100 Insulin] spasms metformin AdvReac muscle Verified 12/17/20 17:42 spasms sitagliptin [From Januvia] AdvReac makes me Verified 12/17/20 17:42 just vibrate [id number] Reductase AdvReac "it Verified 12/17/20 17:42 Inhibitor destroys my organs Consultations 12/17/20 14:20 ED Decision to Admit Stat 12/17/20 15:17 Consult Cardiology Routine 12/17/20 15:46 Consult Anesthesiology Routine 12/17/20 15:49 Consult Gastroenterology Routine Procedures Performed Operation Date: 12/20/20 17:00 <No data on this case meets the specified criteria> Operation Date: 12/23/20 17:15 <No data on this case meets the specified criteria> Ordered Studies 12/17/20 11:54 CT abd pelvis IV con only Stat 12/17/20 13:01 CT angio chest PE protocol Stat Diabetes Follow up Diabetes Follow-up Needed for HgbA1c >9% Hospital Course (1) UGIB (upper gastrointestinal bleed): Upper GI bleed GI bleed possibly due to esophagitis and/or gastritis Patient recently admitted to [facility] 11/13-11/14 for hematemesis. --Upper GI series:Findings suggest significant esophagitis and gastritis. Clinical correlation will be required. This can be further assessed with endoscopy if clinically warranted. --CT ABD:Moderate hiatal hernia. Questionable smooth wall thickening of the pylorus may represent inflammatory process. No evidence of other acute abnormality and in particular no evidence of bowel obstruction. --Patient declined EGD initially --Emesis tested occult blood positive Continue PPI, Carafate Monitor H&H and transfuse PRBCs as needed Appreciate GI input Refused EGD multiple times GI recommends to continue PPI twice a day for 1 month and then transition to once daily Patient to consider EGD as outpatient if he accepts (2) Elevated troponin: (3) CAD (coronary artery disease): (4) Hypertensive urgency: Troponin elevation secondary to demand ischemia in setting of acute pain, hypertensive urgency with underlying multivessel coronary disease -Cardiac cath in 2019 demonstrated multivessel CAD however patient declined CABG Patient declined revascularization in the past Patient declined repeat echo Cardiology consulted, input appreciated Echocardiogram performed on 11/13/2020: (Per report) Mild left ventricular hypertrophy EF 50 to 55%, mild aortic stenosis peak aortic valve velocity 2.3 m/s Increase isosorbide to 60 mg daily Resume aspirin as able On carvedilol Patient refused any further adjustment of medications or investigations (5) DM type 2 (diabetes mellitus, type 2): -HgbA1c 12.1% -On Levemir at home -Glycemic pharmacy consult, museum educator consulted (6) Chronic diastolic CHF (congestive heart failure): EF reported as low as 35% in the past, however normal per most recent echocardiogram Appears euvolemic Resume home diuretics as able Monitor volume status (7) Paranoid personality (disorder): -Currently not on any psychiatric medications (8) History of CVA (cerebrovascular accident): Hold ASA due to acute upper GI bleeding resume ASA when able (9) Chronic back pain: Chronic lower back pain Lumbar X ray:No fractures or subluxations are identified. Degenerative changes are seen in the lumbar spine. Alignment appears unremarkable PT/OT Tylenol, lidocaine patch (10) DVT prophylaxis: -SCDs due to GI bleeding Disposition Patient refused rehab placement Agrees with home with home health Total Time Total Time Spent Total Time Spent (In Minutes): 42 minutes Discharge Plan Discharge Items Patient Disposition: Home - Home Health Services Reason For Visit: GI BLEED,ELEVATED TROP Discharge Diagnosis: Acute gastrointestinal bleeding Hypertensive urgency Chronic back pain Condition on Discharge: Good Activity: Per Instructions section Exercise/Sports: Gradually increase as tolerated Non-emergency contact: Primary Care Provider, Car Worker and Jack Setter Call non-emergency contact if: you have any medication questions, your symptoms worsen, your pain is concerning for you and you have a fever Follow-up/Referrals: Scarlett Lay MD [Primary Care Provider] - (Date & Time 12/28/2020 10:00 AM Provider Scarlett Ariza MD Department Family Medicine [facility] ) Diet: Carb Consistent or DM2 and Heart Healthy Addtl Attending Provider Instructions: Follow-up with your primary care physician Dr. Brian Ariza on 12/28/2020 10:00 AM Follow-up with your concrete pipe machine operator Dr. Contreras in 4 weeks for upper endoscopy as outpatient Follow-up with your beet end supervisor as needed for further management of coronary artery disease, hypertension ---Take Protonix 40mg twice a day for 1 month and then transition to once daily as recommended by your concrete pipe machine operator ---Can resume aspirin 81 mg daily in 5 days if no recurrence of bleeding. Do not take group of medications belonging to NSAIDs group -can cause worsening of your kidney function and increase your risk for bleeding List Of these medications includes but not limited to: Diclofenac Ibuprofen, Motrin, Advil Toradol,ketorolac Naproxen, Aleve, Naprosyn You can take Tylenol as needed for pain or fever When buying [id number] pain medications please consult with pharmacy if you are not sure regarding ingredients, as a lot of the pain medications have combination of NSAIDs and Tylenol. Seek immediate medical attention if your symptoms reoccur or worsen Please take all medications as instructed on discharge list below. Please call if you have any questions or problems. You can reach a [facility] hospitalist on duty at [facility] 24 hours a day by calling [phone] Pending Studies at Discharge: No Stand-Alone Forms: My [facility], Smoking Cessation Medications and DC Order Prescriptions: New isosorbide mononitrate 60 mg Tablet Extended Release 24 Hr 60 mg PO QAM Qty: 30 RF: 1 sucralfate 1 gram Tablet 1 g PO QID 30 Days Qty: 120 RF: 0 Continued furosemide 40 mg tablet 40 mg PO BIDM RF: 0 trazodone 50 mg tablet 50 mg PO BID RF: 0 aspirin 81 mg Tablet,Delayed Release (Dr/Ec) 81 mg PO QAM RF: 0 spironolactone 25 mg tablet 25 mg PO QAM RF: 0 carvedilol 3.125 mg tablet 3.125 mg PO HS RF: 0 Levemir FlexTouch U-100 Insuln 100 unit/mL (3 mL) insulin pen 20 unit SUBCUT BID RF: 0 Changed pantoprazole 40 mg tablet,delayed release (DR/EC) 40 mg PO UD Qty: 60 RF: 1 Discontinued isosorbide mononitrate 30 mg tablet extended release 24 hr 30 mg PO DAILY RF: 0 Discharge Orders: Discharge Order (Routine); Ordered 12/23/20 Ordered By: Alexis Jacobo/Other Patient Handouts: High Blood Sugar (Hyperglycemia), Managing Type 2 Diabetes, Special [facility] for Diabetes Admission Data Admit Date/Time: 12/17/20 14:40 Attending Provider: Alexis Dwyer Admit Provider: Chema Estrada Primary Care Provider: cSarlett Lay Other Providers: Christiano Galan ; Mauricio Chisholm ; Israel Garcia ; Chema Estrada ; Megan Broderick ; [facility] ; [facility] Other Interventions: Discharge Summary Assessment (RN) Last Done: 12/23/20 15:27
[2020-12-23] MEDS ORDERED: INSULIN DETEMIR FLEXPEN/FLEX TOUCH 100 UNITS/ML 3ML SC SCH (21:00)
== END 2020-12-23 16:11 | disposition home health service (06) | DRG 368 ==
LOC: ED 10:09 → SUATTDRO 14:40 → EDINP 14:40 → 2S 15:38

== ENCOUNTER 2021-05-29 06:27 | Inpatient (IN) ==
[2021-05-29] MEDS ORDERED: SODIUM CHLORIDE 0.9% 500 ML IV SCH (06:45)
[2021-05-29 07:56] LABS: Basophils # (auto) 0.01 K/uL (0-0.2); Basophils % (auto) 0.1 %; Eosinophils # (auto) 0.14 K/uL (0-0.5); Eosinophils % (auto) 1.8 %; Hematocrit (blood only) 40.6 % (42-52); Hemoglobin 12.7 g/dL (14.0-18.0); Immature Granulocytes # (auto) 0.01 K/uL (0.00-0.02); Immature Granulocytes % (auto) 0.1 %; Lymphocytes # (auto) 1.22 K/uL (1.2-3.4); Lymphocytes % (auto) 15.9 %; Mean Corpuscular Hemoglobin 25.6 pg (25-34); Mean Corpuscular Hgb Conc 31.3 g/dL (32-36); Mean Corpuscular Volume 81.9 fL (80-100); Mean Platelet Volume 9.9 fL (7.4-10.4); Monocytes # (auto) 0.35 K/uL (0.11-0.59); Monocytes % (auto) 4.6 %; Neutrophils # (auto) 5.96 K/uL (1.4-6.5); Neutrophils % (auto) 77.5 %; Platelet Count 234 K/uL (130-400); RDW Coefficient of Variation 17.6 % (11.5-14.5); RDW Standard Deviation 52.2 fL (36.4-46.3); Red Blood Count 4.96 M/uL (4.7-6.1); White Blood Count 7.69 K/uL (4.8-10.8)
[2021-05-29 08:07] LABS: Albumin Globulin Ratio 1.1 (0.9-2); Albumin Level 3.8 gm/dl (3.4-5.0); BUN Creatinine Ratio 16.7 (10-20); Bilirubin,Total 0.6 mg/dl (0.2-1.0); Calcium 8.9 mg/dl (8.5-10.1); Creatinine Clr Calc Pharmacy 54.7 ml/min; Est GFR (Non-African American) 49.2 ml/min; Globulin 3.6 gm/dl (2.5-4.0); Potassium 5.6 mmol/L (3.5-5.1); Total Protein 7.4 gm/dl (6.0-8.3)
[2021-05-29 08:08] LABS: Influenza A virus by PCR Negative (Neg); Influenza B virus by PCR Negative (Neg); RSV by PCR Negative (Neg); SARS CoV2 RNA(COVID-19) InHosp NEGATIVE (Negative)
--- NOTE | 2021-05-29 08:11 | Emergency Department Note ---
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 06/01/21 08:38 Dose: 50 mg Documented by: [id number] Cosigned by: [id number] Admin: 05/31/21 20:21 Dose: 50 mg Documented by: [id number] Admin: 05/31/21 08:21 Dose: 50 mg Documented by: [id number] Admin: 05/30/21 20:21 Dose: 50 mg Documented by: [id number] Admin: 05/30/21 07:57 Dose: 50 mg Documented by: [id number] Admin: 05/29/21 21:04 Dose: 50 mg Documented by: [id number] Imaging Data Radiologist's Impression: Chest X-Ray 05/29/21 12:11 XR chest 2V PA/lateral CLINICAL HISTORY: Heart failure. COMPARISON STUDY: Chest CT December 17, 2020. Chest radiograph May 10, 2021. FINDINGS: Cardiomegaly is unchanged. There is no pneumothorax or pleural effusion. Linear right basilar opacity reflects atelectasis. There is no consolidation to suggest pneumonia. There is pulmonary vascular congestion with possible mild pulmonary edema. IMPRESSION: Cardiomegaly. Pulmonary vascular congestion with possible mild pulmonary edema. ACT 112: Negative or not required by law. Electronically signed by: Archie Ferguson M.D. 05/29/2021 2:29 PM Blood Pressure Blood Pressure Findings: Elevated blood pressure Blood Pressure Disposition: further management by hospitalist Discharge Plan Visit Data Chief Complaint: Diarrhea Stated Complaint: Diarrhea ED Provider: Citlali Tavarez Discharge Problem: Diarrhea, Open wound of left lower extremity with complication, Unable to care for self Patient Disposition: Admitted As Inpatient Discharge Instructions Interventions: ED Discharge Assessment Last Done: 05/29/21 14:44 Discharge Problem: Diarrhea Qualifiers: Diarrhea type: presumed infectious Qualified Code(s): R19.7 - Diarrhea, unspecified Open wound of left lower extremity with complication Qualifiers: Encounter type: initial encounter Qualified Code(s): S81.802A - Unspecified open wound, left lower leg, initial encounter
[2021-05-29] MEDS ORDERED: ACETAMINOPHEN 500 MG TAB PO STA (08:51)
[2021-05-29] MEDS ORDERED: LIDOCAINE 5% 1 PATCH TD STA (08:51)
[2021-05-29 11:13] LABS: Adenovirus F 40/41 PCR Not Detected (NotDetected); Astrovirus PCR Not Detected (NotDetected); Campylobacter PCR Not Detected (NotDetected); Clostridium diff Toxin A/B PCR Not Detected (NotDetected); Cryptosporidium PCR Not Detected (NotDetected); Cyclospora cayetanensis PCR Not Detected (NotDetected); Entamoeba histolytica PCR Not Detected (NotDetected); Enteroaggregative E.coli(EAEC) Not Detected (NotDetected); Enteropathogenic E.coli (EPEC) Not Detected (NotDetected); Enterotoxigenic E.coli (ETEC) Not Detected (NotDetected); Giardia lamblia PCR Not Detected (NotDetected); Norovirus GI/GII PCR Not Detected (NotDetected); Plesiomonas shigelloides PCR Not Detected (NotDetected); Rotavirus A PCR Not Detected (NotDetected); Salmonella PCR Not Detected (NotDetected); Sapovirus PCR Not Detected (NotDetected); Shiga-like Toxin E.coli (STEC) Not Detected (NotDetected); Shigella/Enteroinvasive E.coli Not Detected (NotDetected); Vibrio cholerae PCR Not Detected (NotDetected); Vibrio species PCR Not Detected (NotDetected); Yersinia enterocolitica PCR Not Detected (NotDetected)
[2021-05-29] MEDS ORDERED: FUROSEMIDE 40 MG/4 ML VIAL IV ONE (12:14)
--- NOTE | 2021-05-29 12:56 | History & Physical Report ---
Date of Service May 29, 2021 Assessment & Plan (1) Acute on chronic diastolic CHF (congestive heart failure): (2) Bilateral lower extremity edema: Plan: Patient is a 70 yo male with acute on chronic CHF, acute diarrhea, LLE cellulitis, and unfortunate home living conditions who presented to the ED with multiple concerns. Need to address multiple concerns during admission. Admit to Med/Surg Tele Hold outpatient Lasix Start IV Lasix 40 mg now Repeat BMP now with hyperkalemia to assess need for fluids/medication Check BNP, Phos, Mag, CK, Troponin, UA/Cx Ordered EKG, CXR Last Echo 11/15/21- showed EF 50-55%, mild LVH, and mild . Repeat Echo Cardiology consultation Continue Coreg. Monitor BP closely B/L LE edematous with L>R, check Venous Doppler B/L LE to R/O DVT Consult social work to help address home needs. Seems like living situation is a huge contributor to his overall poor health. Has previously refused placement because he is afraid of home being taken away. (3) Cellulitis of left lower extremity: Plan: Wounds were covered in feces, urine, dirt upon admission. Continue wound care. Wound care nurse consultation Appears to have cellulitis of LLE. Will start IV abx with Cefepime and Vancomycin pending improvement. Consider wound culture though likely contaminated with condition of wounds. (4) Open wound of left lower extremity with complication: (5) Open wound of right lower extremity: (6) Left hip pain: Plan: Left hip pain x 1 week s/p fall. Patient unable to ambulate well secondary to this fall. CT Hip CK level ordered as above. PT/OT (7) Hyperkalemia: Plan: Repeat BMP ordered. Pending repeat, consider additional changes Monitor closely (8) Diarrhea: Plan: Stool studies negative upon presentation. ? Medication related vs other Patient is eating and drinking well. Continue diabetic, low sodium, lactose free diet pending improvement. (9) CKD (chronic kidney disease) stage 3, GFR 30-59 ml/min: Plan: Continue to monitor BMP with Lasix, abx. Check in AM (10) Diabetes type 2, uncontrolled: Plan: Patient refuses baseline insulin. Insulin sliding scale ordered A1C reordered Diabetic diet (11) DINO (obstructive sleep apnea): Plan: Continue CPAP (12) History of GI bleed: (13) History of CVA (cerebrovascular accident): Plan: Patient hasn't been taking ASA 81 mg in the past few months due to history of GI bleed. Continue to hold while inpatient Hgb stable (14) Urinary incontinence: Plan: Place Crandall catheter UA/Cx (15) DVT prophylaxis: Plan: SQ Heparin 5,000 Q 12h History of Present Illness Chief Complaint: Diarrhea Primary Care Provider: Scarlett Quiroz MD Patient is a 70 yo male with PMHx of uncontrolled DM, HFrEF, CVA, CKD Stage III, DINO, and paranoid personality disorder who presented to the ED via EMS today for concerns of diarrhea x 48 hours. The patient states that he wouldn't have come in if it wasn't for the fact that he couldn't stop going to the bathroom. He states it has been "pouring out" for 48 hours. He has been incontinent of both stool and urine. He has chronic urinary incontinence x 2 years or more per the patient. Per outpatient and EMS reports, the patient's home conditions are 'deplorable'. Home health records note that the patient's home has urine and feces covering the floor, recliner, etc. There was urine actively dripping off of the patient's recliner and wound dressings the last time they attempted to clean his wounds. Upon presentation to the ED, the patient had wound dressings in place on the lower extremities which were saturated with urine, feces, and dirt. He states that his legs have been swollen for at least 2 months, and he has had open wounds for quite some time. At the time of my exam, the patient looked comfortable. He stated that he currently has no pain. The nursing staff notes that he initially had SOB for which he was requesting O2. The O2 was placed on the patient despite SaO2% >95% consistently. He notes that he has not taken his glimepiride in 2 days as he feels this was a contributing factor to his diarrhea. Diarrhea has not improved. Stool studies done in the ED and thus far negative. Labs revealed hyperkalemia with K+ 5.6. Creatinine 1.4 (baseline outpatient 1.4- 05/03/21). WBC count normal. Hgb 12.7 (last outpt hgb 11.9 05/03/21). LFTs within normal other than slightly elevated Alk Phos 179. Blood cxs drawn and pending. Patient is noncompliant with last A1C 12.1 in December. He has a [employer] and states his BS has been controlled at home (between 120-150). Pt has no abdominal pain. No N/V. No blood in stool. He does have hx of GI bleed. He notes that this is when his ASA 81 mg was stopped, though from his outpatient records he was told to continue ASA 81 mg and stop full dose which he was previously taking. He has not been taking ASA recently. Patient also notes that he is unable to walk well currently because 1 week ago, he was [facility], and on the way home, he was dropped onto his left hip/knees. He has since been immobile and his left hip has been painful. Of note, his 90 yo mother also lives in the home with him. Allergies Allergy/AdvReac Type Severity Reaction Status Date / Time lisinopril Allergy Unconscious Verified 05/29/21 07:47 oxycodone Allergy "stops my Verified 05/29/21 07:47 breathing" tramadol Allergy "stops my Verified 05/29/21 07:47 breathing" amlodipine [From Norvasc] AdvReac Confusion Verified 05/29/21 15:09 insulin glargine AdvReac muscle Verified 05/29/21 07:47 [From Lantus U-100 Insulin] spasms metformin AdvReac muscle Verified 05/29/21 07:47 spasms metoprolol AdvReac Hypertensio Verified 05/29/21 15:09 n sitagliptin [From Januvia] AdvReac makes me Verified 05/29/21 07:47 just vibrate [id number] Reductase AdvReac "it Verified 05/29/21 07:47 Inhibitor destroys my organs Home Medications Medication Instructions Recorded Confirmed Type carvedilol 3.125 mg tablet 3.125 mg PO BID 12/17/20 05/29/21 History furosemide 40 mg tablet 40 mg PO BID 12/17/20 05/29/21 History trazodone 50 mg tablet 50 mg PO BID 12/17/20 05/29/21 History glipizide 2.5 mg tablet, extended 2.5 mg PO QAM 05/10/21 05/29/21 History release 24 hr pantoprazole 40 mg tablet,delayed 40 mg PO DAILYBB 05/10/21 05/29/21 History release isosorbide mononitrate 30 mg 30 mg PO QAM 05/29/21 05/29/21 History tablet,extended release 24 hr spironolactone 25 mg tablet 25 mg PO DAILY 05/29/21 05/29/21 History Past Med/Surg History Medical History CAD (coronary artery disease) Cardiac cath in 2019 showed severe multivessel CAD, patient declining CABG - troponin positive likely due to demand ischemia this admission Chronic back pain Chronic diastolic CHF (congestive heart failure) Coffee ground emesis Diabetes type 2, uncontrolled DM type 2 (diabetes mellitus, type 2) Elevated troponin History of CVA (cerebrovascular accident) History of GI bleed History of hypertension DINO (obstructive sleep apnea) Paranoid personality (disorder) UGIB (upper gastrointestinal bleed) Urinary incontinence Surgical History Hx of tonsillectomy Family History Father Myocardial infarction Denies family history of Heart disease Social History Smoking Status: Unknown if ever smoked Second Hand Exposure: No; Hx Alcohol Use: No Hx Substance Use: No Preferred Language: [place] Communication Ability: Effective Counter Manager Required: No Beliefs That Will Affect Care: None Current Living Situation: Family Current Living Situation Comment: lives with 90 year old mother How many Children do You have: 0 Feels Safe at Home: Yes Assistive Devices: CPAP Review of Systems Review of Systems: ROS otherwise negative except those mentioned in HPI Physical Exam Constitutional: + obese, + disheveled and cooperative; no acute distress Eyes: PERRL, conjunctivae normal, anicteric sclerae ENMT: external ear and nose normal, oropharynx normal Neck: trachea midline, no thyromegaly Respiratory: Auscultation: + diminished lung sounds ( B/L bases); no crackles, no rales, no rhonchi and no wheezes Cardiovascular: Rate/Rhythm: regular rate and regular rhythm Heart Sounds: + murmur (systolic) Extremities: + edema (Severe edema B/L LE and feet. 3+ LLE, 2+ RLE) Distant heart sounds Gastrointestinal (Abdomen): normal bowel sounds, soft, nontender, no hepatosplenomegaly Skin: Multiple superficial appearing open wounds of the LLE and RLE. Anterior tibial surface and Psychiatric: Orientation: alert and oriented x 3 Apperance: + disheveled Eye Contact: good eye contact Affect: euthymic affect Results & Data Results & Data ([facility]) Vital Signs (Past 12 Hours) Vital Signs Temp Pulse Resp BP Pulse Ox 05/29/21 11:01 75 19 133/83 05/29/21 11:00 76 20 05/29/21 10:30 77 18 05/29/21 10:01 77 13 118/80 05/29/21 10:00 76 12 05/29/21 09:30 79 14 05/29/21 09:00 78 23 127/73 05/29/21 08:30 78 23 05/29/21 08:00 79 142/89 H 05/29/21 07:30 76 11 L 98 05/29/21 07:20 75 24 144/94 H 98 05/29/21 07:00 75 22 05/29/21 06:34 72 19 97 05/29/21 06:18 36.8 C 71 18 135/76 98 Laboratory Results Laboratory Results - last 24 hr 05/29/21 05/29/21 05/29/21 07:19 07:34 07:34 WBC 7.69 RBC 4.96 Hgb 12.7 L Hct 40.6 L MCV 81.9 MCH 25.6 MCHC 31.3 L RDW Std Deviation 52.2 H RDW Coeff of Pham 17.6 H Plt Count 234 MPV 9.9 Immature Gran % (Auto) 0.1 Neut % (Auto) 77.5 Lymph % (Auto) 15.9 [place] % (Auto) 4.6 Eos % (Auto) 1.8 Baso % (Auto) 0.1 Neut # (Auto) 5.96 Lymph # (Auto) 1.22 [place] # (Auto) 0.35 Eos # (Auto) 0.14 Baso # (Auto) 0.01 Immature Gran # (Auto) 0.01 Sodium 132 L Potassium 5.6 H Chloride 98 Carbon Dioxide 29 Anion Gap 5 BUN 24 H Creatinine 1.44 H Est Cr Clr Drug Dosing 54.7 Est GFR ( Amer) 57.0 Est GFR (Non-Af Amer) 49.2 BUN/Creatinine Ratio 16.7 Glucose 172 H Lactate Calcium 8.9 Total Bilirubin 0.6 AST 30 ALT 17 Alkaline Phosphatase 179 H Total Protein 7.4 Albumin 3.8 Globulin 3.6 Albumin/Globulin Ratio 1.1 Stl C. cayetanensis PCR Stool Rotavirus A PCR Stl Adenov F 40/ PCR Stool Astrovirus (PCR) Stool Campylobacter PCR Stl C. diff Tox A/B PCR Stool Cryptosporidium PCR Stl E.coli Shiga Tox PCR Stl Enterotoxigenic E PCR Stool EPEC (PCR) Stool EAEC (PCR) Stl E. histolytica PCR Stool Giardia Lamblia PCR Stool Salmonella PCR Stool Sapovirus (PCR) Stl P. shigelloides PCR Stl Shigella/EIEC PCR St Y.enterocolitica PCR Stool Vibrio (PCR) Stl Vibrio cholerae PCR Stl Norovirus GI/GII PCR SARS-CoV-2 (PCR) NEGATIVE Influenza Type A (PCR) Negative Influenza Type B (PCR) Negative RSV (RT-PCR) Negative 05/29/21 05/29/21 07:34 09:10 WBC RBC Hgb Hct MCV MCH MCHC RDW Std Deviation RDW Coeff of Pham Plt Count MPV Immature Gran % (Auto) Neut % (Auto) Lymph % (Auto) [place] % (Auto) Eos % (Auto) Baso % (Auto) Neut # (Auto) Lymph # (Auto) [place] # (Auto) Eos # (Auto) Baso # (Auto) Immature Gran # (Auto) Sodium Potassium Chloride Carbon Dioxide Anion Gap BUN Creatinine Est Cr Clr Drug Dosing Est GFR ( Amer) Est GFR (Non-Af Amer) BUN/Creatinine Ratio Glucose Lactate 1.0 Calcium Total Bilirubin AST ALT Alkaline Phosphatase Total Protein Albumin Globulin Albumin/Globulin Ratio Stl C. cayetanensis PCR Not Detected Stool Rotavirus A PCR Not Detected Stl Adenov F 40 PCR Not Detected Stool Astrovirus (PCR) Not Detected Stool Campylobacter PCR Not Detected Stl C. diff Tox A/B PCR Not Detected Stool Cryptosporidium PCR Not Detected Stl E.coli Shiga Tox PCR Not Detected Stl Enterotoxigenic E PCR Not Detected Stool EPEC (PCR) Not Detected Stool EAEC (PCR) Not Detected Stl E. histolytica PCR Not Detected Stool Giardia Lamblia PCR Not Detected Stool Salmonella PCR Not Detected Stool Sapovirus (PCR) Not Detected Stl P. shigelloides PCR Not Detected Stl Shigella/EIEC PCR Not Detected St Y.enterocolitica PCR Not Detected Stool Vibrio (PCR) Not Detected Stl Vibrio cholerae PCR Not Detected Stl Norovirus GI/GII PCR Not Detected SARS-CoV-2 (PCR) Influenza Type A (PCR) Influenza Type B (PCR) RSV (RT-PCR) Diagnostic Findings Chest X-Ray 05/29/21 12:11 XR chest 2V PA/lateral CLINICAL HISTORY: Heart failure. COMPARISON STUDY: Chest CT December 17, 2020. Chest radiograph May 10, 2021. FINDINGS: Cardiomegaly is unchanged. There is no pneumothorax or pleural effusion. Linear right basilar opacity reflects atelectasis. There is no consolidation to suggest pneumonia. There is pulmonary vascular congestion with possible mild pulmonary edema. IMPRESSION: Cardiomegaly. Pulmonary vascular congestion with possible mild pulmonary edema. ACT 112: Negative or not required by law. Electronically signed by: Archie Ferguson M.D. 05/29/2021 2:29 PM Venous Doppler Study 05/29/21 12:58 BILATERAL LOWER EXTREMITY VENOUS DOPPLER HISTORY: Bilateral lower extremity swelling. COMPARISON STUDY: None. FINDINGS: There is normal compressibility, flow, and augmentation within the bilateral lower extremity deep venous systems. IMPRESSION: No DVT within the right or left lower extremity. ACT 112: Negative or not required by law. Electronically signed by: Siddhartha Butler M.D. 05/29/2021 2:[address] 05/29/21 13:[address] DOSE: 595.55 mGy.cm HISTORY: Left hip pain s/p fall TECHNIQUE: Multiaxial CT images of the left hip were performed and reformatted in the sagittal and coronal plane without the use of contrast. A dose lowering technique was utilized adhering to the principles of ALARA. COMPARISON: Abdomen and pelvis CT 12/17/2020. FINDINGS: No fracture or dislocation within the left hip. The visualized pelvic bones are intact. Stable small sclerotic foci within the left femoral head and ischial tuberosity likely representing bone islands. Mild to moderate cartilage space narrowing and marginal osteophytes within the left hip consistent with degenerative change. No significant hip effusion. Moderate vascular calcifications are noted. The prostate gland is enlarged. Subcutaneous trace edema and skin thickening within the left lateral hip with a probable soft tissue contusion. No hematoma identified. IMPRESSION: 1. No fracture or dislocation within the left hip. 2. Mild to moderate left hip osteoarthritis. ACT 112: Negative or not required by law. Electronically signed by: Siddhartha Butler M.D. 05/29/2021 2:08 PM Code Status & VTE Plan VTE Prophylaxis Plan VTE Prophylaxis will be ordered: Yes Supervising Physician Co-Signing Physician Notes I have seen and examined the patient and have discussed the case with the provider above. I agree with the assessment and plan as stated. 70 yo M lives with 90 yo mother in a home with feces on the floor per EMS presents with 2 days of diarrhea. He reports glipizide does this to him as a known side effect. He had issues with metformin and with Lantus in the past, also. Stool culture is negative. Also concerning on history is his ambulatory dysfunction which has worsened over the past 3 weeks. He reports pain from OA in his left hip. As a result he reports being seen in the [facility] ER approximately one week ago. He didn't walk out of there, but had to be taken by wheelchair van ([facility]). Patient states when he arrived at home, they "dropped him" on his left side and this made his hip pain worse. He has not been walking since. CT L hip today reveal no acute fractures with OA present. Tylenol was scheduled. Also of concern is significant swelling and reported SOB in the past couple of weeks. He has pulmonary edema on CXR and significant swelling/edema in L>R legs with superficial open wounds. Surrounding cellulitis is appreciated on the left. Wounds were covered with feces on arrival, so do not see the utility in obtaining a surface culture of the wound. On physical exam he is obese and in NAD, generalized weakness is present and he is unable to sit up in bed independently. Lungs are clear to auscultation with diminished breath sounds throughout. There is a 3/6 DELTA present at LSB. Cardiac auscultation also reveals regular rate and rhythm. There is 2+ pitting edema on the left leg to the thig and trace edema with swelling on the right leg. Extremities are warm and well perfused with Stage I-II ulcers on anterior legs bilaterally several cm in diameter. There is an erythematous pink streaking and warmth up the left leg proximally. Abdomen is soft, NTND. Labwork reveals normal WBC, mild anemia around his baseline. BMP reveals Na 133, K 5.6 with 5.7 on repeat check. BUN/creat around his baseline 24/1.4. HS trop is 23.5, and BNP is >4700. UA negative for infection. Stool culture is negative. Imaging as discussed above, and blood cultures are pending. EKG pending. Trop elevated to 23. 70 yo M on glipizide presents with diarrhea, also found to have acute diastolic heart failure and left lower extremity cellulitis. Hyperkalemia present with uncertain cause-noted CK normal ruling out nontraumatic rhabdo. Will give Ca/insulin/dextrose and monitor for diarrhea. Lasix was given. repeat labs tonight. Trend trop overnight. Cardiology consulted and notes that recommendation for CABG was given to patient 2 years ago but he declined. Will update echo this admission. DO Chung
[2021-05-29] MEDS ORDERED: CONSULT PHARMACY STA (13:21)
[2021-05-29 14:09] LABS: Appearance Urine Clear (Clear); Bacteria Urine Automated Negative (Negative); Bilirubin Urine Negative (Negative); Blood Urine 1+ (Negative); Color Urine Yellow; Glucose Urine UA Negative (Negative); Ketones Urine Negative (Negative); Leukocyte Esterase Urine Negative (Negative); Nitrite Urine Negative (Negative); Protein Urine 3+ (Negative); Specific Gravity Urine 1.016 (1.000-1.030); Urobilinogen Urine Negative (Negative)
--- NOTE | 2021-05-29 14:10 | CT Scan Report ---
LEFT HIP CT CT DOSE: 595.55 mGy.cm HISTORY: Left hip pain s/p fall TECHNIQUE: Multiaxial CT images of the left hip were performed and reformatted in the sagittal and co olga lidia plane without the use of contrast. A dose lowering technique was utilized adhering to the prin ciples of MARIA GUADALUPE. COMPARISON: Abdomen and pelvis CT 12/17/2020. FINDINGS: No fracture or dislocation within the left hip. The visualized pelvic bones are intact. Sta ble small sclerotic foci within the left femoral head and ischial tuberosity likely representing bone islands. Mild to moderate cartilage space narrowing and marginal osteophytes within the left hip con sistent with degenerative change. No significant hip effusion. Moderate vascular calcifications are n oted. The prostate gland is enlarged. Subcutaneous trace edema and skin thickening within the left la teral hip with a probable soft tissue contusion. No hematoma identified. IMPRESSION: 1. No fracture or dislocation within the left hip. 2. Mild to moderate left hip osteoarthritis. ACT 112: Negative or not required by law. Electronically signed by: Siddhartha Butler M.D. 05/29/2021 2:08 PM
--- NOTE | 2021-05-29 14:30 | XRay Report ---
XR chest 2V PA/lateral CLINICAL HISTORY: Heart failure. COMPARISON STUDY: Chest CT December 17, 2020. Chest radiograph May 10, 2021. FINDINGS: Cardiomegaly is unchanged. There is no pneumothorax or pleural effusion. Linear right basil ar opacity reflects atelectasis. There is no consolidation to suggest pneumonia. There is pulmonary v ascular congestion with possible mild pulmonary edema. IMPRESSION: Cardiomegaly. Pulmonary vascular congestion with possible mild pulmonary edema. ACT 112: Negative or not required by law. Electronically signed by: Archie Ferguson M.D. 05/29/2021 2:29 PM
--- NOTE | 2021-05-29 14:59 | Ultrasound Report ---
BILATERAL LOWER EXTREMITY VENOUS DOPPLER HISTORY: Bilateral lower extremity swelling. COMPARISON STUDY: None. FINDINGS: There is normal compressibility, flow, and augmentation within the bilateral lower extremit y deep venous systems. IMPRESSION: No DVT within the right or left lower extremity. ACT 112: Negative or not required by law. Electronically signed by: Siddhartha Butler M.D. 05/29/2021 2:57 PM
[2021-05-29] MEDS ORDERED: DC ALL PREVIOUSLY ORDERED DIABETES MEDS ONE (15:07)
[2021-05-29] MEDS ORDERED: DEXTROSE 50% 50 ML SYRINGE IV PRN (15:07)
[2021-05-29] MEDS ORDERED: GLUCAGON FOR INJ 1 MG VIAL SQ PRN (15:07)
[2021-05-29] MEDS ORDERED: GLUCOSE 10 TABS/TUBE PO PRN (15:07)
[2021-05-29] MEDS ORDERED: GLUCOSE 40% GEL 15 GM TUBE PO PRN (15:07)
[2021-05-29] MEDS ORDERED: CARBOHYDRATES FOR HYPOGLYCEMIA PO PRN (15:07)
[2021-05-29] MEDS ORDERED: PHARMACY GLYCEMIC MGMT CONSULT PRN (15:07)
[2021-05-29] MEDS ORDERED: ACETAMINOPHEN 325 MG TAB PO PRN (15:07)
[2021-05-29] MEDS ORDERED: VANCOMYCIN CONSULT ACTIVE PRN (15:10)
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
--- NOTE | 2021-05-29 15:39 | Pharmacy Report ---
Pharmacy Vanc AUC Short Note - Date of Service May 29, 2021 - Assessment & Plan Assessment 70 year old M receiving IV vancomycin for treatment of LLE cellulitis. Pertinent microbiologic data includes: blood culture pending; wound culture planned. Day # 1 of antimicrobial therapy. Plan Vancomycin * Loading dose: 2000 mg IV x 1 * Maintenance dose: 1500 mg IV q24h * AUC/SURJIT is the preferred PK/PD target for vancomycin * AUC guided dosing is effective and associated with decreased risk of nephrotoxicity compared to traditional trough targets * Trough level of 15.5 mcg/mL is predicted to achieve target AUC/SURJIT of 400-600 mg/L.hr and may be associated with a 11 % risk of nephrotoxicity * Trough or random level would be obtained prior to the 4th dose or sooner if renal function changes Cefepime * 2g IV q12h - appropriate Pharmacy will continue to follow and will adjust dose/frequency as necessary. Thank you.
[2021-05-29 15:53] LABS: Troponin I High Sensitivity 23.5 pg/ml (0-20)
[2021-05-29 15:56] LABS: BUN Creatinine Ratio 17.9 (10-20); Calcium 8.7 mg/dl (8.5-10.1); Creatinine Clr Calc Pharmacy 54.3 ml/min; Est GFR (African American) 56.5 ml/min; Est GFR (Non-African American) 48.8 ml/min; Magnesium 2.5 mg/dl (1.7-2.4); Potassium 5.7 mmol/L (3.5-5.1)
[2021-05-29] MEDS ORDERED: VANCOMYCIN HCL 2,000 MG in SODIUM CHLORIDE 0.9% 500 ML IV ONE (16:00)
[2021-05-29] MEDS ORDERED: STAT IV STA (16:20)
[2021-05-29] MEDS: CEFEPIME 2,000 MG in SYRINGE 0 ML IV SCH (16:20)
[2021-05-29] MEDS ORDERED: DEXTROSE 50% 50 ML SYRINGE IV ONE (16:20)
[2021-05-29] MEDS: ACETAMINOPHEN 500 MG TAB PO SCH ×2 (16:21→22:55)
[2021-05-29] MEDS ORDERED: INSULIN HUMAN REGULAR PER UNIT 10 UNITS in SYRINGE 9.9 ML IV ONE (16:30)
[2021-05-29] MEDS ORDERED: CALCIUM GLUCONATE 10% 1,000 MG in DEXTROSE 5% 50 ML IV ONE (16:30)
[2021-05-29] MEDS: INSULIN ASPART PER UNIT SC SCH ×2 (17:09→20:58)
[2021-05-29] MEDS ORDERED: INSULIN DETEMIR FLEXPEN/FLEX TOUCH 100 UNITS/ML 3ML SC ONE (17:30)
[2021-05-29] MEDS ORDERED: KETOROLAC TROMETHAMINE 15 MG/ML VIAL IV ONE (19:30)
[2021-05-29] MEDS: carvediloL 3.125 MG TAB PO SCH (21:04)
[2021-05-29] MEDS: HEPARIN SOD 5,000 UNIT/0.5 ML VIAL SQ SCH ×2 (21:04→21:08)
[2021-05-29] MEDS: traZODone HCL 50 MG TAB PO SCH (21:04)
[2021-05-29 21:17] LABS: BUN Creatinine Ratio 19.3 (10-20); Calcium 8.2 mg/dl (8.5-10.1); Creatinine Clr Calc Pharmacy 54.3 ml/min; Est GFR (African American) 56.5 ml/min; Est GFR (Non-African American) 48.8 ml/min
[2021-05-30] MEDS: CEFEPIME 2,000 MG in SYRINGE 0 ML IV SCH ×2 (04:05→17:44)
[2021-05-30] MEDS ORDERED: HYDROmorphone INJ 0.5 MG/0.5 ML SYR IV PRN (04:22)
[2021-05-30] MEDS ORDERED: ACETAMINOPHEN W/CODEINE #3 1 TAB PO PRN (04:22)
[2021-05-30] MEDS: PANTOprazole 40 MG TAB PO SCH (06:01)
[2021-05-30] MEDS: ACETAMINOPHEN 500 MG TAB PO SCH ×3 (06:30→23:00)
[2021-05-30 07:45] LABS: Estimated Average Glucose 214 mg/dl; Hemoglobin A1C 9.1 % (4.5-5.6)
[2021-05-30] MEDS: INSULIN ASPART PER UNIT SC SCH ×4 (07:45→20:21)
[2021-05-30] MEDS: carvediloL 3.125 MG TAB PO SCH ×2 (07:56→20:21)
[2021-05-30] MEDS: traZODone HCL 50 MG TAB PO SCH ×2 (07:57→20:21)
[2021-05-30] MEDS: ISOSORBIDE MONO EXTENDED REL 30 MG TABCR PO SCH (07:57)
[2021-05-30] MEDS: HEPARIN SOD 5,000 UNIT/0.5 ML VIAL SQ SCH ×2 (09:01→20:21)
[2021-05-30] MEDS ORDERED: FUROSEMIDE 40 MG/4 ML VIAL IV ONE (13:17)
--- NOTE | 2021-05-30 13:24 | Cardiology Progress Note ---
Date of Service May 30, 2021 Assessment & Plan (1) Acute on chronic HFrEF (heart failure with reduced ejection fraction): (2) Hyperkalemia: (3) Aortic stenosis: (4) Cellulitis of left lower extremity: Plan: -Pt non cooperative with echo. LVEF 30%, unable to complete assessment for , at least Mild noted on limited 2 D evaluation. -Potassium trending down. Furosemide 40 mg IV now, and BID tomorrow. Continue Coreg, Imdur. Holding lisinopril due to relative low BP. SQ heparin DVT prophylaxis. Admission and Anticipated Discharge Date Admission Date: May 29, 2021 Subjective Pt seen in follow up. Sitting upright in chair. No cardiac complaints. Telemetry reveals SR in the 60s with first degree AVB. Physical Exam Constitutional: no acute distress Respiratory: normal respiratory effort, lungs clear to auscultation Cardiovascular: Rate/Rhythm: regular rate Heart Sounds: + murmur (1/6 SM) Extremities: + edema (3+ edema, erythema, ulcers, blisters) Gastrointestinal (Abdomen): normal bowel sounds, soft, nontender, no hepatosplenomegaly Neurologic: PERRL, EOMI, accommodation nl, no face palsy, no dysarthria Results & Data ([facility]) Vital Signs (Past 12 Hours) Vital Signs Temp Pulse Resp BP Pulse Ox 05/30/21 11:25 36.5 C 56 L 16 116/69 100 05/30/21 06:30 36.5 C 64 18 130/74 100 Diagnostic Findings Cardiac Enzymes 05/29/21 05/29/21 05/29/21 Range/Units 15:12 15:12 17:25 Troponin I High Sens 23.5 H 20.7 H (0-20) pg/ml B-Natriuretic Peptide > 4700 H (0-100) pg/ml Coagulation 05/29/21 Range/Units 15:12 B-Natriuretic Peptide > 4700 H (0-100) pg/ml Comprehensive Metabolic Panel 05/29/21 05/29/21 Range/Units 15:12 20:44 Sodium 133 L 134 L (136-145) mmol/L Potassium 5.7 H 5.0 (3.5-5.1) mmol/L Chloride 98 101 (98-107) mmol/L Carbon Dioxide 25 24 (21-32) mmol/L BUN 26 H 28 H (6-23) mg/dl Creatinine 1.45 H 1.45 H (0.6-1.4) mg/dl Glucose 177 H 100 H (70-99(Fasting)) mg/dl Calcium 8.7 8.2 L (8.5-10.1) mg/dl Intake and Output 05/29/21 05/30/21 05/30/21 22:59 06:59 14:59 Intake Total 600 / 1220 120 / 1220 Output Total 950 / 1100 150 / 1100 Balance -350 / 120 -30 / 120 Intake: IV 600 / 1100 Calcium Gluconate 10% 1,000 mg 60 / 60 In Dextrose 5% 50 ml @ 240 mls/ hr IV TODAY@1630 ONE Rx#: [id number] Vancomycin HCl 2,000 mg In 540 / 540 Sodium Chloride 0.9% 500 ml @ 200 mls/hr IV NOW@1600 ONE Rx#: [id number] Oral 120 / 120 Output: Urine Amount (Catheter) 950 / 1100 150 / 1100 Crandall/Indwelling 950 / 1100 150 / 1100 Other: Other Intake Source SIPS
--- NOTE | 2021-05-30 13:57 | Pharmacy Report ---
Pharmacy Glycemic Short Note 2 - Date of Service May 30, 2021 - Glycemic Short BSG Results (Last 24 hours): 05/29/21 05/29/21 05/29/21 15:12 15:12 20:03 Glucose 177 H POC Glucose 173 H 105 H 05/29/21 05/30/21 05/30/21 20:44 07:39 11:53 Glucose 100 H POC Glucose 75 72 OUTPATIENT ANTIDIABETIC REGIMEN: * glipizide 2.5 mg qd * A1c 9.1% ASSESSMENT: * Patient admitted with complaints of diarrhea, patient also has lower extremity cellulitis * Patient received 10 units of levemir with dinner yesterday, BSGs in the 70s today for lunch and dinner, type 2 diet ordered * Will hold on additional levemir for now, add scale for pm PLAN FOR INPATIENT GLYCEMIC CONTROL: * Hold outpatient oral diabetes medications * Basal insulin * Levemir 0-5 units QPM * Bolus insulin * NovoLog per scale ACHS or Q6hrs while NPO * Goal Range: Low 110 mg/dL - High 140 mg/dL * Correction Factor: 30 mg/dL/unit * Nutritional / Prandial insulin per carb ratio of 1 unit per 10 grams CHO consumed
--- NOTE | 2021-05-30 15:10 | Hospitalist Progress Note ---
Date of Service May 30, 2021 Assessment & Plan (1) Acute on chronic HFrEF (heart failure with reduced ejection fraction): (2) Cellulitis of left lower extremity: Plan: 70 yo male with acute on chronic CHF, acute diarrhea, LLE cellulitis, and unfortunate home living conditions who presented to the ED 05/29 with multiple concerns. He is being managed for the following: (1) Acute on chronic systolic CHF (congestive heart failure): (2) Bilateral lower extremity edema: Last Echo 11/15/21- showed EF 50-55%, mild LVH, and mild . Repeat Echo At presentation, BNP >4700, Trop flat trended at 23-->20, no chest pain, EKG w/ SR w/ 1st degree AV block. B/L LE edematous with L>R (Venous Dopple BLE negative for DVT). Admitting CXR: Cardiomegaly. Pulmonary vascular congestion with possible mild pulmonary edema. 05/30 ECHO; technically limited d/t patient's lack of cooperation. EF 30%, mod to severe global hypokinesis of left ventricle. c/w med/tele. Cardio on board, iv lasix, appreciate recs c/w home coreg, imdur; lisinopril held d/t soft BP Replete and monitor electrolytes as appropriate. #. Cellulitis LLE Wounds were covered in feces, urine, dirt upon admission. Continue wound care. Wound care nurse on board Appeared to have cellulitis of LLE at presentation. c/w cefepime 05/29 and vanco 05/29 Follow clinically, culture reports. #. Open wound of left lower extremity with complication: #. Open wound of right lower extremity: #. Left hip pain: Left hip pain x 1 week [employer] s/p fall. Patient unable to ambulate well secondary to this fall. Admitting CT Hip with no fracture/dislocation within the left hip. Mild to mod left hip OA. Admitting CPK wnl PT/OT while inpatient. WOCN on board. (7) Hyperkalemia: Plan: Monitor, getting better. (8) Diarrhea: Plan: Stool studies negative upon presentation. ? Medication related vs other Patient is eating and drinking well. Continue diabetic, low sodium, lactose free diet Pt reports improving diarrhea. (9) CKD (chronic kidney disease) stage 3, GFR 30-59 ml/min: Plan: Continue to monitor BMP with Lasix, abx. Check in AM (10) Diabetes type 2, uncontrolled: Plan: Patient refuses baseline insulin. Insulin sliding scale ordered A1C reordered Diabetic diet (11) DINO (obstructive sleep apnea): Plan: Continue CPAP (12) History of GI bleed: (13) History of CVA (cerebrovascular accident): Plan: Patient hasn't been taking ASA 81 mg in the past few months due to history of GI bleed. Continue to hold while inpatient Hgb stable (14) Urinary incontinence: Plan: Place Crandall catheter UA not s/o UTI (15) DVT prophylaxis: SQ Heparin 5,000 Q 12h PT/OT, CM to assist with DC planning. Admission and Anticipated Discharge Date Admission Date: May 29, 2021 Subjective Patient seen and examined at bedside for follow-up of acute on chronic heart failure and left lower extremity along with multiple other concerns. Patient was lying in bed, on 2 L nasal cannula oxygen, sleeping, NAD, no new acute events overnight. Patient reports improving diarrhea, also reports having bloating sensation with eating food, at times. Patient already on PPI. Patient reports no fever/headache/dizziness/chest pain/palpitations/belly pain/other review of symptoms. Physical Exam Physical Exam: GENERAL: Alert and oriented x3. NAD, on 2L NC O2. HEENT: No pallor, no icterus. Pupils equal, round and reactive to light. Oral mucosa moist. NECK: No JVD, no neck masses. HEART: S1 and S2 heard. Regular rate and rhythm. systolic mumur at aortic area, no gallop. RESPIRATORY SYSTEM: Normal AP diameter. No accessory muscle use. No wheezing, no crackles. ABDOMEN: Soft, bowel sounds present, nontender, no distention. CENTRAL NERVOUS SYSTEM: No facial droop. Speech is clear. Obeys simple commands. Moves extremities. EXTREMITIES: 1-2 + BLE edema, erythema LLE > RLE but non tender , Multiple clean dressings without soakage BLE noted. Results & Data Results & Data ([facility]) Vital Signs (Past 12 Hours) Vital Signs Temp Pulse Pulse Resp BP Pulse Ox 05/30/21 14:09 100 05/30/21 11:25 36.5 C 56 L 16 116/69 100 05/30/21 08:00 68 05/30/21 06:30 36.5 C 64 18 130/74 100
--- NOTE | 2021-05-30 15:17 | Electrocardiogram Report ---
Test Reason : Blood Pressure : / mmHG Vent. Rate : 078 BPM Atrial Rate : 078 BPM P-R Int : 346 ms QRS Dur : 090 ms QT Int : 398 ms P-R-T Axes : 059 -26 126 degrees QTc Int : 453 ms Sinus rhythm with 1st degree A-V block Inferior infarct (cited on or before 17-DEC-2020) Abnormal ECG When compared with ECG of 10-MAY-2021 02:18, No significant change was found Confirmed by Lionel Luther ([id number]) on 05/30/2021 3:17:04 PM Referred By: REFERRED SELF Confirmed By:Lionel Luther
[2021-05-30] MEDS ORDERED: INSULIN DETEMIR FLEXPEN/FLEX TOUCH 100 UNITS/ML 3ML SC ONE (17:30)
[2021-05-30] MEDS: CALCIUM CARBONATE 500 MG CHEWABLE TAB PO SCH ×2 (17:43→23:01)
[2021-05-30] MEDS: VANCOMYCIN HCL 1,500 MG in SODIUM CHLORIDE 0.9% 500 ML IV SCH (17:44)
[2021-05-31] MEDS: CEFEPIME 2,000 MG in SYRINGE 0 ML IV SCH ×2 (03:01→15:57)
[2021-05-31] MEDS: FUROSEMIDE 40 MG/4 ML VIAL IV SCH ×2 (06:18→08:30)
[2021-05-31] MEDS: PANTOprazole 40 MG TAB PO SCH (06:18)
[2021-05-31] MEDS: ACETAMINOPHEN 500 MG TAB PO SCH ×3 (06:30→22:33)
[2021-05-31] MEDS: ISOSORBIDE MONO EXTENDED REL 30 MG TABCR PO SCH (08:20)
[2021-05-31] MEDS: CALCIUM CARBONATE 500 MG CHEWABLE TAB PO SCH ×3 (08:21→23:12)
[2021-05-31] MEDS: carvediloL 3.125 MG TAB PO SCH ×2 (08:21→20:21)
[2021-05-31] MEDS: traZODone HCL 50 MG TAB PO SCH ×2 (08:21→20:21)
[2021-05-31] MEDS: HEPARIN SOD 5,000 UNIT/0.5 ML VIAL SQ SCH ×2 (08:22→20:20)
[2021-05-31] MEDS: INSULIN ASPART PER UNIT SC SCH ×4 (09:35→20:28)
[2021-05-31 12:14] LABS: Hematocrit (blood only) 36.9 % (42-52); Hemoglobin 11.9 g/dL (14.0-18.0); Mean Corpuscular Hemoglobin 25.5 pg (25-34); Mean Corpuscular Hgb Conc 32.2 g/dL (32-36); Mean Platelet Volume 9.8 fL (7.4-10.4); Platelet Count 195 K/uL (130-400); RDW Coefficient of Variation 17.7 % (11.5-14.5); RDW Standard Deviation 50.5 fL (36.4-46.3); Red Blood Count 4.67 M/uL (4.7-6.1); White Blood Count 5.89 K/uL (4.8-10.8)
[2021-05-31 12:32] LABS: BUN Creatinine Ratio 23.8 (10-20); Calcium 8.3 mg/dl (8.5-10.1); Creatinine Clr Calc Pharmacy 48.9 ml/min; Est GFR (African American) 50.2 ml/min; Est GFR (Non-African American) 43.3 ml/min; Magnesium 2.3 mg/dl (1.7-2.4); Phosphorus 3.6 mg/dl (2.5-4.9); Potassium 4.1 mmol/L (3.5-5.1)
--- NOTE | 2021-05-31 15:29 | Cardiology Progress Note ---
Date of Service May 31, 2021 Assessment & Plan (1) Acute on chronic HFrEF (heart failure with reduced ejection fraction): (2) Hyperkalemia: (3) Aortic stenosis: (4) Cellulitis of left lower extremity: Plan: -Pt non cooperative with echo. LVEF 30%, unable to complete assessment for , at least Mild noted on limited 2 D evaluation. Fluid balance negative 2.6 L in last 24Hr. BUN, creatinine trending up. Will hold PM dose of furosemide. Await am chem panel results prior to next diuretic dose. SQ heparin DVT prophylaxis. Admission and Anticipated Discharge Date Admission Date: May 29, 2021 Subjective Pt seen in follow up. Edema improving. Telemetry reveals SR in the 60s. Physical Exam Constitutional: no acute distress Respiratory: normal respiratory effort, lungs clear to auscultation Cardiovascular: Rate/Rhythm: regular rate Heart Sounds: + murmur (1/6 SM) Extremities: + edema (1+ bilateral LE edema. Wounds dressed) Gastrointestinal (Abdomen): normal bowel sounds, soft, nontender, no hepatosplenomegaly Neurologic: PERRL, EOMI, accommodation nl, no face palsy, no dysarthria Results & Data ([facility]) Vital Signs (Past 12 Hours) Vital Signs Temp Pulse Pulse Resp BP Pulse Ox 05/31/21 11:13 36.3 C L 68 19 129/70 95 05/31/21 08:42 58 L 05/31/21 07:33 37 C 55 L 20 111/62 100 05/31/21 06:18 63 137/77 96 05/31/21 04:00 36.7 C 71 18 132/72 93
[2021-05-31] MEDS: VANCOMYCIN HCL 1,500 MG in SODIUM CHLORIDE 0.9% 500 ML IV SCH (16:04)
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
[2021-05-31] MEDS ORDERED: INSULIN DETEMIR FLEXPEN/FLEX TOUCH 100 UNITS/ML 3ML SC ONE (21:00)
[2021-06-01] MEDS: CEFEPIME 2,000 MG in SYRINGE 0 ML IV SCH ×2 (04:55→15:34)
[2021-06-01] MEDS: PANTOprazole 40 MG TAB PO SCH (06:15)
[2021-06-01 08:18] LABS: Hematocrit (blood only) 35.6 % (42-52); Hemoglobin 11.1 g/dL (14.0-18.0); Mean Corpuscular Hemoglobin 24.7 pg (25-34); Mean Corpuscular Hgb Conc 31.2 g/dL (32-36); Mean Corpuscular Volume 79.3 fL (80-100); Mean Platelet Volume 9.9 fL (7.4-10.4); Platelet Count 200 K/uL (130-400); RDW Coefficient of Variation 17.7 % (11.5-14.5); RDW Standard Deviation 50.6 fL (36.4-46.3); Red Blood Count 4.49 M/uL (4.7-6.1); White Blood Count 5.54 K/uL (4.8-10.8)
[2021-06-01 08:34] LABS: BUN Creatinine Ratio 23.3 (10-20); Calcium 8.2 mg/dl (8.5-10.1); Creatinine Clr Calc Pharmacy 52.2 ml/min; Est GFR (African American) 54.3 ml/min; Est GFR (Non-African American) 46.8 ml/min
[2021-06-01] MEDS: HEPARIN SOD 5,000 UNIT/0.5 ML VIAL SQ SCH ×2 (08:34→19:57)
[2021-06-01] MEDS: carvediloL 3.125 MG TAB PO SCH ×2 (08:35→19:57)
[2021-06-01] MEDS: ISOSORBIDE MONO EXTENDED REL 30 MG TABCR PO SCH (08:35)
[2021-06-01] MEDS: ACETAMINOPHEN 500 MG TAB PO SCH ×3 (08:38→23:24)
[2021-06-01] MEDS: traZODone HCL 50 MG TAB PO SCH ×2 (08:38→19:59)
[2021-06-01] MEDS: CALCIUM CARBONATE 500 MG CHEWABLE TAB PO SCH (08:39)
[2021-06-01] MEDS: INSULIN ASPART PER UNIT SC SCH ×4 (09:09→20:05)
[2021-06-01] MEDS: FUROSEMIDE 40 MG/4 ML VIAL IV SCH (09:11)
[2021-06-01] MEDS ORDERED: VANCOMYCIN TROUGH ONE (15:30)
--- NOTE | 2021-06-01 16:55 | Cardiology Progress Note ---
Date of Service June 01, 2021 Assessment & Plan (1) Acute on chronic HFrEF (heart failure with reduced ejection fraction): (2) Hyperkalemia: (3) Aortic stenosis: (4) Cellulitis of left lower extremity: Plan: -Pt non cooperative with echo. LVEF 30%, unable to complete assessment for , at least Mild noted on limited 2 D evaluation. Furosemide dose reduced to 40 mg once daily. SQ heparin DVT prophylaxis. Admission and Anticipated Discharge Date Admission Date: May 29, 2021 Subjective Pt in good spirits . Edema improving. Physical Exam Constitutional: no acute distress Respiratory: normal respiratory effort, lungs clear to auscultation Cardiovascular: Rate/Rhythm: regular rate Heart Sounds: + murmur (1/6 SM) Extremities: + edema (1+ bilateral LE edema. Wounds dressed) Gastrointestinal (Abdomen): normal bowel sounds, soft, nontender, no hepatosplenomegaly Neurologic: PERRL, EOMI, accommodation nl, no face palsy, no dysarthria Results & Data ([facility]) Vital Signs (Past 12 Hours) Vital Signs Temp Pulse Pulse Resp BP Pulse Ox 06/01/21 15:50 36.5 C 77 20 157/81 H 95 06/01/21 15:47 68 06/01/21 07:51 36.6 C 70 16 135/72 95 06/01/21 07:21 52 L 06/01/21 06:40 36.6 C 64 20 149/78 H 96 Laboratory Results CBC 06/01/21 Range/Units 07:25 WBC 5.54 (4.8-10.8) K/uL RBC 4.49 L (4.7-6.1) M/uL Hgb 11.1 L (14.0-18.0) g/dL Hct 35.6 L (42-52) % Plt Count 200 (130-400) K/uL Comprehensive Metabolic Panel 06/01/21 Range/Units 07:25 Sodium 134 L (136-145) mmol/L Potassium 4.0 (3.5-5.1) mmol/L Chloride 101 (98-107) mmol/L Carbon Dioxide 24 (21-32) mmol/L BUN 35 H (6-23) mg/dl Creatinine 1.50 H (0.6-1.4) mg/dl Glucose 117 H (70-99(Fasting)) mg/dl Calcium 8.2 L (8.5-10.1) mg/dl Intake and Output 06/01/21 06/01/21 06/01/21 06:59 14:59 22:59 Intake Total 100 / 1050 360 / 360 0 / 360 Output Total 350 / 3050 1000 / 1000 Balance -250 / -2000 -640 / -640 0 / -640 Intake: IV 0 / 0 Vancomycin HCl 1,500 mg In 0 / 0 Sodium Chloride 0.9% 500 ml @ 200 mls/hr IV Q24H [facility] Rx#: [id number] Oral 100 / 520 360 / 360 Output: Urine Amount (Catheter) 350 / 3050 1000 / 1000 [place]/Indwelling 350 / 3050 1000 / 1000 Other: Weight 96 kg
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
[2021-06-01] MEDS: VANCOMYCIN HCL 1,250 MG in SODIUM CHLORIDE 0.9% 250 ML IV SCH (21:26)
[2021-06-01] MEDS: VANCOMYCIN HCL 1,500 MG in SODIUM CHLORIDE 0.9% 500 ML IV SCH (21:35)
--- NOTE | 2021-06-01 21:55 | Pharmacy Report ---
Pharmacy Vanc AUC Short Note - Date of Service June 01, 2021 - Assessment & Plan Assessment 70 year old M receiving IV vancomycin for treatment of LLE cellulitis. Day # 4 of antimicrobial therapy. Plan Vancomycin * AUC/SURJIT is the preferred PK/PD target for vancomycin * AUC guided dosing is effective and associated with decreased risk of nephrotoxicity compared to traditional trough targets * Trough came back at ~20 mcg/ml, correlating to AUC >600, therefore decreased to vancomycin 1250 mg iv q 24 hrs * This dosing is estimated to produce a trough level of 18 mcg/mL is predicted to achieve target AUC/SURJIT of 400-600 mg/L.hr and may be associated with a 15 % risk of nephrotoxicity * Plan to recheck level in next 2-3 days if continued Pharmacy will continue to follow and will adjust dose/frequency as necessary. Thank you.
[2021-06-02] MEDS: PANTOprazole 40 MG TAB PO SCH (05:39)
[2021-06-02] MEDS: CEFEPIME 2,000 MG in SYRINGE 0 ML IV SCH ×3 (06:01→17:16)
[2021-06-02] MEDS: carvediloL 3.125 MG TAB PO SCH ×2 (08:33→21:17)
[2021-06-02] MEDS: ACETAMINOPHEN 500 MG TAB PO SCH ×3 (08:33→23:09)
[2021-06-02] MEDS: ISOSORBIDE MONO EXTENDED REL 30 MG TABCR PO SCH (08:34)
[2021-06-02] MEDS: HEPARIN SOD 5,000 UNIT/0.5 ML VIAL SQ SCH ×2 (08:34→20:26)
[2021-06-02] MEDS: traZODone HCL 50 MG TAB PO SCH ×2 (08:35→21:17)
[2021-06-02] MEDS: FUROSEMIDE 40 MG/4 ML VIAL IV SCH (08:35)
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
[2021-06-02] MEDS: INSULIN ASPART PER UNIT SC SCH ×4 (08:58→21:17)
[2021-06-02] MEDS: ADVANCED PROBIOTIC 1250 MG CAPSULE PO SCH (11:40)
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
--- NOTE | 2021-06-02 13:23 | Pharmacy Report ---
Pharmacy Glycemic Short Note 2 - Date of Service June 02, 2021 - Glycemic Short BSG Results (Last 24 hours): 06/01/21 06/01/21 06/02/21 16:33 20:03 07:32 POC Glucose 161 H 146 H 116 H 06/02/21 11:38 POC Glucose 108 H OUTPATIENT ANTIDIABETIC REGIMEN: * glipizide 2.5 mg qd * HbA1c: 9.1% (05/29/21) ASSESSMENT: * Mr Mancuso's BSGs have been well-controlled with very little insulin requirements. * PO intake appears to be minimal. * No changes required at this time. Continue Novolog. PLAN FOR INPATIENT GLYCEMIC CONTROL: * Hold outpatient oral diabetes medications * Basal insulin * none required at this time * Bolus insulin * NovoLog per scale ACHS or Q6hrs while NPO * Goal Range: Low 110 mg/dL - High 140 mg/dL * Correction Factor: 30 mg/dL/unit * Nutritional / Prandial insulin per carb ratio of 1 unit per 10 grams CHO consumed
[2021-06-02] MEDS: VANCOMYCIN HCL 1,250 MG in SODIUM CHLORIDE 0.9% 250 ML IV SCH (21:16)
[2021-06-03] MEDS: ACETAMINOPHEN 500 MG TAB PO SCH ×5 (01:13→23:18)
[2021-06-03] MEDS: PANTOprazole 40 MG TAB PO SCH (04:17)
[2021-06-03] MEDS: CEFEPIME 2,000 MG in SYRINGE 0 ML IV SCH ×2 (04:17→15:45)
[2021-06-03] MEDS: carvediloL 3.125 MG TAB PO SCH ×2 (07:39→20:33)
[2021-06-03] MEDS: FUROSEMIDE 40 MG/4 ML VIAL IV SCH (07:39)
[2021-06-03] MEDS: ISOSORBIDE MONO EXTENDED REL 30 MG TABCR PO SCH (07:40)
[2021-06-03] MEDS: HEPARIN SOD 5,000 UNIT/0.5 ML VIAL SQ SCH ×2 (07:40→20:30)
[2021-06-03] MEDS: traZODone HCL 50 MG TAB PO SCH ×2 (07:40→20:35)
[2021-06-03] MEDS: ADVANCED PROBIOTIC 1250 MG CAPSULE PO SCH (07:40)
[2021-06-03] MEDS: INSULIN ASPART PER UNIT SC SCH ×4 (08:31→20:33)
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
[2021-06-03] MEDS ORDERED: VANCOMYCIN TROUGH ONE (21:30)
[2021-06-03] MEDS: VANCOMYCIN HCL 1,250 MG in SODIUM CHLORIDE 0.9% 250 ML IV SCH (22:21)
[2021-06-04] MEDS: CEFEPIME 2,000 MG in SYRINGE 0 ML IV SCH (04:10)
[2021-06-04] MEDS: PANTOprazole 40 MG TAB PO SCH (06:05)
[2021-06-04] MEDS: ADVANCED PROBIOTIC 1250 MG CAPSULE PO SCH (08:21)
[2021-06-04] MEDS: ISOSORBIDE MONO EXTENDED REL 30 MG TABCR PO SCH (08:21)
[2021-06-04] MEDS: carvediloL 3.125 MG TAB PO SCH (08:21)
[2021-06-04] MEDS: HEPARIN SOD 5,000 UNIT/0.5 ML VIAL SQ SCH ×2 (08:21→08:32)
[2021-06-04] MEDS: INSULIN ASPART PER UNIT SC SCH ×2 (08:22→12:46)
[2021-06-04] MEDS: FUROSEMIDE 40 MG/4 ML VIAL IV SCH (08:22)
[2021-06-04] MEDS: ACETAMINOPHEN 500 MG TAB PO SCH (08:27)
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
[2021-06-04] MEDS: traZODone HCL 50 MG TAB PO SCH (09:22)
[2021-06-04 10:06] LABS: Hematocrit (blood only) 38.5 % (42-52); Hemoglobin 11.9 g/dL (14.0-18.0); Mean Corpuscular Hemoglobin 25.2 pg (25-34); Mean Corpuscular Hgb Conc 30.9 g/dL (32-36); Mean Corpuscular Volume 81.4 fL (80-100); Mean Platelet Volume 9.8 fL (7.4-10.4); Platelet Count 221 K/uL (130-400); RDW Coefficient of Variation 18.2 % (11.5-14.5); RDW Standard Deviation 53.6 fL (36.4-46.3); Red Blood Count 4.73 M/uL (4.7-6.1); White Blood Count 7.11 K/uL (4.8-10.8)
[2021-06-04 10:32] LABS: BUN Creatinine Ratio 17.6 (10-20); Calcium 8.6 mg/dl (8.5-10.1); Creatinine Clr Calc Pharmacy 55.4 ml/min; Est GFR (African American) 61.1 ml/min; Est GFR (Non-African American) 52.7 ml/min; Magnesium 1.9 mg/dl (1.7-2.4); Phosphorus 2.1 mg/dl (2.5-4.9); Potassium 3.7 mmol/L (3.5-5.1)
--- NOTE | 2021-06-04 12:47 | Discharge Summary ---
Date of Service June 04, 2021 Admission HPI Per Admitting Provider Patient is a 70 yo male with PMHx of uncontrolled DM, HFrEF, CVA, CKD Stage III, DINO, and paranoid personality disorder who presented to the ED via EMS today for concerns of diarrhea x 48 hours. The patient states that he wouldn't have come in if it wasn't for the fact that he couldn't stop going to the bathroom. He states it has been "pouring out" for 48 hours. He has been incontinent of both stool and urine. He has chronic urinary incontinence x 2 years or more per the patient. Per outpatient and EMS reports, the patient's home conditions are 'deplorable'. Home health records note that the patient's home has urine and feces covering the floor, recliner, etc. There was urine actively dripping off of the patient's recliner and wound dressings the last time they attempted to clean his wounds. Upon presentation to the ED, the patient had wound dressings in place on the lower extremities which were saturated with urine, feces, and dirt. He states that his legs have been swollen for at least 2 months, and he has had open wounds for quite some time. At the time of my exam, the patient looked comfortable. He stated that he currently has no pain. The nursing staff notes that he initially had SOB for which he was requesting O2. The O2 was placed on the patient despite SaO2% >95% consistently. He notes that he has not taken his glimepiride in 2 days as he feels this was a contributing factor to his diarrhea. Diarrhea has not improved. Stool studies done in the ED and thus far negative. Labs revealed hyperkalemia with K+ 5.6. Creatinine 1.4 (baseline outpatient 1.4- 05/03/21). WBC count normal. Hgb 12.7 (last outpt hgb 11.9 05/03/21). LFTs within normal other than slightly elevated Alk Phos 179. Blood cxs drawn and pending. Patient is noncompliant with last A1C 12.1 in December. He has a Free Style [employer] and states his BS has been controlled at home (between 120-150). Pt has no abdominal pain. No N/V. No blood in stool. He does have hx of GI bleed. He notes that this is when his ASA 81 mg was stopped, though from his outpatient records he was told to continue ASA 81 mg and stop full dose which he was previously taking. He has not been taking ASA recently. Patient also notes that he is unable to walk well currently because 1 week ago, he was transported to [place] ED by [facility], and on the way home, he was dropped onto his left hip/knees. He has since been immobile and his left hip has been painful. Of note, his 90 yo mother also lives in the home with him. Admission Exam Per Admitting Provider Constitutional: + obese, + disheveled and cooperative; n o acute distress Eyes: PERRL, conjunctivae normal, anicteric sclerae ENMT: external ear and nose normal, oropharynx normal Neck: trachea midline, no thyromegaly Respiratory: Auscultation: + diminished lung sounds ( B/L bases); no crackles, no rales, no rhonchi and no wheezes Cardiovascular: Rate/Rhythm: regular rate and regular rhythm Heart Sounds: + murmur (systolic) Extremities: + edema (Severe edema B/L LE and feet. 3+ LLE, 2+ RLE) Distant heart sounds Gastrointestinal (Abdomen): normal bowel sounds, soft, nontender, no hepatosplenomegaly Skin: Multiple superficial appearing open wounds of the LLE and RLE. Anterior tibial surface and Psychiatric: Orientation: alert and oriented x 3 Apperance: + disheveled Eye Contact: good eye contact Affect: euthymic affect Principal Diagnosis Acute on chronic systolic CHF (congestive heart failure) Bilateral lower extremity edema Cellulitis LLE Open wound of left and right lower extremity Discharge Exam GENERAL: Alert and oriented x3. NAD, on RA. HEENT: No pallor, no icterus.EOMI. Pupils equal, round and reactive to light. Oral mucosa moist. NECK: No JVD, no neck masses. HEART: S1 and S2 heard. Regular rate and rhythm. systolic murmur at aortic area, no gallop. RESPIRATORY SYSTEM: Normal AP diameter. No accessory muscle use. No wheezing, no crackles. ABDOMEN: Soft, bowel sounds present, nontender, no distention. NEURO: No facial droop. Speech is clear. Obeys simple commands. Moves extremities. PSYCH: Not able to answer all questions appropriately. Continues to be fixated on his diet and medications, which he believes are not working for him. EXTREMITIES: 1 + BLE edema (improved), erythema LLE > RLE but non tender (improved), Burn scar noted in the back. Discharge Data Allergies Allergy/AdvReac Type Severity Reaction Status Date / Time lisinopril Allergy Unconscious Verified 05/29/21 07:47 oxycodone Allergy "stops my Verified 05/29/21 07:47 breathing" tramadol Allergy "stops my Verified 05/29/21 07:47 breathing" amlodipine [From Norvasc] AdvReac Confusion Verified 05/29/21 15:09 insulin glargine AdvReac muscle Verified 05/29/21 07:47 [From Lantus U-100 Insulin] spasms metformin AdvReac muscle Verified 05/29/21 07:47 spasms metoprolol AdvReac Hypertensio Verified 05/29/21 15:09 n sitagliptin [From Januvia] AdvReac makes me Verified 05/29/21 07:47 just vibrate Kqousea-IFP-SgV Reductase AdvReac "it Verified 05/29/21 07:47 Inhibitor destroys my organs Consultations 05/29/21 12:38 ED Decision to Admit Stat 05/29/21 15:07 Consult Cardiology Routine 06/02/21 13:23 Consult Infectious Diseases Routine Ordered Studies 05/29/21 12:58 US venous doppler LE BI Routine IMPRESSION: No DVT within the right or left lower extremity. 05/29/21 13:02 CT hip LT wo con Routine FINDINGS: No fracture or dislocation within the left hip. The visualized pelvic bones are intact. Stable small sclerotic foci within the left femoral head and ischial tuberosity likely representing bone islands. Mild to moderate cartilage space narrowing and marginal osteophytes within the left hip consistent with degenerative change. No significant hip effusion. Moderate vascular calcifications are noted. The prostate gland is enlarged. Subcutaneous trace edema and skin thickening within the left lateral hip with a probable soft tissue contusion. No hematoma identified. IMPRESSION: 1. No fracture or dislocation within the left hip. 2. Mild to moderate left hip osteoarthritis. Diabetes Follow up Diabetes Follow-up Needed for HgbA1c >9% Hospital Course (1) Acute on chronic HFrEF (heart failure with reduced ejection fraction): (2) Cellulitis of left lower extremity: 70 yo M with acute on chronic CHF, acute diarrhea, LLE cellulitis, and unfortunate home living conditions who presented to the ED 05/29 with multiple concerns. He is being managed for the following: Acute on chronic systolic CHF (congestive heart failure): Bilateral lower extremity edema: Last Echo 11/15/21- showed EF 50-55%, mild LVH, and mild . Repeat Echo At presentation, BNP >4700, Trop flat trended at 23-->20, no chest pain, EKG w/ SR w/ 1st degree AV block. B/L LE edematous with L>R (Venous Doppler BLE negative for DVT). Admitting CXR: Cardiomegaly. Pulmonary vascular congestion with possible mild pulmonary edema. 05/30 ECHO; technically limited d/t patient's lack of cooperation. EF 30%, mod to severe global hypokinesis of left ventricle. c/w med/tele. Cardiology following, appreciate recs c/w home Coreg, Imdur Pt on iv lasix 40 daily - plan to switch to PO 40 bid Replete and monitor electrolytes as appropriate. Cellulitis LLE Open wound of left lower extremity with complication: Open wound of right lower extremity: Wounds were covered in feces, urine, dirt upon admission. Continue wound care. 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 Patient unable to ambulate well secondary to this fall. Admitting CT Hip with no fracture/dislocation within the left hip. Mild to mod left hip OA. Admitting CPK wnl PT/OT while inpatient. Hyperkalemia: Plan: Monitor, normalized Diarrhea: Plan: Stool studies negative upon presentation. ? Medication related vs other Patient is eating and drinking well. Continue diabetic, low sodium, lactose free diet Pt reports no further diarrhea CKD (chronic kidney disease) stage 3, GFR 30-59 ml/min: Plan: Continue to monitor BMP with Lasix, abx. Current Cr 1.4 Diabetes type 2, uncontrolled: Plan: Patient refuses baseline insulin. Insulin sliding scale ordered Current HbA1C 9.1% (improved from 12% in December 2020) Diabetic diet DINO (obstructive sleep apnea): Plan: Continue CPAP History of GI bleed: History of CVA (cerebrovascular accident): Plan: Patient hasn't been taking ASA 81 mg in the past few months due to history of GI bleed. Continue to hold while inpatient Hgb stable Urinary incontinence: Plan: Place Crandall catheter UA not s/o UTI DVT prophylaxis: SQ Heparin 5,000 Q 12h Plan to DC to [facility] Total Time Total Time Spent Total Time Spent (In Minutes): 40 Discharge Plan Discharge Items Patient Disposition: Transfer Inpatient Rehab Fac Reason For Visit: HEART FAILURE Discharge Diagnosis: Acute on chronic systolic CHF (congestive heart failure) Bilateral lower extremity edema Cellulitis LLE Open wound of left and right lower extremity Activity: Per Instructions section Non-emergency contact: Primary Care Provider Call non-emergency contact if: you have any medication questions and your symptoms worsen Follow-up/Referrals: Scarlett Quiroz MD [Primary Care Provider] - Diet: Carb Consistent or DM2 and Heart Healthy Fluids: 2000ml (8 cups) Addtl Attending Provider Instructions: You will need to be on IV antibiotics (cefepime and vancomycin), for now to treat your lower extremity infection. Continue taking your home medications, except for spironolactone. You will need to be assessed by a physician before restarting this medication. It is important that you have your blood work checked so the medication changes can be made. Pending Studies at Discharge: No Stand-Alone Forms: My [facility] Skilled Items Patient informed of condition?: Yes DNR: No Discharge Level of Care: Acute rehab Communicable Disease: No Discharge Prognosis: Improving Lines: None Urinary Catheter: Yes Medications and DC Order Prescriptions: New Advanced Probiotic 625 mg (10 billion cell) Capsule 2 cap PO DAILY Qty: 10 RF: 0 Continued furosemide 40 mg tablet 40 mg PO BID RF: 0 trazodone 50 mg tablet 50 mg PO BID RF: 0 carvedilol 3.125 mg tablet 3.125 mg PO BID RF: 0 glipizide 2.5 mg tablet extended release 24 hr 2.5 mg PO QAM RF: 0 pantoprazole 40 mg tablet,delayed release (DR/EC) 40 mg PO DAILYBB RF: 0 isosorbide mononitrate 30 mg tablet extended release 24 hr 30 mg PO QAM RF: 0 Discontinued spironolactone 25 mg tablet 25 mg PO DAILY RF: 0 Discharge Orders: Discharge Order (Routine); Ordered 06/04/21 Ordered By: Chema Estrada Admission Data Admit Date/Time: 05/29/21 12:25 Attending Provider: Chema Estrada Admit Provider: Keisha Wilkes Primary Care Provider: Scarlett Quiroz Other Providers: Keisha Wilkes ; Sadiq Flynn ; [facility] ; [facility] ; Yarelis Cabrera ; Fazal Basilio ; Mini Flower ; Philip Sainz I. ; Richard Alford II ; Nina Thompson ; Reji Monroy ; Issa Douglas.
[2021-06-04] MEDS: VANCOMYCIN HCL 1,250 MG in SODIUM CHLORIDE 0.9% 250 ML IV SCH (14:15)
== END 2021-06-04 15:40 | DRG 291 ==
LOC: ED 06:27 → 2W 12:25 → SUATTDRO 12:25 → 2W 05-30 19:37

== ENCOUNTER 2021-09-29 22:59 | Observation (INO) ==
[2021-09-29 23:19] LABS: Basophils # (auto) 0.06 K/uL (0-0.2); Basophils % (auto) 0.9 %; Eosinophils % (auto) 2.9 %; Hematocrit (blood only) 48.3 % (40.1-51.0); Hemoglobin 15.4 g/dl (14.0-18.0); Immature Granulocytes # (auto) 0.01 K/uL (0.00-0.02); Immature Granulocytes % (auto) 0.1 %; Lymphocytes # (auto) 1.09 K/uL (1.2-3.4); Lymphocytes % (auto) 15.8 %; Mean Corpuscular Hemoglobin 27.9 pg (25.0-34.0); Mean Corpuscular Hgb Conc 31.9 g/dL (32.0-36.0); Mean Corpuscular Volume 87.7 fL (80.0-100.0); Mean Platelet Volume 10.6 fL (9.4-12.4); Monocytes # (auto) 0.33 K/uL (0.24-0.82); Monocytes % (auto) 4.8 %; Neutrophils # (auto) 5.21 K/uL (1.4-6.5); Neutrophils % (auto) 75.5 %; Platelet Count 172 K/uL (130-400); RDW Coefficient of Variation 17.4 % (11.5-14.5); RDW Standard Deviation 56.3 fL (36.4-46.3); Red Blood Count 5.51 M/uL (4.63-6.08)
[2021-09-29 23:57] LABS: Albumin Globulin Ratio 1.2 (0.9-2); Albumin Level 4.4 gm/dl (3.4-5.0); BUN Creatinine Ratio 27.5 (10-20); Calcium 9.8 mg/dl (8.5-10.1); Creatinine Clr Calc Pharmacy 41.6 ml/min; Est GFR (African American) 49.9 ml/min; Globulin 3.6 gm/dl (2.5-4.0); Potassium 3.7 mmol/L (3.5-5.1); Troponin I High Sensitivity 31.6 pg/ml (0-20)
--- NOTE | 2021-09-30 00:01 | Emergency Department Note ---
History of Present Illness General Chief complaint: Cardiac Assessment Stated complaint: chest pain/MID STERNAL PAIN/POSSIBLE FOOD BOLUS Time Seen by Provider: 09/29/21 23:34 History of Present Illness 71-year-old male presents to the ED with a chief complaint of inability to swallow. The patient states that around 6 PM tonight he was eating barbecue chicken while he was at [facility]. He states that he has no teeth and it was kind of dry. He therefore was unable to chew it well. He states that luis rtly after swallowing some of the chicken, he was unable to swallow anymore. He has been having some discomfort in his chest since that time. He has been spitting up his saliva intermittently since that time. The patient has no additional complaints. He came from [facility] where he was getting rehab. He states that about 2 weeks ago he had a similar episode with eating chicken. He was seen in the emergency department for that episode. Reviewing the note, the ED doctor at that time thought that his symptoms may have been related to an esophageal obstruction as he had a choking episode and vomited. When the patient arrived, his symptoms had improved and nothing was found on his studies and he was able to swallow. The patient states that he thinks that he vomited up the chicken that caused the obstruction on his previous visit. Home Medications Medication Instructions Recorded Confirmed Type carvedilol 3.125 mg tablet 3.125 mg PO BID 12/17/20 05/29/21 History furosemide 40 mg tablet 40 mg PO BID 12/17/20 05/29/21 History trazodone 50 mg tablet 50 mg PO BID 12/17/20 05/29/21 History glipizide 2.5 mg tablet, extended 2.5 mg PO QAM 05/10/21 05/29/21 History release 24 hr pantoprazole 40 mg tablet,delayed 40 mg PO DAILYBB 05/10/21 05/29/21 History release isosorbide mononitrate 30 mg 30 mg PO QAM 05/29/21 05/29/21 History tablet,extended release 24 hr L.acidop,casei,lactis,rham-B.lact,ana rosa 2 cap PO DAILY #10 caps 06/04/21 Rx 625 mg (10 billion cell) capsule (Advanced Probiotic) Allergies Allergy/AdvReac Type Severity Reaction Status Date / Time lisinopril Allergy Unconscious Verified 05/29/21 07:47 oxycodone Allergy "stops my Verified 05/29/21 07:47 breathing" tramadol Allergy "stops my Verified 05/29/21 07:47 breathing" amlodipine [From Norvasc] AdvReac Confusion Verified 05/29/21 15:09 insulin glargine AdvReac muscle Verified 05/29/21 07:47 [From Lantus U-100 Insulin] spasms metformin AdvReac muscle Verified 05/29/21 07:47 spasms metoprolol AdvReac Hypertensio Verified 05/29/21 15:09 n sitagliptin [From Januvia] AdvReac makes me Verified 05/29/21 07:47 just vibrate Larfwny-OKQ-VaU Reductase AdvReac "it Verified 05/29/21 07:47 Inhibitor destroys my organs Past Med/Surg History Medical History CAD (coronary artery disease) Cardiac cath in 2019 showed severe multivessel CAD, patient declining CABG - troponin positive likely due to demand ischemia this admission Chronic back pain Chronic diastolic CHF (congestive heart failure) Coffee ground emesis Diabetes type 2, uncontrolled DM type 2 (diabetes mellitus, type 2) Elevated troponin History of CVA (cerebrovascular accident) History of GI bleed History of hypertension DINO (obstructive sleep apnea) Paranoid personality (disorder) UGIB (upper gastrointestinal bleed) Urinary incontinence Surgical History Hx of tonsillectomy Family History Father Myocardial infarction Denies family history of Heart disease Social History Smoking Status: Never smoker Second Hand Exposure: No; Hx Alcohol Use: No Hx Substance Use: No Preferred Language: Bulgarian Communication Ability: Effective Taker Off Drying Kiln Required: No Beliefs That Will Affect Care: None marital status: Single Current Living Situation: Parent Current Living Situation Comment: Lives w/ mother. How many Children do You have: 0 Feels Safe at Home: Yes Assistive Devices: Cane, Walker and Wheelchair Review of Systems A total of 10 systems reviewed and were otherwise negative Physical Exam Vital Signs Vital Signs - 24 hr 09/29/21 23:14 08/25/22 23:07 09/29/21 23:07 Temperature 37.0 C Temperature Source Oral Pulse Rate 100 H Pulse Rate [Left Radial] 100 H Pulse Rhythm Pulse Rhythm [Left Radial] Regular Respiratory Rate 20 20 Respiratory Effort / Characteristics Non-Labored Non-Labored Respiratory Depth Normal Normal Respiratory Pattern Regular Regular Blood Pressure 184/109 H Blood Pressure [Left Arm] 184/109 H Blood Pressure Mean 134 Blood Pressure Mean [Left Arm] 134 Blood Pressure Position Lying Blood Pressure Position [Left Arm] Lying Pulse Oximetry 97 97 Oxygen Delivery Method Room Air Room Air Room Air Sepsis Recent Fever Within 48 Hours No Sepsis New/Unexplained Change in Mental Status No Sepsis Action Taken by Nursing No Action Required 09/29/21 23:07 Temperature Temperature Source Pulse Rate 100 H Pulse Rate [Left Radial] Pulse Rhythm Regular Pulse Rhythm [Left Radial] Respiratory Rate 20 Respiratory Effort / Characteristics Respiratory Depth Respiratory Pattern Blood Pressure Blood Pressure [Left Arm] Blood Pressure Mean Blood Pressure Mean [Left Arm] Blood Pressure Position Blood Pressure Position [Left Arm] Pulse Oximetry 97 Oxygen Delivery Method Room Air Sepsis Recent Fever Within 48 Hours Sepsis New/Unexplained Change in Mental Status Sepsis Action Taken by Nursing CONSTITUTIONAL/VITAL SIGNS: Reviewed / noted above. GENERAL: Non-toxic in appearance. Spit up his saliva twice while I was interviewing him. INTEGUMENTARY: Warm, dry, and [place]. HEAD: Normocephalic. EYES: without scleral icterus or trauma. ENT/OROPHARYNX: clear and moist. LYMPHADENOPATHY/NECK: Is supple without lymphadenopathy or meningismus. RESPIRATORY: Clear to auscultation bilaterally. No increased work of breathing. CARDIOVASCULAR: Regular rate and rhythm. GI/ABDOMEN: Soft and nontender. No organomegaly or pulsatile mass. EXTREMITIES: Warm and well perfused. BACK: No CVA tenderness. NEUROLOGICAL: Intact without focal deficits. PSYCHIATRIC: normal affect. MUSCULOSKELETAL: Normally developed with average to poor muscle tone. TRIAGE NURSING DOCUMENTATION REVIEWED. Medical Decision Making Differential Diagnosis The differential that was considered includes acute myocardial infarction, acute coronary syndrome, myocarditis, pericarditis, pericardial effusions /tamponade, esophageal perforation/obstruction, thoracic aortic dissection, pulmonary embolism, pneumonia, pneumothorax, pancreatitis, shingles, acute cholecystitis, perforated abdominal viscus. Medical Records Attestation: I reviewed the patient's medical records. Home Medications Current Medication List: was personally reviewed by me Laboratory Data Attestation: I reviewed the patient's lab results. Result diagrams: 09/29/21 23:14 09/29/21 23:14 Lab Results 09/29/21 09/29/21 Range/Units 23:14 23:14 WBC 6.90 (4.8-10.8) K/ul RBC 5.51 (4.63-6.08) M/uL Hgb 15.4 (14.0-18.0) g/dl Hct 48.3 (40.1-51.0) % MCV 87.7 (80.0-100.0) fL MCH 27.9 (25.0-34.0) pg MCHC 31.9 L (32.0-36.0) g/dL RDW Std Deviation 56.3 H (36.4-46.3) fL RDW Coeff of Pham 17.4 H (11.5-14.5) % Plt Count 172 (130-400) K/uL MPV 10.6 (9.4-12.4) fL Immature Gran % (Auto) 0.1 % Neut % (Auto) 75.5 % Lymph % (Auto) 15.8 % Tompkins % (Auto) 4.8 % Eos % (Auto) 2.9 % Baso % (Auto) 0.9 % Neut # (Auto) 5.21 (1.4-6.5) K/uL Lymph # (Auto) 1.09 L (1.2-3.4) K/uL Tompkins # (Auto) 0.33 (0.24-0.82) K/uL Eos # (Auto) 0.20 (0-0.50) K/uL Baso # (Auto) 0.06 (0-0.2) K/uL Immature Gran # (Auto) 0.01 (0.00-0.02) K/uL Sodium 137 (136-145) mmol/L Potassium 3.7 (3.5-5.1) mmol/L Chloride 101 (98-107) mmol/L Carbon Dioxide 25 (21-32) mmol/L Anion Gap 11 (3-11) BUN 44 H (6-23) mg/dl Creatinine 1.60 H (0.6-1.4) mg/dl Est Cr Clr Drug Dosing 41.6 ml/min Est GFR ( Amer) 49.9 ml/min Est GFR (Non-Af Amer) 43.0 ml/min BUN/Creatinine Ratio 27.5 H (10-20) Glucose 262 H (70-99(Fasting)) mg/dl Calcium 9.8 (8.5-10.1) mg/dl Total Bilirubin 1.0 (0.2-1.0) mg/dl AST 21 (13-39) U/L ALT 15 (7-52) U/L Alkaline Phosphatase 79 (34-104) U/L Troponin I High Sens 31.6 H D (0-20) pg/ml Total Protein 8.0 (6.0-8.3) gm/dl Albumin 4.4 (3.4-5.0) gm/dl Globulin 3.6 (2.5-4.0) gm/dl Albumin/Globulin Ratio 1.2 (0.9-2) Lipase 20 (11-82) U/L Imaging Data My Impression: Chest x-ray: Per my interpretation there is no acute disease. No pneumonia or pneumothorax. ECG Data Attestation: I personally reviewed and interpreted this ECG as follows: Additional Comments: Twelve-lead EKG: Per my interpretation shows a sinus rhythm at a rate of 100. No ST elevation. No PVCs. Normal QTC. MDM Narrative 71-year-old male presents with symptoms consistent with esophageal obstruction with chicken. His symptoms started around 6 PM while eating chicken. He has been spitting up his saliva ever since. He spit up his saliva twice during my evaluation in the ED. His chest x-ray did not show acute process. His blood work was unremarkable for acute cardiac abnormality. No anemia. Chronic renal insufficiency but a little worse today possibly secondary to dehydration. Hyperglycemia. EKG shows a sinus rhythm. No acute ischemic changes. Troponin is mildly elevated at 31. This has been mildly elevated in the past as well although might be exaggerated today related to his worsened renal insufficiency. I did speak with Dr. Brown about the patient. He is going to see the patient for possible endoscopy. Also spoke with the hospitalist about the patient. The hospitalist will see the patient for further inpatient evaluation. Impression & Plan Obstruction of esophagus due to food impaction, Elevated troponin, Acute renal insufficiency Discharge Plan Visit Data Chief Complaint: Cardiac Assessment Stated Complaint: chest pain/MID STERNAL PAIN/POSSIBLE FOOD BOLUS ED Provider: Morgan Michel Discharge Problem: Obstruction of esophagus due to food impaction, Elevated troponin, Acute renal insufficiency Patient Disposition: Being Evaluated by Hospitalist Forms Stand Alone Forms: My [facility], Virtual Emergency Department, Important Visit Information Prescriptions Prescriptions: No Action furosemide 40 mg tablet 40 mg PO BID trazodone 50 mg tablet 50 mg PO BID carvedilol 3.125 mg tablet 3.125 mg PO BID glipizide 2.5 mg tablet extended release 24 hr 2.5 mg PO QAM pantoprazole 40 mg tablet,delayed release (DR/EC) 40 mg PO DAILYBB isosorbide mononitrate 30 mg tablet extended release 24 hr 30 mg PO QAM Advanced Probiotic 625 mg (10 billion cell) Capsule 2 cap PO DAILY Qty: 10 0RF Referrals Referrals: Scarlett Quiroz MD [Primary Care Provider] -
[2021-09-30] MEDS ORDERED: LABETALOL HCL IV 5 MG/ML 20ML IV STA (00:25)
[2021-09-30] MEDS ORDERED: SODIUM CHLORIDE 0.9% 500 ML IV STA (00:36)
--- NOTE | 2021-09-30 00:42 | History & Physical Report ---
Date of Service September 30, 2021 Assessment & Plan (1) Obstruction of esophagus due to food impaction: Plan: EGD today. Patient was explained in detail regarding risks, benefits, limitations and alternatives of the above endoscopic procedure. Risks of intravenous sedation used for procedure were also explained. Risks include, but not limited to perforation, bleeding, infection, respiratory distress, cardiac arrest and . Patient is also aware about the possibility of missed lesion. Patient's questions were answered. The patient verbalized understanding the information and agreed to undergo the procedure. History of Present Illness Primary Care Provider: Scarlett Quiroz MD Esophageal food bolus after eating chicken. Not able to handle secretions. Allergies Allergy/AdvReac Type Severity Reaction Status Date / Time lisinopril Allergy Unconscious Verified 05/29/21 07:47 oxycodone Allergy "stops my Verified 05/29/21 07:47 breathing" tramadol Allergy "stops my Verified 05/29/21 07:47 breathing" amlodipine [From Norvasc] AdvReac Confusion Verified 05/29/21 15:09 insulin glargine AdvReac muscle Verified 05/29/21 07:47 [From Lantus U-100 Insulin] spasms metformin AdvReac muscle Verified 05/29/21 07:47 spasms metoprolol AdvReac Hypertensio Verified 05/29/21 15:09 n sitagliptin [From Januvia] AdvReac makes me Verified 05/29/21 07:47 just vibrate Rnjqswl-EQT-VuB Reductase AdvReac "it Verified 05/29/21 07:47 Inhibitor destroys my organs Home Medications Medication Instructions Recorded Confirmed Type carvedilol 3.125 mg tablet 3.125 mg PO BID 12/17/20 05/29/21 History furosemide 40 mg tablet 40 mg PO BID 12/17/20 05/29/21 History trazodone 50 mg tablet 50 mg PO BID 12/17/20 05/29/21 History glipizide 2.5 mg tablet, extended 2.5 mg PO QAM 05/10/21 05/29/21 History release 24 hr pantoprazole 40 mg tablet,delayed 40 mg PO DAILYBB 05/10/21 05/29/21 History release isosorbide mononitrate 30 mg 30 mg PO QAM 05/29/21 05/29/21 History tablet,extended release 24 hr L.acidop,casei,lactis,rham-B.lact,ana rosa 2 cap PO DAILY #10 caps 06/04/21 Rx 625 mg (10 billion cell) capsule (Advanced Probiotic) Past Med/Surg History Medical History CAD (coronary artery disease) Cardiac cath in 2019 showed severe multivessel CAD, patient declining CABG - troponin positive likely due to demand ischemia this admission Chronic back pain Chronic diastolic CHF (congestive heart failure) Coffee ground emesis Diabetes type 2, uncontrolled DM type 2 (diabetes mellitus, type 2) Elevated troponin History of CVA (cerebrovascular accident) History of GI bleed History of hypertension DINO (obstructive sleep apnea) Paranoid personality (disorder) UGIB (upper gastrointestinal bleed) Urinary incontinence Surgical History Hx of tonsillectomy Family History Father Myocardial infarction Denies family history of Heart disease Social History Smoking Status: Never smoker Second Hand Exposure: No; Hx Alcohol Use: No Hx Substance Use: No Preferred Language: Polish Communication Ability: Effective Primer Charger Required: No Beliefs That Will Affect Care: None marital status: Single Current Living Situation: Parent Current Living Situation Comment: Lives w/ mother. How many Children do You have: 0 Feels Safe at Home: Yes Assistive Devices: Cane, Walker and Wheelchair Review of Systems All systems reviewed & are unremarkable except as noted in HPI & below Physical Exam Constitutional: comfortable; no acute distress Respiratory: normal respiratory effort, lungs clear to auscultation Cardiovascular: RRR, no murmur, no edema Gastrointestinal (Abdomen): normal bowel sounds, soft, nontender, no hep atosplenomegaly Results & Data ([facility]) Vital Signs (Past 12 Hours) Vital Signs Temp Pulse Pulse Resp BP BP Pulse Ox 09/29/21 23:07 100 H 20 97 09/29/21 23:07 100 H 20 184/109 H 97 09/29/21 23:07 09/29/21 23:14 37.0 C 100 H 20 184/109 H 97 O2 Del Method 09/29/21 23:07 Room Air 09/29/21 23:07 Room Air 09/29/21 23:07 Room Air 09/29/21 23:14 Room Air Laboratory Results Laboratory Results - last 24 hr 09/29/21 09/29/21 09/30/21 23:14 23:14 00:02 WBC 6.90 RBC 5.51 Hgb 15.4 Hct 48.3 MCV 87.7 MCH 27.9 MCHC 31.9 L RDW Std Deviation 56.3 H RDW Coeff of Pham 17.4 H Plt Count 172 MPV 10.6 Immature Gran % (Auto) 0.1 Neut % (Auto) 75.5 Lymph % (Auto) 15.8 [place] % (Auto) 4.8 Eos % (Auto) 2.9 Baso % (Auto) 0.9 Neut # (Auto) 5.21 Lymph # (Auto) 1.09 L [place] # (Auto) 0.33 Eos # (Auto) 0.20 Baso # (Auto) 0.06 Immature Gran # (Auto) 0.01 Sodium 137 Potassium 3.7 Chloride 101 Carbon Dioxide 25 Anion Gap 11 BUN 44 H Creatinine 1.60 H Est Cr Clr Drug Dosing 41.6 Est GFR ( Amer) 49.9 Est GFR (Non-Af Amer) 43.0 BUN/Creatinine Ratio 27.5 H Glucose 262 H Calcium 9.8 Total Bilirubin 1.0 AST 21 ALT 15 Alkaline Phosphatase 79 Troponin I High Sens 31.6 H D Total Protein 8.0 Albumin 4.4 Globulin 3.6 Albumin/Globulin Ratio 1.2 Lipase 20 SARS-CoV-2, RNA, NAAT NEGATIVE
--- NOTE | 2021-09-30 00:57 | History & Physical Report ---
Date of Service September 30, 2021 Assessment & Plan (1) Atypical chest pain: Plan: Secondary to food bolus impaction status post successful endoscopic removal Schatzki's ring at GE junction on endoscopy troponin elevation secondary to uncontrolled BP secondary to patient discomfort in the setting of kidney dysfunction chronic systolic heart failure (EF 30%, TTE 2021), patient euvolemic hx CAD/CVA/PVD COPD, not in acute exacerbation hyperlipidemia, statin intolerance DM2 on oral medications, suboptimal control as of recent hemoglobin A1c of 9.1 last May 2021 CRI, creatinine close to baseline DINO on CPAP paranoid personality disorder OBS PCU Facilitate Coreg and titrate as needed Follow troponin TTE if with progression Follow-up EGD after 4 weeks for Schatzki's ring dilatation as per GI recommendations. Basal bolus insulin ISS BG goal 1 10-1 40, carb count coverage DVT prophylaxis per Heparin subcu Full code Discharge patient back to [facility] rehab facility if downtrend noted on follow- up troponin. Text document was generated using [employer] voice recognition software. It may contain grammatical or spelling errors. Kindly contact undersigned for clarification of any documentation item in question. History of Present Illness Chief Complaint: Chest pain, food bolus impaction Primary Care Provider: Scarlett Quiroz MD History obtained from patient and records. Medical history significant for chronic systolic heart failure (EF 30%, TTE 2021), CAD/CVA/PVD, COPD, hypertension, hyperlipidemia, DM2 on oral medications, CRI (baseline creatinine 1.5), DINO on CPAP, chronic LE venous stasis, paranoid personality/schizoaffective disorder as per records. Last [facility] confinement May 2021 for decompensated heart failure. Patient has been admitted at [facility] rehab facility the last [address] [facility] admission for weakness and acute renal failure. Patient waiting for placement at a personal shelter as as patient's prior residence has been condemned 2 weeks ago, patient evaluated at the ER for possibly choking on some chicken followed by emesis. Patient subsequently discharged back to rehab facility. Last night around dinnertime, patient choked on a piece of barbecue chicken. Patient unable to swallow saliva. Achy chest pain without shortness of breath. No unusual cough symptoms. Patient brought to the ER for evaluation. SBP 180s upon arrival at the ER Patient underwent emergent EGD by GI specialist front attendant. Impacted food was found in the lower third of the esophagus as per report. Food gently pushed down to the stomach. Small hiatal hernia with faint Schatzki's ring noted at GE junction. EGD recommended after 4 weeks for dilation procedure. Patient currently comfortable. Medical History as above Surgical History : Tonsillectomy Family History : Heart disease Personal/Social history : Non-smoker, no EtOH intake, retired from [employer] work Allergies Allergy/AdvReac Type Severity Reaction Status Date / Time aripiprazole [From Abilify] Allergy Unknown Unverified 09/30/21 01:38 lisinopril Allergy Unconscious Verified 09/30/21 01:38 oxycodone Allergy "stops my Verified 09/30/21 01:38 breathing" Penicillins Allergy Unknown Unverified 09/30/21 01:38 Sulfa (Sulfonamide Allergy Unknown Unverified 09/30/21 01:38 Antibiotics) tramadol Allergy "stops my Verified 09/30/21 01:38 breathing" amlodipine [From Norvasc] AdvReac Confusion Verified 09/30/21 01:38 cyclobenzaprine AdvReac Unknown Unverified 09/30/21 01:38 [From Flexeril] insulin glargine AdvReac muscle Verified 09/30/21 01:38 [From Lantus U-100 Insulin] spasms metformin AdvReac muscle Verified 09/30/21 01:38 spasms metoprolol AdvReac Hypertensio Verified 09/30/21 01:38 n quetiapine [From Seroquel] AdvReac Unknown Unverified 09/30/21 01:38 sitagliptin [From Januvia] AdvReac makes me Verified 09/30/21 01:38 just vibrate Tajlwir-KGM-PbS Reductase AdvReac "it Verified 09/30/21 01:38 Inhibitor destroys my organs Home Medications Medication Instructions Recorded Confirmed Type carvedilol 3.125 mg tablet 3.125 mg PO QAM 12/17/20 09/30/21 History furosemide 40 mg tablet 40 mg PO BID 12/17/20 09/30/21 History trazodone 50 mg tablet 50 mg PO BID 12/17/20 09/30/21 History glipizide 2.5 mg tablet, extended 2.5 mg PO QAM 05/10/21 09/30/21 History release 24 hr pantoprazole 40 mg tablet,delayed 40 mg PO DAILYBB 05/10/21 09/30/21 History release acetaminophen 325 mg tablet 650 mg PO Q4H PRN Pain 09/30/21 09/30/21 History (Tylenol) bisacodyl 10 mg rectal suppository 10 mg VT DAILY PRN Constipation 09/30/21 09/30/21 History docusate sodium 100 mg capsule 100 mg PO BID 09/30/21 09/30/21 History enoxaparin 40 mg/0.4 mL 40 mg subcut DAILY 09/30/21 09/30/21 History subcutaneous syringe isosorbide mononitrate 60 mg 60 mg PO QAM 09/30/21 09/30/21 History tablet,extended release 24 hr magnesium hydroxide 400 mg/5 mL 30 ml PO DAILY PRN Constipation 09/30/21 09/30/21 History oral suspension (Milk of Magnesia) ondansetron 4 mg disintegrating 4 mg PO Q6H PRN Nausea 09/30/21 09/30/21 History tablet polyethylene glycol 3350 17 17 g PO .DAILY@LUNCH PRN 09/30/21 09/30/21 History gram/dose oral powder Constipation risperidone 0.25 mg tablet 0.25 mg PO HS 09/30/21 09/30/21 History sennosides 8.6 mg-docusate sodium 1 tab-cap PO .DAILY@LUNCH PRN 09/30/21 09/30/21 History 50 mg tablet (Senna with Docusate Constipation Sodium) silver sulfadiazine 1 % topical 1 applic topical BID 09/30/21 09/30/21 History cream sodium phosphates 19 gram-7 118 ml VT DAILY PRN Constipation 09/30/21 09/30/21 History gram/118 mL enema (Fleet Enema) Past Med/Surg History Medical History CAD (coronary artery disease) Cardiac cath in 2019 showed severe multivessel CAD, patient declining CABG - troponin positive likely due to demand ischemia this admission Chronic back pain Chronic diastolic CHF (congestive heart failure) Coffee ground emesis Diabetes type 2, uncontrolled DM type 2 (diabetes mellitus, type 2) Elevated troponin History of CVA (cerebrovascular accident) History of GI bleed History of hypertension DINO (obstructive sleep apnea) Paranoid personality (disorder) UGIB (upper gastrointestinal bleed) Urinary incontinence Surgical History Hx of tonsillectomy Family History Father Myocardial infarction Denies family history of Heart disease Social History Smoking Status: Never smoker Second Hand Exposure: No; Hx Alcohol Use: No Hx Substance Use: No Preferred Language: Citizen Of [place] Communication Ability: Effective Back Wedger Required: No Beliefs That Will Affect Care: None marital status: Single Current Living Situation: Rehab Current Living Situation Comment: Lives w/ mother. How many Children do You have: 0 Other Information That Helps Us Care for You: No Feels Safe at Home: Yes Safety Concerns: Feels Safe At This Time Assistive Devices: Glasses, Walker and Wheelchair Review of Systems Review of Systems: As per HPI, all other systems reviewed and negative Physical Exam Physical Exam: GENERAL: Comfortable, no respiratory distress SKIN: Normal color, warm HEENT: Alopecia, [place] palpebral conjunctivae, no ptosis, dry buccal mucosa NECK : Supple, no tenderness CHEST : CTA, no tenderness HEART : RRR, no obvious murmurs ABDOMEN: Some distention, nontender EXTREMITIES : Minimal LE swelling, no LE tenderness, no other conspicuous deformities noted NEUROLOGIC : Coherent, no facial asymmetry, no other gross focality Results & Data Results & Data ([facility]) Vital Signs (Past 12 Hours) Vital Signs Temp Pulse Pulse Resp BP BP Pulse Ox 09/29/21 23:07 100 H 20 97 09/29/21 23:07 100 H 20 184/109 H 97 09/29/21 23:07 09/29/21 23:14 37.0 C 100 H 20 184/109 H 97 O2 Del Method 09/29/21 23:07 Room Air 09/29/21 23:07 Room Air 09/29/21 23:07 Room Air 09/29/21 23:14 Room Air Laboratory Results Laboratory Results WBC 6.90 K/ul (4.8-10.8) 09/29/21 23:14 RBC 5.51 M/uL (4.63-6.08) 09/29/21 23:14 Hgb 15.4 g/dl (14.0-18.0) 09/29/21 23:14 Hct 48.3 % (40.1-51.0) 09/29/21 23:14 MCV 87.7 fL (80.0-100.0) 09/29/21 23:14 MCH 27.9 pg (25.0-34.0) 09/29/21 23:14 MCHC 31.9 g/dL (32.0-36.0) L 09/29/21 23:14 RDW Std Deviation 56.3 fL (36.4-46.3) H 09/29/21 23:14 RDW Coeff of Pham 17.4 % (11.5-14.5) H 09/29/21 23:14 Plt Count 172 K/uL (130-400) 09/29/21 23:14 MPV 10.6 fL (9.4-12.4) 09/29/21 23:14 Immature Gran % (Auto) 0.1 % 09/29/21 23:14 Neut % (Auto) 75.5 % 09/29/21 23:14 Lymph % (Auto) 15.8 % 09/29/21 23:14 [place] % (Auto) 4.8 % 09/29/21 23:14 Eos % (Auto) 2.9 % 09/29/21 23:14 Baso % (Auto) 0.9 % 09/29/21 23:14 Neut # (Auto) 5.21 K/uL (1.4-6.5) 09/29/21 23:14 Lymph # (Auto) 1.09 K/uL (1.2-3.4) L 09/29/21 23:14 [place] # (Auto) 0.33 K/uL (0.24-0.82) 09/29/21 23:14 Eos # (Auto) 0.20 K/uL (0-0.50) 09/29/21 23:14 Baso # (Auto) 0.06 K/uL (0-0.2) 09/29/21 23:14 Immature Gran # (Auto) 0.01 K/uL (0.00-0.02) 09/29/21 23:14 Sodium 137 mmol/L (136-145) 09/29/21 23:14 Potassium 3.7 mmol/L (3.5-5.1) 09/29/21 23:14 Chloride 101 mmol/L (98-107) 09/29/21 23:14 Carbon Dioxide 25 mmol/L (21-32) 09/29/21 23:14 Anion Gap 11 (3-11) 09/29/21 23:14 BUN 44 mg/dl (6-23) H 09/29/21 23:14 Creatinine 1.60 mg/dl (0.6-1.4) H 09/29/21 23:14 Est Cr Clr Drug Dosing 41.6 ml/min 09/29/21 23:14 Est GFR ( Amer) 49.9 ml/min 09/29/21 23:14 Est GFR (Non-Af Amer) 43.0 ml/min 09/29/21 23:14 BUN/Creatinine Ratio 27.5 (10-20) H 09/29/21 23:14 Glucose 262 mg/dl (70-99(Fasting)) H 09/29/21 23:14 Calcium 9.8 mg/dl (8.5-10.1) 09/29/21 23:14 Total Bilirubin 1.0 mg/dl (0.2-1.0) 09/29/21 23:14 AST 21 U/L (13-39) 09/29/21 23:14 ALT 15 U/L (7-52) 09/29/21 23:14 Alkaline Phosphatase 79 U/L (34-104) 09/29/21 23:14 Troponin I High Sens 31.6 pg/ml (0-20) H D 09/29/21 23:14 Total Protein 8.0 gm/dl (6.0-8.3) 09/29/21 23:14 Albumin 4.4 gm/dl (3.4-5.0) 09/29/21 23:14 Globulin 3.6 gm/dl (2.5-4.0) 09/29/21 23:14 Albumin/Globulin Ratio 1.2 (0.9-2) 09/29/21 23:14 Lipase 20 U/L (11-82) 09/29/21 23:14 SARS-CoV-2, RNA, NAAT NEGATIVE (NEGATIVE) 09/30/21 00:02 Diagnostic Findings Chest x-ray as per my interpretation cardiomegaly EKG as per my interpretation :Rate 100, NSR, LAD, LAFB, 1 AVB, LVH, inferior infarct Code Status & VTE Plan VTE Prophylaxis Plan VTE Prophylaxis will be ordered: Yes
--- NOTE | 2021-09-30 01:02 | Anesthesiology Consultation ---
Date of Service September 30, 2021 Assessment & Plan (1) Encounter for pre-operative examination: Chart Review Chart Review: Acceptable Risk for Surgery (emergency surgery) and Patient NOT seen in Pre Admission Testing Consults Requested none History Surgery Operation Date: 09/30/21 00:35 Proposed Procedures p Endoscopic Foreign Body Removal - Christoph Yost MD Height/Weight Height: 5 ft 8 in Weight: 79 kg Allergies Allergy/AdvReac Type Severity Reaction Status Date / Time aripiprazole [From Abilify] Allergy Unknown Unverified 09/30/21 01:03 lisinopril Allergy Unconscious Verified 05/29/21 07:47 oxycodone Allergy "stops my Verified 05/29/21 07:47 breathing" tramadol Allergy "stops my Verified 05/29/21 07:47 breathing" amlodipine [From Norvasc] AdvReac Confusion Verified 05/29/21 15:09 cyclobenzaprine AdvReac Unknown Unverified 09/30/21 01:05 [From Flexeril] insulin glargine AdvReac muscle Verified 05/29/21 07:47 [From Lantus U-100 Insulin] spasms metformin AdvReac muscle Verified 05/29/21 07:47 spasms metoprolol AdvReac Hypertensio Verified 05/29/21 15:09 n sitagliptin [From Januvia] AdvReac makes me Verified 05/29/21 07:47 just vibrate Ualsrup-CFM-AjL Reductase AdvReac "it Verified 05/29/21 07:47 Inhibitor destroys my organs Medications Home Medications Medication Instructions Recorded Confirmed Last Taken carvedilol 3.125 mg tablet 3.125 mg PO BID 12/17/20 05/29/21 05/28/21 furosemide 40 mg tablet 40 mg PO BID 12/17/20 05/29/21 05/28/21 trazodone 50 mg tablet 50 mg PO BID 12/17/20 05/29/21 05/28/21 glipizide 2.5 mg tablet, extended 2.5 mg PO QAM 05/10/21 05/29/21 05/27/21 release 24 hr pantoprazole 40 mg tablet,delayed 40 mg PO DAILYBB 05/10/21 05/29/21 05/28/21 release isosorbide mononitrate 30 mg 30 mg PO QAM 05/29/21 05/29/21 05/28/21 tablet,extended release 24 hr L.acidop,casei,lactis,rham-B.lact,ana rosa 2 cap PO DAILY #10 caps 06/04/21 Unknown 625 mg (10 billion cell) capsule (Advanced Probiotic) Active Medications Generic Name Dose Route Start Last Admin Trade Name Freq PRN Reason Stop Dose Admin Sodium Chloride 500 mls @ 50 mls/hr 09/30/21 00:36 09/30/21 00:44 Nss IV 09/30/21 10:35 50 mls/hr .Q10H STA Administration Past Medical History Medical History CAD (coronary artery disease) Cardiac cath in 2019 showed severe multivessel CAD, patient declining CABG - troponin positive likely due to demand ischemia this admission Chronic back pain Chronic diastolic CHF (congestive heart failure) Coffee ground emesis Diabetes type 2, uncontrolled DM type 2 (diabetes mellitus, type 2) Elevated troponin History of CVA (cerebrovascular accident) History of GI bleed History of hypertension DINO (obstructive sleep apnea) Paranoid personality (disorder) UGIB (upper gastrointestinal bleed) Urinary incontinence Past Family History Family History Father Myocardial infarction Denies family history of Heart disease Past Surgical History Surgical History Hx of tonsillectomy Social History Smoking Status: Never smoker Hx Alcohol Use: No Hx Substance Use: No Physical Exam Vital Signs Last Vital Signs Temp 37.0 C 09/29/21 23:14 Pulse 100 H 09/29/21 23:14 Resp 20 09/29/21 23:14 BP 184/109 H 09/29/21 23:14 Pulse Ox 97 09/29/21 23:14 O2 Del Method 09/29/21 23:14 Testing Laboratory Results 09/29/21 23:14 09/29/21 23:14 Electrocardiogram Date: 09/29/21 accelerated junctional rhythm, rate 100, LVH with repolarization abnormality, possible lateral infarct age undetermined, inferior infarct age undetermined Echocardiogram Date: 09/29/21 EF: 30 LV Function: dysfunctional RWMA: + hypokinetic
[2021-09-30] MEDS ORDERED: LABETALOL HCL IV 5 MG/ML 20ML IV PRN (01:05)
[2021-09-30] MEDS ORDERED: ATROPINE SULFATE 0.1 MG/ML 10ML SYR IV PRN (01:05)
[2021-09-30] MEDS ORDERED: ePHEDrine sulfate 50 MG/ML AMP IV PRN (01:05)
[2021-09-30] MEDS ORDERED: PHENYLEPHRINE 100MCG/ML 5ML SYR IV PRN (01:05)
[2021-09-30] MEDS ORDERED: ONDANSETRON INJ 2 MG/ML 2 ML VIAL IV PRN (01:05)
[2021-09-30] MEDS ORDERED: fentaNYL citrate 100 MCG/2 ML VIAL IV PRN (01:05)
[2021-09-30 01:21] LABS: Partial Thromboplastin Ratio 1.1; Partial Thromboplastin Time 29.9 Seconds (21.0-31.0)
[2021-09-30] MEDS ORDERED: PROPOFOL IV EMULSION 10 MG/ML 20 ML VIAL IV ONE (01:25)
[2021-09-30] MEDS ORDERED: LIDOCAINE 2% MPF LOCAL 5 ML VIAL INFIL ONE (01:25)
--- NOTE | 2021-09-30 01:42 | Operative Report ---
Post Operative Report Pre & Post Diagnosis Operation Date: 09/30/21 00:35 Pre-Op Diagnosis: chest pain/MID STERNAL PAIN/POSSIBLE FOOD BOLUS Post-Op Diagnosis: Food Bolus I identified the patient and participated in the time-out.: Yes Procedure Operation Date: 09/30/21 00:35 Actual Procedures p Upper Gastrointestinal Endoscopy with removal of Foreign Body(Not Applicable) - Christoph Yost MD Surgeon Christoph Yost MD [employer] None Estimated Blood Loss 0 Findings See Below (Esophageal food bolus removed) Specimens None Description of Procedure EGD I attest to the content of the Intraoperative Record and any orders documented therein. Any exceptions are noted below.
--- NOTE | 2021-09-30 01:55 | Anesthesiology Progress Note ---
Date of Service September 30, 2021 Anesthesia Post Procedure Vital Signs Vital Signs: Temp Pulse Pulse Resp BP BP Pulse Ox 09/30/21 01:26 74 18 168/124 H 98 09/29/21 23:07 100 H 20 97 09/29/21 23:07 100 H 20 184/109 H 97 09/29/21 23:07 09/29/21 23:14 37.0 C 100 H 20 184/109 H 97 O2 Del Method 09/30/21 01:26 Room Air 09/29/21 23:07 Room Air 09/29/21 23:07 Room Air 09/29/21 23:07 Room Air 09/29/21 23:14 Room Air Transfer of Care Handoff Completed per policy Notes Mental Status: alert / awake / arousable Patient Amnestic to Procedure: Yes Nausea / Vomiting: adequately controlled Pain: adequately controlled Airway Patency, RR, SpO2: stable & adequate BP & HR: stable & adequate Hydration State: stable & adequate Anesthetic Complications: no major complications apparent and Pt Satisfied with anesthetic care Notes: The patient is awake and comfortable.
--- NOTE | 2021-09-30 02:09 | GI REPORT ---
Patient Name: Nabeel Mancuso Procedure Date: 09/30/2021 12:53 AM Date of : 1950 Admit Type: Emergency Department Age: 71 Gender: Male Attending MD: Christoph Yost MD Procedure: Upper GI endoscopy Providers: Christoph Yost MD Referring MD: Morgan Theodore Indications: Foreign body in the esophagus Medicines: Propofol per Anesthesia Complications: No immediate complications. Estimated Blood Loss: Estimated blood loss: none. Procedure: Pre-Anesthesia Assessment: - Prior to the procedure, a History and Physical was performed, and patient medications, allergies and sensitivities were reviewed. The patient's tolerance of previous anesthesia was reviewed. - The risks and benefits of the procedure and the sedation options and risks were discussed with the patient. All questions were answered and informed consent was obtained. - Patient identification and proposed procedure were verified prior to the procedure by the physician and the nurse. The procedure was verified in the procedure room. - Pre-procedure physical examination revealed no contraindications to sedation. After obtaining informed consent, the endoscope was passed under direct vision. Throughout the procedure, the patient's blood pressure, pulse, and oxygen saturations were monitored continuously. The Endoscope was introduced through the mouth, and advanced to the second part of duodenum. The upper GI endoscopy was accomplished without difficulty. The patient tolerated the procedure well. Findings: Impacted food was found in the lower third of the esophagus. Removal was accomplished by gently sliding the food down to the stomach. A small hiatal hernia was present with faint Schatzki's ring at the GEJ. A medium amount of food (residue) was found in the gastric body. The duodenal bulb and second portion of the duodenum were normal. Impression: - Impacted food found in the esophagus. Removal was successful. - Small hiatal hernia. - A medium amount of food (residue) in the stomach. - Normal duodenal bulb and second portion of the duodenum. Recommendation: - Return patient [facility] for [facility] care. - Advance diet as tolerated. - Repeat upper endoscopy in 4 weeks for dilation. Christoph Yost MD 09/30/2021 2:08:35 AM This report has been signed electronically. Note Initiated On: 09/30/2021 12:53 AM Number of Addenda: 0 I attest to the content of the Intraoperative Record and orders documented therein, exceptions below {[id number]}
[2021-09-30] MEDS ORDERED: HYDROmorphone INJ 0.5 MG/0.5 ML SYR IV PRN (02:27)
[2021-09-30] MEDS ORDERED: PROMETHAZINE HCL 12.5 MG in SODIUM CHLORIDE 0.9% 50 ML IV PRN (02:27)
[2021-09-30] MEDS ORDERED: GLUCOSE 10 TAB/TUBE PO PRN (02:27)
[2021-09-30] MEDS ORDERED: CARBOHYDRATES FOR HYPOGLYCEMIA PO PRN (02:27)
[2021-09-30] MEDS ORDERED: GLUCAGON FOR INJ 1 MG VIAL SQ PRN (02:27)
[2021-09-30] MEDS ORDERED: DEXTROSE 50% 50 ML SYRINGE IV PRN (02:27)
[2021-09-30] MEDS ORDERED: GLUCOSE 40% GEL 15 GM TUBE PO PRN (02:27)
[2021-09-30] MEDS ORDERED: ACETAMINOPHEN 1,000 MG/100 ML VIAL IV PRN (02:27)
[2021-09-30] MEDS ORDERED: ACETAMINOPHEN 1000 MG/100 ML IV IV ONE (02:37)
[2021-09-30] MEDS ORDERED: INSULIN ASPART PER UNIT ONE (02:38)
[2021-09-30] MEDS: INSULIN ASPART PER UNIT SC SCH ×5 (02:40→17:47)
[2021-09-30] MEDS ORDERED: HYDROCODONE/ACETAMOPHEN 5/325MG TAB PO PRN (02:47)
[2021-09-30] MEDS ORDERED: ACETAMINOPHEN 325 MG TAB PO PRN (02:47)
[2021-09-30] MEDS ORDERED: INSULIN DETEMIR FLEXPEN/FLEX TOUCH 100 UNITS/ML 3ML SC STA (02:53)
[2021-09-30] MEDS ORDERED: DOCUSATE SODIUM/SENNA 50/8.6MG TAB PO PRN (03:00)
[2021-09-30] MEDS ORDERED: POLYETHYLENE (MIRALAX) 17 GM PACK PO PRN (03:00)
[2021-09-30] MEDS ORDERED: ACETAMINOPHEN W/CODEINE #3 1 TAB PO ONE (03:17)
[2021-09-30] MEDS ORDERED: ACETAMINOPHEN W/CODEINE #3 1 TAB PO PRN (03:17)
[2021-09-30] MEDS: carvediloL 3.125 MG TAB PO SCH (03:32)
[2021-09-30] MEDS: PANTOprazole 40 MG TAB PO SCH (06:14)
[2021-09-30] MEDS: HEPARIN SOD 5,000 UNIT/0.5 ML VIAL SQ SCH ×3 (06:15→19:51)
--- NOTE | 2021-09-30 07:23 | XRay Report ---
XR chest 1V portable HISTORY: 71 years-old Male Chest Pain acute atypical chest pain COMPARISON: Chest radiograph and CTA chest 09/16/2021 TECHNIQUE: AP view of the chest FINDINGS: Cardiac silhouette is enlarged. Atherosclerosis of the aorta. No pneumothorax, large pleural effusion or overt pulmonary edema. There is unchanged interstitial coarsening of the lung bases suggestive of atelectasis/scarring. Degenerative changes of the shoulders and spine. IMPRESSION: Cardiomegaly without acute process. ACT 112: Negative or not required by law. The above report was generated using voice recognition software. It may contain grammatical, syntax o r spelling errors. Electronically signed by: Mark Li M.D. 09/30/2021 7:21 AM
[2021-09-30 07:25] LABS: Estimated Average Glucose 171 mg/dl; Hemoglobin A1C 7.6 % (4.5-5.6)
--- NOTE | 2021-09-30 08:19 | Electrocardiogram Report ---
Test Reason : Blood Pressure : / mmHG Vent. 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
[2021-09-30] MEDS ORDERED: carvediloL 3.125 MG TAB PO SCH (09:00)
[2021-09-30] MEDS: traZODone HCL 50 MG TAB PO SCH ×2 (11:57→19:51)
[2021-09-30] MEDS: ISOSORBIDE MONO EXTENDED REL 60 MG TABCR PO SCH (11:57)
[2021-09-30] MEDS: DOCUSATE SODIUM 100 MG CAP PO SCH ×2 (11:58→19:49)
[2021-09-30 12:38] LABS: Basophils # (auto) 0.06 K/uL (0-0.2); Eosinophils # (auto) 0.19 K/uL (0-0.50); Eosinophils % (auto) 3.2 %; Hematocrit (blood only) 45.5 % (40.1-51.0); Hemoglobin 14.3 g/dl (14.0-18.0); Immature Granulocytes # (auto) 0.01 K/uL (0.00-0.02); Immature Granulocytes % (auto) 0.2 %; Lymphocytes # (auto) 1.46 K/uL (1.2-3.4); Lymphocytes % (auto) 24.7 %; Mean Corpuscular Hgb Conc 31.4 g/dL (32.0-36.0); Mean Platelet Volume 10.9 fL (9.4-12.4); Monocytes # (auto) 0.42 K/uL (0.24-0.82); Monocytes % (auto) 7.1 %; Neutrophils # (auto) 3.78 K/uL (1.4-6.5); Neutrophils % (auto) 63.8 %; Platelet Count 177 K/uL (130-400); RDW Coefficient of Variation 17.5 % (11.5-14.5); RDW Standard Deviation 57.7 fL (36.4-46.3); Red Blood Count 5.11 M/uL (4.63-6.08); White Blood Count 5.92 K/ul (4.8-10.8)
[2021-09-30 12:49] LABS: Partial Thromboplastin Ratio 1.1
[2021-09-30 13:06] LABS: Troponin I High Sensitivity 397.9 pg/ml (0-20)
[2021-09-30 13:07] LABS: BUN Creatinine Ratio 26.6 (10-20); Calcium 9.1 mg/dl (8.5-10.1); Creatinine Clr Calc Pharmacy 38.4 ml/min; Est GFR (African American) 45.4 ml/min; Est GFR (Non-African American) 39.1 ml/min; Potassium 3.4 mmol/L (3.5-5.1)
[2021-09-30] MEDS ORDERED: POTASSIUM CHLORIDE CRTAB 20 MEQ TABCR PO ONE (13:15)
--- NOTE | 2021-09-30 14:45 | Hospitalist Progress Note ---
Date of Service September 30, 2021 Assessment & Plan (1) Obstruction of esophagus due to food impaction: (2) Elevated troponin: Plan Esophageal food impaction with chest pain and elevated troponin; Faint Schatzki's ring at [facility] - Presented last night with food impaction and chest pain. [place] much better after removal of food bolus and no more chest pain. However, trop elevated 31- >397. Repeat trop pending. If repeat trop trending down or stable, he can go back to [facility] rehab. Believe that elevated trop and chest pain is demand ischemia due to food impaction and in setting of renal dysfunction. He adamantly declines any chest pain since removal of the obstruction. Continue minced and moist diet. - Repeat EGD in 4 weeks for dilation per GI Hypokalemia- repleted DM-2- A1c 7.6. Continue levemir, SSI CKD3- Cr relatively stable close to baseline of 1.4-1.6. Avoid nephrotoxics. DINO on CPAP Chronic systolic CHF with EF 30%- euvolemic, asymptomatic, no dyspnea DVT ppx-sc heparin Dispo- Trending trop. If stable to downtrending, can go back to [facility]. Admission and Anticipated Discharge Date Admission Date: September 30, 2021 Subjective He feels fine now, states he had bad chest pain last night but relieved after the EGD yesterday. No chest pain now. No N/V/SOB. Physical Exam Physical Exam: General: Lying comfortably in bed, not in distress, on room air Chest: Clear breath sounds bilaterally, no wheezes or crackles CVS: Regular rate and rhythm, normal heart sounds, no murmur Abdomen: Soft, non tender, not distended, normal bowel sounds Neuro: Awake, alert, oriented, conversing well, non focal Extremities: No edema Results & Data Results & Data ([facility]) Vital Signs (Past 12 Hours) Vital Signs Temp Pulse Resp BP Pulse Ox O2 Del Method 09/30/21 12:00 36.7 C 60 18 129/57 L 98 Room Air 09/30/21 08:00 36.6 C 68 16 93/47 L 95 Room Air 09/30/21 03:29 36.5 C 90 16 160/91 H 95 Room Air Laboratory Results Short CBC 09/29/21 09/30/21 Range/Units 23:14 12:14 WBC 6.90 5.92 (4.8-10.8) K/ul Hgb 15.4 14.3 (14.0-18.0) g/dl Hct 48.3 45.5 (40.1-51.0) % Plt Count 172 177 (130-400) K/uL BMP 09/29/21 09/30/21 23:14 12:14 Sodium 137 141 Potassium 3.7 3.4 L Chloride 101 106 Carbon Dioxide 25 28 BUN 44 H 46 H Creatinine 1.60 H 1.73 H Glucose 262 H 134 H Calcium 9.8 9.1 Liver Function 09/29/21 Range/Units 23:14 Total Bilirubin 1.0 (0.2-1.0) mg/dl AST 21 (13-39) U/L ALT 15 (7-52) U/L Alkaline Phosphatase 79 (34-104) U/L Albumin 4.4 (3.4-5.0) gm/dl Medications Administered Current Inpatient Medications Acetaminophen (Acetaminophen 325 Mg Tab) 650 mg PO Q6H PRN PRN Reason: Fever/pain Stop: 10/30/21 02:46 Last Admin: 09/30/21 06:25 Dose: 650 mg Acetaminophen/Codeine Phosphate (Acetaminophen W/Codeine #3 1 Tab) 1 tab PO QID PRN PRN Reason: pain not relieved by tylenol Stop: 10/30/21 03:16 Carvedilol (Carvedilol 3.125 Mg Tab) 3.125 mg PO QAM [facility] Stop: 10/30/21 03:19 Last Admin: 09/30/21 03:32 Dose: 3.125 mg Dextrose (Dextrose 50% 50 Ml Syringe) 25 - 50 ml IV UD PRN; Protocol PRN Reason: Hypoglycemia Protocol Stop: 10/30/21 02:26 Docusate Sodium (Docusate Sodium 100 Mg Cap) 100 mg PO BID AMANDO Stop: 10/30/21 08:59 Last Admin: 09/30/21 11:58 Dose: Not Given Glucagon (Glucagon For Inj 1 Mg Vial) 1 mg SQ UD PRN; Protocol PRN Reason: Hypoglycemia Protocol Stop: 10/30/21 02:26 Glucose (Glucose 40% Gel 15 Gm Tube) 15 - 30 gm PO UD PRN; Protocol PRN Reason: Hypoglycemia Protocol Stop: 10/30/21 02:26 Glucose (Glucose 10 Tab/Tube) 4 - 8 tab PO UD PRN; Protocol PRN Reason: Hypoglycemia Treatment Stop: 10/30/21 02:26 Heparin Sodium (Porcine) (Heparin Sod 5,000 Unit/0.5 Ml Vial) 5,000 units SQ Q8 AMANDO Stop: 10/30/21 05:59 Last Admin: 09/30/21 11:57 Dose: Not Given Hydromorphone HCl (Hydromorphone Inj 0.5 Mg/0.5 Ml Syr) 0.5 mg IV Q3H PRN PRN Reason: Pain Stop: 10/14/21 02:26 Sodium Chloride (Nss) 500 mls @ 50 mls/hr IV .Q10H STA Stop: 09/30/21 10:35 Last Infusion: 09/30/21 11:58 Dose: Infused Promethazine HCl 12.5 mg/ (Sodium Chloride) 50.5 mls @ 202 mls/hr IV Q6H PRN PRN Reason: Nausea And Vomiting Stop: 10/30/21 02:26 Insulin Aspart (Insulin Aspart Per Unit) 0 units SC Q6 AMANDO Stop: 10/30/21 02:44 Last Admin: 09/30/21 11:57 Dose: Not Given Insulin Detemir (Insulin Detemir Flexpen/Flex Touch 100 Units/Ml 3ml) 10 units SC DAILY AMANDO Stop: 10/31/21 08:59 Isosorbide Mononitrate (Isosorbide [place] Extended Rel 60 Mg Tabcr) 60 mg PO QAM AMANDO Stop: 10/30/21 08:59 Last Admin: 09/30/21 11:57 Dose: 60 mg Miscellaneous (Carbohydrates For Hypoglycemia ) 15 - 30 gm PO UD PRN PRN Reason: Hypoglycemia Protocol Stop: 10/30/21 02:26 Pantoprazole Sodium (Pantoprazole 40 Mg Tab) 40 mg PO DAILYBB AMANDO Stop: 10/30/21 06:29 Last Admin: 09/30/21 06:14 Dose: 40 mg Polyethylene Glycol (Polyethylene (Miralax) 17 Gm Pack) 17 gm PO QDL PRN PRN Reason: Constipation Stop: 10/30/21 02:59 Potassium Chloride (Potassium Chloride Crtab 20 Meq Tabcr) 20 meq PO ONE ONE Stop: 09/30/21 13:16 Risperidone (Risperidone 0.5 Mg Tablet) 0.25 mg PO HS AMANDO Stop: 10/30/21 20:59 Senna/Docusate Sodium (Docusate Sodium/Senna 50/8.6mg Tab) 1 tab PO QDL PRN PRN Reason: Constipation Stop: 10/30/21 02:59 Trazodone HCl (Trazodone Hcl 50 Mg Tab) 50 mg PO BID AMANDO Stop: 10/30/21 08:59 Last Admin: 09/30/21 11:57 Dose: 50 mg
[2021-09-30] MEDS ORDERED: risperiDONE 0.5 MG TABLET PO SCH (21:00)
[2021-10-01] MEDS: INSULIN ASPART PER UNIT SC SCH ×3 (00:25→11:54)
[2021-10-01] MEDS: HEPARIN SOD 5,000 UNIT/0.5 ML VIAL SQ SCH (06:13)
[2021-10-01] MEDS: traZODone HCL 50 MG TAB PO SCH (08:25)
[2021-10-01] MEDS: DOCUSATE SODIUM 100 MG CAP PO SCH (08:26)
[2021-10-01] MEDS: carvediloL 3.125 MG TAB PO SCH (08:26)
[2021-10-01] MEDS: PANTOprazole 40 MG TAB PO SCH (08:26)
[2021-10-01] MEDS: ISOSORBIDE MONO EXTENDED REL 60 MG TABCR PO SCH (08:27)
[2021-10-01] MEDS ORDERED: INSULIN DETEMIR FLEXPEN/FLEX TOUCH 100 UNITS/ML 3ML SC SCH (09:00)
--- NOTE | 2021-10-01 12:20 | Discharge Summary ---
Date of Service October 01, 2021 Admission HPI Per Admitting Provider History obtained from patient and records. Medical history significant for chronic systolic heart failure (EF 30%, TTE 2021), CAD/CVA/PVD, COPD, hypertension, hyperlipidemia, DM2 on oral medications, CRI (baseline creatinine 1.5), DINO on CPAP, chronic LE venous stasis, paranoid personality/schizoaffective disorder as per records. Last [facility] confinement May 2021 for decompensated heart failure. Patient has been admitted at [facility] rehab facility the last 3 weeks following in [facility] admission for weakness and acute renal failure. Patient waiting for placement at a personal nursing home as as patient's prior residence has been condemned 2 weeks ago, patient evaluated at the ER for possibly choking on some chicken followed by emesis. Patient subsequently discharged back to rehab facility. Last night around dinnertime, patient choked on a piece of barbecue chicken. Patient unable to swallow saliva. Achy chest pain without shortness of breath. No unusual cough symptoms. Patient brought to the ER for evaluation. 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 Impacted food was found in the lower third of the esophagus as per report. Food gently pushed down to the stomach. Small hiatal hernia with faint Schatzki's ring noted at GE junction. EGD recommended after 4 weeks for dilation procedure. Patient currently comfortable. Medical History as above Surgical History : Tonsillectomy Family History : Heart disease Personal/Social history : Non-smoker, no EtOH intake, retired from gasoline station work Admission Exam Per Admitting Provider GENERAL: Comfortable, no respiratory distress SKIN: Normal color, warm HEENT: Alopecia, [place] palpebral conjunctivae, no ptosis, dry buccal mucosa NECK : Supple, no tenderness CHEST : CTA, no tenderness HEART : RRR, no obvious murmurs ABDOMEN: Some distention, nontender EXTREMITIES : Minimal LE swelling, no LE tenderness, no other conspicuous deformities noted NEUROLOGIC : Coherent, no facial asymmetry, no other gross focality Principal Diagnosis Esophageal food impaction, elevated troponin Discharge Exam General: Lying comfortably in bed, not in distress, on room air Chest: Clear breath sounds bilaterally, no wheezes or crackles CVS: Regular rate and rhythm, normal heart sounds, no murmur Abdomen: Soft, non tender, not distended, normal bowel sounds Neuro: Awake, alert, oriented, conversing well, non focal Extremities: No edema Discharge Data Allergies Allergy/AdvReac Type Severity Reaction Status Date / Time aripiprazole [From Abilify] Allergy Unknown Unverified 09/30/21 01:38 lisinopril Allergy Unconscious Verified 09/30/21 01:38 oxycodone Allergy "stops my Verified 09/30/21 01:38 breathing" Penicillins Allergy Unknown Unverified 09/30/21 01:38 Sulfa (Sulfonamide Allergy Unknown Unverified 09/30/21 01:38 Antibiotics) tramadol Allergy "stops my Verified 09/30/21 01:38 breathing" amlodipine [From Norvasc] AdvReac Confusion Verified 09/30/21 01:38 cyclobenzaprine AdvReac Unknown Unverified 09/30/21 01:38 [From Flexeril] insulin glargine AdvReac muscle Verified 09/30/21 01:38 [From Lantus U-100 Insulin] spasms metformin AdvReac muscle Verified 09/30/21 01:38 spasms metoprolol AdvReac Hypertensio Verified 09/30/21 01:38 n quetiapine [From Seroquel] AdvReac Unknown Unverified 09/30/21 01:38 sitagliptin [From Januvia] AdvReac makes me Verified 09/30/21 01:38 just vibrate [id number] Reductase AdvReac "it Verified 09/30/21 01:38 Inhibitor destroys my organs Consultations 09/30/21 00:23 ED Decision to Admit Stat Procedures Performed Operation Date: 09/30/21 00:35 Actual Procedures p Upper Gastrointestinal Endoscopy with removal of Foreign Body(Not Applicable) - Christoph Yost MD Ordered Studies Laboratory Results WBC 5.92 K/ul (4.8-10.8) 09/30/21 12:14 RBC 5.11 M/uL (4.63-6.08) 09/30/21 12:14 Hgb 14.3 g/dl (14.0-18.0) 09/30/21 12:14 Hct 45.5 % (40.1-51.0) 09/30/21 12:14 MCV 89.0 fL (80.0-100.0) 09/30/21 12:14 MCH 28.0 pg (25.0-34.0) 09/30/21 12:14 MCHC 31.4 g/dL (32.0-36.0) L 09/30/21 12:14 RDW Std Deviation 57.7 fL (36.4-46.3) H 09/30/21 12:14 RDW Coeff of Pham 17.5 % (11.5-14.5) H 09/30/21 12:14 Plt Count 177 K/uL (130-400) 09/30/21 12:14 MPV 10.9 fL (9.4-12.4) 09/30/21 12:14 Immature Gran % (Auto) 0.2 % 09/30/21 12:14 Neut % (Auto) 63.8 % 09/30/21 12:14 Lymph % (Auto) 24.7 % 09/30/21 12:14 [place] % (Auto) 7.1 % 09/30/21 12:14 Eos % (Auto) 3.2 % 09/30/21 12:14 Baso % (Auto) 1.0 % 09/30/21 12:14 Neut # (Auto) 3.78 K/uL (1.4-6.5) 09/30/21 12:14 Lymph # (Auto) 1.46 K/uL (1.2-3.4) 09/30/21 12:14 [place] # (Auto) 0.42 K/uL (0.24-0.82) 09/30/21 12:14 Eos # (Auto) 0.19 K/uL (0-0.50) 09/30/21 12:14 Baso # (Auto) 0.06 K/uL (0-0.2) 09/30/21 12:14 Immature Gran # (Auto) 0.01 K/uL (0.00-0.02) 09/30/21 12:14 APTT 29.0 Seconds (21.0-31.0) 09/30/21 12:14 PTT Ratio 1.1 09/30/21 12:14 Sodium 141 mmol/L (136-145) 09/30/21 12:14 Potassium 3.4 mmol/L (3.5-5.1) L 09/30/21 12:14 Chloride 106 mmol/L (98-107) 09/30/21 12:14 Carbon Dioxide 28 mmol/L (21-32) 09/30/21 12:14 Anion Gap 7 (3-11) 09/30/21 12:14 BUN 46 mg/dl (6-23) H 09/30/21 12:14 Creatinine 1.73 mg/dl (0.6-1.4) H 09/30/21 12:14 Est Cr Clr Drug Dosing 38.4 ml/min 09/30/21 12:14 Est GFR ( Amer) 45.4 ml/min 09/30/21 12:14 Est GFR (Non-Af Amer) 39.1 ml/min 09/30/21 12:14 BUN/Creatinine Ratio 26.6 (10-20) H 09/30/21 12:14 Glucose 134 mg/dl (70-99(Fasting)) H 09/30/21 12:14 POC Glucose 105 mg/dl (70-99) H 10/01/21 06:17 Estimat Average Glucose 171 mg/dl 09/29/21 23:14 Hemoglobin A1c 7.6 % (4.5-5.6) H 09/29/21 23:14 Calcium 9.1 mg/dl (8.5-10.1) 09/30/21 12:14 Magnesium 1.7 mg/dl (1.7-2.4) 09/29/21 23:14 Total Bilirubin 1.0 mg/dl (0.2-1.0) 09/29/21 23:14 AST 21 U/L (13-39) 09/29/21 23:14 ALT 15 U/L (7-52) 09/29/21 23:14 Alkaline Phosphatase 79 U/L (34-104) 09/29/21 23:14 Troponin I High Sens 180.5 pg/ml (0-20) H* D 10/01/21 10:03 Total Protein 8.0 gm/dl (6.0-8.3) 09/29/21 23:14 Albumin 4.4 gm/dl (3.4-5.0) 09/29/21 23:14 Globulin 3.6 gm/dl (2.5-4.0) 09/29/21 23:14 Albumin/Globulin Ratio 1.2 (0.9-2) 09/29/21 23:14 Lipase 20 U/L (11-82) 09/29/21 23:14 SARS-CoV-2, RNA, NAAT NEGATIVE (NEGATIVE) 09/30/21 00:02 Impressions Chest X-Ray 09/29/21 23:03 XR chest 1V portable HISTORY: 71 years-old Male Chest Pain acute atypical chest pain COMPARISON: Chest radiograph and CTA chest 09/16/2021 TECHNIQUE: AP view of the chest FINDINGS: Cardiac silhouette is enlarged. Atherosclerosis of the aorta. No pneumothorax, large pleural effusion or overt pulmonary edema. There is unchanged interstitial coarsening of the lung bases suggestive of atelectasis/scarring. Degenerative ch anges of the shoulders and spine. IMPRESSION: Cardiomegaly without acute process. ACT 112: Negative or not required by law. The above report was generated using voice recognition software. It may contain grammatical, syntax or spelling errors. Electronically signed by: Mark Li M.D. 09/30/2021 7:21 AM Hospital Course (1) Obstruction of esophagus due to food impaction: (2) Elevated troponin: Plan Esophageal food impaction with chest pain and elevated troponin; Faint Schatzki's ring at [facility] - Presented the other night with food impaction and chest pain. [place] much better after removal of food bolus and no more chest pain. Trop elevated 31->397->409->180, repeat EKG without acute ischemic changes, tele reviewed, no CP since admission. trop elevation was likely demand ischemia. Continue minced and moist diet. - Repeat EGD in 4 weeks for dilation per GI Hypokalemia- mild, refused po repletion and refused repeat BMP. DM-2- A1c 7.6. Continue levemir, SSI CKD3- Cr relatively stable close to baseline of 1.4-1.6. Avoid nephrotoxics. Refused repeat BMP. Recommend repeat BMP in 3-4 days. DINO on CPAP Chronic systolic CHF with EF 30%- euvolemic, asymptomatic, no dyspnea He is comfortable and stable for discharge back to [facility] rehab. Total Time Total Time Spent Total Time Spent (In Minutes): 40 Discharge Plan Discharge Items Patient Disposition: Transfer Inpatient Rehab Fac Reason For Visit: CP, TROP ELEV, ESOPH FB Discharge Diagnosis: Esophageal food impaction Activity: Resume your previous activity Non-emergency contact: Primary Care Provider Call non-emergency contact if: you have any medication questions, your symptoms worsen and your pain is concerning for you Follow-up/Referrals: Scarlett Quiroz MD [Primary Care Provider] - Diet: Carb Consistent or DM2 Diet Texture: Easy to Chew Diet Comment: minced and moist diet Addtl Attending Provider Instructions: Recommend minced and moist diet GI recommends repeat upper endoscopy in 4 weeks for dilation No medications were changed at discharge. Pending Studies at Discharge: No Stand-Alone Forms: [facility], Virtual Emergency Department, Important Visit Information Skilled Items Patient informed of condition?: Yes DNR: No Discharge Level of Care: Acute rehab Communicable Disease: No Discharge Prognosis: Stable Lines: None Urinary Catheter: No Medications and DC Order Prescriptions: Continued furosemide 40 mg tablet 40 mg PO BID trazodone 50 mg tablet 50 mg PO BID carvedilol 3.125 mg tablet 3.125 mg PO QAM docusate sodium 100 mg Capsule 100 mg PO BID enoxaparin 40 mg/0.4 mL Syringe 40 mg SUBCUT DAILY isosorbide mononitrate 60 mg Tablet Extended Release 24 Hr 60 mg PO QAM risperidone 0.25 mg Tablet 0.25 mg PO HS silver sulfadiazine 1 % Cream 1 applic TOPICAL BID acetaminophen [Tylenol] 325 mg Tablet 650 mg PO Q4H PRN (Reason: Pain) bisacodyl 10 mg Suppository 10 mg MA DAILY PRN (Reason: Constipation) sennosides-docusate sodium [Senna with Docusate Sodium] 8.6-50 mg Tablet 1 tab-cap PO .DAILY@LUNCH PRN (Reason: Constipation) magnesium hydroxide [Milk of Magnesia] 400 mg/5 mL Suspension 30 ml PO DAILY PRN (Reason: Constipation) ondansetron 4 mg Tablet,Disintegrating 4 mg PO Q6H PRN (Reason: Nausea) polyethylene glycol 3350 17 gram/dose Powder 17 g PO .DAILY@LUNCH PRN (Reason: Constipation) Fleet Enema 19-7 gram/118 mL Enema 118 ml MA DAILY PRN (Reason: Constipation) glipizide 2.5 mg tablet extended release 24 hr 2.5 mg PO QAM pantoprazole 40 mg tablet,delayed release (DR/EC) 40 mg PO DAILYBB Discharge Orders: Discharge Order (Routine); Ordered 10/01/21 Ordered By: Seb Jacobo/Other Patient Handouts: Managing Type 2 Diabetes Admission Data Admit Date/Time: 09/30/21 01:27 Attending Provider: Seb Dover Admit Provider: Calin Puente Primary Care Provider: Scarlett Quiroz Other Providers: Calin Puente ; [facility]
--- NOTE | 2021-10-01 16:01 | Electrocardiogram Report ---
Test Reason : Blood Pressure : / mmHG Vent. Rate : 064 BPM Atrial Rate : 064 BPM P-R Int : 292 ms QRS Dur : 102 ms QT Int : 410 ms P-R-T Axes : 035 -31 118 degrees QTc Int : 422 ms Sinus rhythm with sinus arrhythmia with 1st degree A-V block with occasional Premature ventricular co mplexes Left axis deviation Inferior infarct (cited on or before 17-DEC-2020) Anterolateral infarct (cited on or before 17-DEC-2020) Abnormal ECG When compared with ECG of 29-SEP-2021 23:07, Premature ventricular complexes are now Present [place] interval has increased Vent. rate has decreased BY 36 BPM Confirmed by Ayo Mauricio ([id number]) on 10/01/2021 4:01:07 PM Referred By: REFERRED SELF Confirmed By:Ayo Mauricio
== END 2021-10-01 14:10 ==
LOC: ED 22:59 → 1E 09-30 01:26 → ASU 09-30 01:26